=== PATIENT | female | born 1970 | race Hispanic/Latino ===

== ENCOUNTER 2017-12-24 20:55 | Observation (INO) | payer BC ==
--- NOTE | 2017-12-24 21:19 | ED PDOC ---
Arrival/HPI - General Chief Complaint: Chest Pain Time Seen by Provider: 12/24/17 21:04 Historian: Patient - History of Present Illness Narrative History of Present Illness (Text): 12/24/17 21:18 47 year old obese female, with past medical history of hypertension and cardiac stents, presents to the Emergency department complaining of mild distress due to diffused chest discomfort which began 45 minutes prior to arrival. Patient describes the pain as "something grabbing her chest". Patient informs associated nausea and radiation of discomfort to her left arm. Patient tales aspirin 81mg every 3 days, last taken yesterday. Patient denies any fever, chills, vomiting, abdominal pain, diet changes, cough, shortness of breath or any other complaints. Patient admits to smoking 1 pack of cigarettes on a daily basis but drinks alcohol very rarely. Time/Duration: 1 hour Symptom Onset: Gradual Symptom Course: Improving Quality: Aching Activities at Onset: Light Context: Home Past Medical History - Provider Review Nursing Documentation Reviewed: Yes - Cardiac Hx Cardiac Disorders: Yes Hx Hypertension: Yes Other/Comment: stent x1 2013 - Pulmonary Hx Respiratory Disorders: No - Neurological Hx Neurological Disorder: No - HEENT Hx HEENT Disorder: No - Renal Hx Renal Disorder: No - Endocrine/Metabolic Hx Endocrine Disorders: No - Hematological/Oncological Hx Blood Disorders: No - Integumentary Hx Dermatological Disorder: No - Musculoskeletal/Rheumatological Hx Musculoskeletal Disorders: No - Gastrointestinal Hx Gastrointestinal Disorders: Yes Hx Diverticulitis: Yes Hx Irritable Bowel: Yes - Genitourinary/Gynecological Hx Genitourinary Disorders: No - Psychiatric Hx Psychophysiologic Disorder: No Hx Substance Use: No - Surgical History Hx Appendectomy: Yes Hx Cardiac Catheterization: Yes Hx Section: Yes (x2) Hx Tubal Ligation: Yes Other/Comment: left ovary/fallopian tube removal Family/Social History - Physician Review Nursing Documentation Reviewed: Yes Family/Social History: No Known Family HX Smoking Status: Heavy Smoker > 10 Cigarettes Daily Hx Alcohol Use: Yes Frequency of alcohol use: Socially Hx Substance Use: No Allergies/Home Meds Allergies/Adverse Reactions: Allergies Sulfa (Sulfonamide Antibiotics) Adverse Reaction (Verified 04/19/16 17:21) Home Medications: Home Meds Medication Instructions Recorded Confirmed ALPRAZolam [Xanax] 0.25 mg PO DAILY PRN 04/19/16 12/24/17 Losartan [Cozaar] 50 mg PO BID 04/19/16 12/24/17 Metoprolol Succinate [Toprol Xl] 50 mg PO DAILY 04/19/16 12/24/17 Topiramate [Topamax] 25 mg PO BID 04/19/16 12/24/17 Chlorthalidone [Hygroton] 25 mg PO DAILY 12/24/17 12/24/17 NIFEdipine ER [Procardia XL] 30 mg PO DAILY 12/24/17 12/24/17 Review of Systems - Physician Review All systems were reviewed & negative as marked: Yes - Review of Systems Constitutional: Normal. absent: Fevers Eyes: Normal ENT: Normal Respiratory: Normal. absent: SOB, Cough Cardiovascular: Chest Pain Gastrointestinal: Nausea. absent: Abdominal Pain, Diarrhea, Vomiting, Appetite Changes Genitourinary Female: Normal Musculoskeletal: Normal Skin: Normal Neurological: Normal Endocrine: Normal Hemo/Lymphatic: Normal Psychiatric: Normal Physical Exam Vital Signs Reviewed: Yes Vital Signs Temp Pulse Resp BP Pulse Ox 12/25/17 02:30 60 26 H 106/58 L 98 12/25/17 00:14 62 17 117/76 97 12/24/17 22:41 97.3 F L 67 25 H 103/60 100 12/24/17 21:14 76 15 128/77 98 Temperature: Afebrile Blood Pressure: Normal Pulse: Regular Respiratory Rate: Normal Appearance: Positive for: Well-Appearing, Non-Toxic, Comfortable, Other (obese) Pain Distress: Mild Mental Status: Positive for: Alert and Oriented X 3 - Systems Exam Head: Present: Atraumatic, Normocephalic Pupils: Present: PERRL Extroacular Muscles: Present: EOMI Conjunctiva: Present: Normal Mouth: Present: Moist Mucous Membranes Neck: Present: Normal Range of Motion. No: JVD Respiratory/Chest: Present: Clear to Auscultation, Good Air Exchange. No: Respiratory Distress, Accessory Muscle Use Cardiovascular: Present: Regular Rate and Rhythm, Normal S1, S2, Other (no reproducible chest wall tenderness to palpation). No: Murmurs Abdomen: Present: Normal Bowel Sounds. No: Tenderness, Distention, Peritoneal Signs Back: Present: Normal Inspection Upper Extremity: Present: Normal Inspection. No: Cyanosis, Edema Lower Extremity: Present: Normal Inspection. No: Edema Neurological: Present: GCS=15, CN II-XII Intact, Speech Normal Skin: Present: Warm, Dry, Normal Color. No: Rashes Psychiatric: Present: Alert, Oriented x 3, Normal Insight, Normal Concentration Medical Decision Making ED Course and Treatment: 12/24/17 21:27 Impression: 47 year old female presents to the Emergency department for chest discomfort. Plan: -- Labs -- Reassess and disposition Progress Notes: 12/24/17 21:27 EKG: Ordered, reviewed, and independently interpreted the EKG. Rate : 75 BPM Rhythm : NSR Interpretation : No acute changes. - Lab Interpretations Lab Results: 12/24/17 21:20 12/24/17 21:20 Lab Results 12/24/17 21:20: D-Dimer, Quantitative 217 12/24/17 21:20: Sodium 141, Potassium 3.2 L, Chloride 109 H, Carbon Dioxide 23, Anion Gap 12, BUN 11, Creatinine 0.7, Est GFR ( Amer) > 60, Est GFR (Non- Af Amer) > 60, Random Glucose 107, Calcium 9.4, Total Bilirubin 0.4, AST 44 H, ALT 15, Alkaline Phosphatase 94, Troponin I < 0.01, Total Protein 6.8, Albumin 3.8, Globulin 3.1, Albumin/Globulin Ratio 1.2 12/24/17 21:20: WBC 10.4, RBC 4.08, Hgb 13.2, Hct 40.6, MCV 99.5, MCH 32.4, MCHC 32.5, RDW 13.2, Plt Count 291, MPV 10.3, Gran % 47.8 L, Lymph % (Auto) 44.4 H, [place] % (Auto) 4.8, Eos % (Auto) 2.7, Baso % (Auto) 0.3, Gran # 4.98, Lymph # (Auto) 4.6 H, [place] # (Auto) 0.5, Eos # (Auto) 0.3, Baso # (Auto) 0.03 - RAD Interpretation Radiology Orders: 12/24/17 22:23 CHEST PORTABLE [RAD] Stat 12/25/17 00:08 HEAD W/O CONTRAST [CT] Stat - Medication Orders Current Medication Orders: Acetaminophen (Tylenol 325mg Tab) 650 mg PO Q4 PRN PRN Reason: Fever >100.4 F Last Admin: 12/25/17 05:57 Dose: 650 mg Re-Assess: MAR Pain/Vitals Document 12/25/17 06:57 (Rec: 12/25/17 08:19 [id number]) Pain Reassessment Is This A Pain ReAssessment? Yes Presence of Pain Presence of Pain No Alprazolam (Xanax) 0.25 mg PO DAILY PRN; Protocol PRN Reason: Anxiety Stop: 01/01/18 02:48 Last Admin: 12/25/17 09:18 Dose: 0.25 mg Behavioural Document 12/25/17 09:18 (Rec: 12/25/17 09:18 [id number]) Maintenance Maintenance Dose Yes Re-Assess: Reassess Psych Meds Document 12/25/17 10:18 (Rec: 12/25/17 10:56 [id number]) Reassess Psych Med Effective Aspirin (Ecotrin) 81 mg PO DAILY [facility] Last Admin: 12/25/17 09:18 Dose: 81 mg Atorvastatin Calcium (Lipitor) 40 mg PO DIN [facility] Sodium Chloride (Sodium Chloride 0.9%) 1,000 mls @ 100 mls/hr IV .Q10H [facility] Last Admin: 12/25/17 04:00 Dose: 100 mls/hr eMAR Start Stop Document 12/25/17 04:00 TTC (Rec: 12/25/17 05:57 TTC [facility] [id number]) Intravenous Solution Start Date 12/25/17 Start Time 05:57 Metoprolol Succinate (Toprol Xl) 50 mg PO DAILY [facility] Last Admin: 12/25/17 09:17 Dose: Not Given Non-Admin Reason: BP Parameters Not Met [facility] Pulse and Blood Pressure Document 12/25/17 09:17 (Rec: 12/25/17 09:18 [id number]) Pulse Pulse Rate (60-90) 77 Blood Pressure Blood Pressure (100/60-150/90) 102/43 Nicotine (Nicoderm Cq) 1 patch TD DAILY [facility] Last Admin: 12/25/17 09:18 Dose: 1 patch MAR Transdermal Patch Site Document 12/25/17 09:18 (Rec: 12/25/17 09:19 [id number]) Transdermal Patch Site Transdermal Patch Site Left Shoulder Nifedipine (Procardia Xl) 30 mg PO DAILY [facility] Last Admin: 02/11/18 10:55 Dose: Pantoprazole Sodium (Protonix Ec Tab) 40 mg PO 0600 [facility] Last Admin: 12/25/17 05:58 Dose: 40 mg Discontinued Medications Acetaminophen (Tylenol 325mg Tab) 975 mg PO STAT STA Stop: 12/24/17 23:06 Last Admin: 12/24/17 23:19 Dose: 975 mg Acetaminophen/Butalbital/Caffeine (Fioricet) 1 tab PO ONCE ONE Stop: 12/25/17 09:02 Last Admin: 12/25/17 09:16 Dose: 1 tab [facility] Pain Assessment Document 12/25/17 09:16 (Rec: 12/25/17 09:17 [id number]) Pain Reassessment Is this a pain reassessment? No Presence of Pain Presence of Pain Yes Pain Scale Used Pain Scale Used Numeric Location Pain Location Body [employer] Description Intensity of Pain at present 10 Acceptable Level of Pain 8 Re-Assess: [facility] Pain Assessment Document 12/25/17 10:16 DH (Rec: 12/25/17 10:56 [id number]) Pain Reassessment Is this a pain reassessment? Yes Presence of Pain Presence of Pain No Sodium Chloride (Sodium Chloride 0.9%) 500 mls @ 999 mls/hr IV .Q31M STA Stop: 12/24/17 22:47 Last Admin: 12/24/17 22:25 Dose: 999 mls/hr eMAR Start Stop Document 12/24/17 22:25 CNR (Rec: 12/24/17 22:25 CNR [id number]) Intravenous Solution Start Date 12/24/17 Start Time 22:25 Sodium Chloride (Sodium Chloride 0.9%) 500 mls @ 999 mls/hr IV .Q31M STA Stop: 12/24/17 23:08 Last Admin: 12/24/17 23:01 Dose: 999 mls/hr eMAR Start Stop Document 12/24/17 23:01 CNR (Rec: 12/24/17 23:01 CNR [id number]) Intravenous Solution Start Date 12/24/17 Start Time 23:01 Ketorolac Tromethamine (Toradol) 30 mg IVP STAT STA Stop: 12/24/17 22:19 Last Admin: 12/24/17 22:25 Dose: 30 mg MAR Pain Assessment Document 12/24/17 22:25 CNR (Rec: 12/24/17 22:25 CNR [id number]) Pain Reassessment Is this a pain reassessment? Yes IVP Administration Document 12/24/17 22:25 CNR (Rec: 12/24/17 22:25 CNR [id number]) Charges for Administration # of IVP Administrations 1 Ondansetron HCl (Zofran Inj) 4 mg IVP STAT STA Stop: 12/25/17 08:59 Last Admin: 12/25/17 09:16 Dose: 4 mg IVP Administration Document 12/25/17 09:16 DH (Rec: 12/25/17 09:16 [id number]) Charges for Administration # of IVP Administrations 1 Potassium Chloride (K-Dur 20 Meq Er Tab) 20 meq PO STAT STA Stop: 12/24/17 23:08 Last Admin: 12/24/17 23:19 Dose: 20 meq Potassium Chloride (K-Dur 20 Meq Er Tab) 40 meq PO STAT STA Stop: 12/25/17 10:06 - Scribe Statement The provider has reviewed the documentation as recorded by the Scribe Linnette Abdul. All medical record entries made by the Sergioibamanda were at my direction and personally dictated by me. I have reviewed the chart and agree that the record accurately reflects my personal performance of the history, physical exam, medical decision making, and the department course for this patient. I have also personally directed, reviewed, and agree with the discharge instructions and disposition. Disposition/Present on Arrival - Present on Arrival Any Indicators Present on Arrival: No History of DVT/PE: No History of Uncontrolled Diabetes: No Urinary Catheter: No History of Decub. Ulcer: No History Surgical Site Infection Following: None - Disposition Have Diagnosis and Disposition been Completed?: Yes Diagnosis: Chest pain, Numbness Disposition: HOSPITALIZED Disposition Time: 02:30 Patient Plan: Admission Patient Problems: Current Active Problems Problem Status Onset Chest pain Acute Numbness Acute Condition: STABLE
[2017-12-24 22:12] LABS: BASO # 0.03 K/mm3 (0.0-2.0); BASO % 0.3 % (0.0-3.0); EOS # 0.3 (0.0-0.7); EOS % 2.7 % (1.5-5.0); GRAN # 4.98 (1.4-6.5); GRAN % 47.8 % (50.0-68.0); HEMOGLOBIN 13.2 g/dL (12.0-16.0); LYMPH # 4.6 (1.2-3.4); LYMPH % 44.4 % (22.0-35.0); MEAN CELL VOLUME 99.5 fl (80.0-105.0); MEAN CORPUSCULAR HEMOGLOBIN 32.4 pg (25.0-35.0); MEAN CORPUSCULAR HGB CONC 32.5 g/dl (31.0-37.0); MEAN PLATELET VOLUME 10.3 fl (7.0-11.0); MONO # 0.5 (0.1-0.6); MONO % 4.8 % (1.0-6.0); RBC 4.08 10^6/uL (3.5-6.1); RED CELL DISTRIBUTION WIDTH 13.2 % (11.5-14.5); WHITE BLOOD COUNT 10.4 10^3/ul (4.5-11.0)
[2017-12-24] MEDS ORDERED: Sodium Chloride 0.9% 500 ML IV STA ×2 (22:17→22:38)
[2017-12-24 22:45] LABS: ALB/GLOB RATIO 1.2 (1.1-1.8); ALBUMIN 3.8 g/dL (3.0-4.8); ALT/SGPT 15 U/L (7-56); AST/SGOT 44 U/L (14-36); BLOOD UREA NITROGEN 11 mg/dL (7-21); CALCIUM 9.4 mg/dL (8.4-10.5); GFR AFRICAN-AMERICAN > 60; GFR NON-AFRICAN AMERICAN > 60
[2017-12-24 23:02] LABS: TROPONIN I < 0.01 ng/mL
[2017-12-24] MEDS ORDERED: Potassium Chloride 20 mEq ER Tab PO STA (23:07)
--- NOTE | 2017-12-24 23:24 | ED PDOC ---
Physical Exam - Physical Exam Narrative Physical Exam (Text): pt with chest pain, intermittent, improved, numbness/tingling sensation. to fu d -dimer, ct head. 12/25/17 00:42 NIHSS 0 12/25/17 01:43 Vital Signs Reviewed: Yes Vital Signs Temp Pulse Resp BP Pulse Ox 12/25/17 00:14 62 17 117/76 97 12/24/17 22:41 97.3 F L 67 25 H 103/60 100 12/24/17 21:14 76 15 128/77 98 Blood Pressure: Normal Pulse: Regular Respiratory Rate: Normal Appearance: Positive for: Well-Appearing, Non-Toxic, Comfortable Pain Distress: None Mental Status: Positive for: Alert and Oriented X 3 - Systems Exam Head: Present: Atraumatic, Normocephalic Pupils: Present: PERRL Extroacular Muscles: Present: EOMI Conjunctiva: Present: Normal Ears: Present: Normal Mouth: Present: Moist Mucous Membranes Pharnyx: Present: Normal Nose (External): Present: Atraumatic Nose (Internal): Present: Normal Inspection Neck: Present: Normal Range of Motion Respiratory/Chest: Present: Clear to Auscultation, Good Air Exchange Cardiovascular: Present: Regular Rate and Rhythm Abdomen: No: Tenderness, Distention, Normal Bowel Sounds, Peritoneal Signs, Rebound, Guarding, McBurney's Point Tender, Rovsing's Sign Present, Hernias, Feeding Tubes, Ostomy Tubes, Mass/Organomegaly, Scars, Other Back: Present: Normal Inspection Upper Extremity: Present: Normal Inspection Lower Extremity: Present: Normal Inspection Neurological: Present: GCS=15, CN II-XII Intact, Speech Normal, Motor Func Grossly Intact Skin: Present: Warm, Normal Color Psychiatric: Present: Alert, Oriented x 3, Normal Insight, Normal Concentration Medical Decision Making ED Course and Treatment: 12/24/17 23:23pt with chest pain, intermittent, improved, numbness/tingling sensation. to fu d-dimer, ct head. NIHSS 0 Patient signed out to me by Dr. Erickson. Pending D-Dimer. CXR no acute. 12/25/17 00:32 CT Head Without Intravenous Contrast FINDINGS: Brain: Mild atrophy. No intracranial hemorrhage. No mass. Dilated perivascular space vs chronic lacunar infarct about LEFT basal ganglia. No definite edema. Ventricles: No hydrocephalus. Bones/joints: No acute fracture. Soft tissues: Unremarkable. Vasculature: Mild atherosclerotic disease of intracranial arteries. Sinuses: Scattered minimal mucosal thickening. Mastoid air cells: Minimal fluid within RIGHT mastoid. Orbits: Unremarkable as visualized. IMPRESSION: 1. No definite acute intracranial abnormality. Acute infarction may be CT occult within first 24 hours. If a focal deficit persists, consider followup CT or MRI for further evaluation. 2. Incidental/non-acute findings are described above. 12/25/17 01:44 12/25/17 01:46 d/w Dr. Seth medical imaging technologist and stated can admit. Reassessment Condition: Improved - Lab Interpretations Lab Results: 12/24/17 21:20 12/24/17 21:20 Lab Results 12/24/17 21:20: D-Dimer, Quantitative 217 12/24/17 21:20: Sodium 141, Potassium 3.2 L, Chloride 109 H, Carbon Dioxide 23, Anion Gap 12, BUN 11, Creatinine 0.7, Est GFR ( Amer) > 60, Est GFR (Non- Af Amer) > 60, Random Glucose 107, Calcium 9.4, Total Bilirubin 0.4, AST 44 H, ALT 15, Alkaline Phosphatase 94, Troponin I < 0.01, Total Protein 6.8, Albumin 3.8, Globulin 3.1, Albumin/Globulin Ratio 1.2 12/24/17 21:20: WBC 10.4, RBC 4.08, Hgb 13.2, Hct 40.6, MCV 99.5, MCH 32.4, MCHC 32.5, RDW 13.2, Plt Count 291, MPV 10.3, Gran % 47.8 L, Lymph % (Auto) 44.4 H, [place] % (Auto) 4.8, Eos % (Auto) 2.7, Baso % (Auto) 0.3, Gran # 4.98, Lymph # (Auto) 4.6 H, [place] # (Auto) 0.5, Eos # (Auto) 0.3, Baso # (Auto) 0.03 I have reviewed the lab results: Yes - RAD Interpretation Radiology Orders: 12/24/17 22:23 CHEST PORTABLE [RAD] Stat 12/25/17 00:08 HEAD W/O CONTRAST [CT] Stat Registered Dietetic Technician: Radiologist - EKG Interpretation Interpreted by ED Physician: Yes (NSR) Type: 12 lead EKG - Medication Orders Current Medication Orders: Discontinued Medications Acetaminophen (Tylenol 325mg Tab) 975 mg PO STAT STA Stop: 12/24/17 23:06 Last Admin: 12/24/17 23:19 Dose: 975 mg Sodium Chloride (Sodium Chloride 0.9%) 500 mls @ 999 mls/hr IV .Q31M STA Stop: 12/24/17 22:47 Last Admin: 12/24/17 22:25 Dose: 999 mls/hr eMAR Start Stop Document 12/24/17 22:25 CNR (Rec: 12/24/17 22:25 CNR [id number]) Intravenous Solution Start Date 12/24/17 Start Time 22:25 Sodium Chloride (Sodium Chloride 0.9%) 500 mls @ 999 mls/hr IV .Q31M STA Stop: 12/24/17 23:08 Last Admin: 12/24/17 23:01 Dose: 999 mls/hr eMAR Start Stop Document 12/24/17 23:01 CNR (Rec: 12/24/17 23:01 CNR [id number]) Intravenous Solution Start Date 12/24/17 Start Time 23:01 Ketorolac Tromethamine (Toradol) 30 mg IVP STAT STA Stop: 12/24/17 22:19 Last Admin: 12/24/17 22:25 Dose: 30 mg MAR Pain Assessment Document 12/24/17 22:25 CNR (Rec: 12/24/17 22:25 CNR [id number]) Pain Reassessment Is this a pain reassessment? Yes IVP Administration Document 12/24/17 22:25 CNR (Rec: 12/24/17 22:25 CNR [id number]) Charges for Administration # of IVP Administrations 1 Potassium Chloride (K-Dur 20 Meq Er Tab) 20 meq PO STAT STA Stop: 12/24/17 23:08 Last Admin: 12/24/17 23:19 Dose: 20 meq - Scribe Statement The provider has reviewed the documentation as recorded by the Silvestre Espinal Provider Scribe Attestation: All medical record entries made by the Sergioibamanda were at my direction and personally dictated by me. I have reviewed the chart and agree that the record accurately reflects my personal performance of the history, physical exam, medical decision making, and the department course for this patient. I have also personally directed, reviewed, and agree with the discharge instructions and disposition. Disposition/Present on Arrival - Present on Arrival Any Indicators Present on Arrival: Yes History of DVT/PE: No History of Uncontrolled Diabetes: No Urinary Catheter: No History of Decub. Ulcer: No History Surgical Site Infection Following: None - Disposition Have Diagnosis and Disposition been Completed?: Yes Diagnosis: Chest pain, Numbness Disposition: HOSPITALIZED Disposition Time: 01:53 Patient Plan: Admission, Telemetry Condition: STABLE Discharge Instructions (ExitCare): Chest Pain (ED) Referrals: PCP,NO [Primary Care Provider] - Follow up with primary Forms: [employer] ([place]) NIHSS Stroke Scale 3 - Date/Time Evaluation Performed Date Performed: 12/25/17 When Was NIHSS Performed: Baseline - How Severe is the Stroke Level of Consciousness: 0=Alert LOC to Questions: 0=Both comments correct LOC to commands: 0=Obeys both correctly Best Gaze: 0=Normal Visual: 0=No visual loss Facial: 0=Normal Motor Arm - Left: 0=No drift Motor Arm - Right: 0=No drift Motor Leg - Left: 0=No drift Motor Leg - Right: 0=No drift Limb Ataxia: 1=Present Upper or Lower Sensory: 0=Normal Best Language: 0=No aphasia Dysarthia: 0=Normal articulation Extinction & Inattention (Neglect): 0=Normal, no object Score: 1 Severity Of Stroke: 0 = No Stroke
--- NOTE | 2017-12-25 00:49 | CT ---
EXAM: CT Head Without Intravenous Contrast CLINICAL HISTORY: 47 years old, female; Signs and symptoms; Dizziness and numbness / parasthesia; Additional info: 47yof, numbness TECHNIQUE: Axial computed tomography images of the head/brain without intravenous contrast. All CT scans at this facility use one or more dose reduction techniques, viz.: automated exposure control; ma/kV adjustment per patient size (including targeted exams where dose is matched to indication; i.e. head); or iterative reconstruction technique. Coronal and sagittal reformatted images were created and reviewed. COMPARISON: No relevant prior studies available. FINDINGS: Brain: Mild atrophy. No intracranial hemorrhage. No mass. Dilated perivascular space vs chronic lacunar infarct about LEFT basal ganglia. No definite edema. Ventricles: No hydrocephalus. Bones/joints: No acute fracture. Soft tissues: Unremarkable. Vasculature: Mild atherosclerotic disease of intracranial arteries. Sinuses: Scattered minimal mucosal thickening. Mastoid air cells: Minimal fluid within RIGHT mastoid. Orbits: Unremarkable as visualized. IMPRESSION: 1. No definite acute intracranial abnormality. Acute infarction may be CT occult within first 24 hours. If a focal deficit persists, consider followup CT or MRI for further evaluation. 2. Incidental/non-acute findings are described above.
--- NOTE | 2017-12-25 03:04 | CP.PCM.HP ---
<Rolo Landeros - Last Filed: 12/25/17 03:16> History of Present Illness - History of Present Illness History of Present Illness: Rolo Landeros PGY1 IM H&P Note CC: chest pain Ms. 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 The patient denied any change in symptoms with breathing and denied any cough, vomiting or any recent illness or sick contacts. She described the pain as sharp and starting mid-sternal but spreading across. The pain lasted 10mins then resolved but she experienced two similar episodes since then. during one of those episodes, the patient experienced diffuse numbness of face, and fingers /toes, however, the patient did not think much of it due to her history of fibromyalgia. Patient was a patient of Dr. Padilla who recently moved, so as of now she has no PMD. Patient's medications are being managed by Dr. Barrera and she states that she was once requiring 7 medications to control her BP but that she is down to 4 now. She states that Dr. Barrera has recommended another physician in [place] for her to see to control her BP, and that she has an appointment with him on Tuesday. Patient last saw Dr. Jones in 07/2017 and he performed an echo which was negative. Patient denies headaches, changes in vision, slurring of speech, wheezing, cough, rhinorrhea, muscle aches, abdominal pain, weakness. 12-pt ROS was reviewed and is otherwise unremarkable. PMH: as above PSH: multiple L shoulder surgeries, 2 c-sections, tubal ligation, L oophrectomy (Due to mass), D&C Meds: as per MAR Allergies: Sulfa (skin rash) SHx: lives w/ family, 1pk tobacco smoker per day for 35 years, social ETOH, denies illicit substance abuse FHx: mother (+heart dz, +kidney dz) Present on Admission - Present on Admission Any Indicators Present on Admission: No Review of Systems - Review of Systems All systems: reviewed and no additional remarkable complaints except (as per HPI ) Past Patient History - Past Medical History & Family History Past Medical History?: Yes - Past Social History Smoking Status: Heavy Smoker > 10 Cigarettes Daily Alcohol: Social Drugs: Denies Home Situation {Lives}: With Family - CARDIAC Hx Cardiac Disorders: Yes Hx Hypertension: Yes Other/Comment: stent x1 2013 - PULMONARY Hx Respiratory Disorders: No - NEUROLOGICAL Hx Neurological Disorder: No - HEENT Hx HEENT Problems: No - RENAL Hx Chronic Kidney Disease: No - ENDOCRINE/METABOLIC Hx Endocrine Disorders: No - HEMATOLOGICAL/ONCOLOGICAL Hx Blood Disorders: No - INTEGUMENTARY Hx Dermatological Problems: No - MUSCULOSKELETAL/RHEUMATOLOGICAL Hx Musculoskeletal Disorders: No - GASTROINTESTINAL Hx Gastrointestinal Disorders: Yes Hx Diverticulitis: Yes Hx Irritable Bowel: Yes - GENITOURINARY/GYNECOLOGICAL Hx Genitourinary Disorders: No - PSYCHIATRIC Hx Psychophysiologic Disorder: No Hx Substance Use: No - SURGICAL HISTORY Hx Appendectomy: Yes Hx Cardiac Catheterization: Yes Hx Section: Yes (x2) Hx Tubal Ligation: Yes Other/Comment: left ovary/fallopian tube removal Meds Allergies/Adverse Reactions: Allergies Allergy/AdvReac Type Severity Reaction Status Date / Time Sulfa (Sulfonamide AdvReac Verified 04/19/16 17:21 Antibiotics) Physical Exam - Constitutional Appears: Well, Non-toxic, No Acute Distress - Head Exam Head Exam: ATRAUMATIC, NORMAL INSPECTION - Eye Exam Eye Exam: EOMI, Normal appearance, PERRL - ENT Exam ENT Exam: Mucous Membranes Moist, Normal Exam - Neck Exam Neck exam: Positive for: Normal Inspection - Respiratory Exam Respiratory Exam: Clear to Auscultation Bilateral, NORMAL BREATHING PATTERN. absent: Rales, Rhonchi, Wheezes, Respiratory Distress - Cardiovascular Exam Cardiovascular Exam: RRR, +S1, +S2. absent: Gallop, JVD, Rubs, Systolic Murmur - GI/Abdominal Exam GI & Abdominal Exam: Normal Bowel Sounds, Soft. absent: Distended, Tenderness - Extremities Exam Extremities exam: Positive for: normal inspection - Back Exam Back exam: NORMAL INSPECTION - Neurological Exam Neurological exam: Alert, CN II-XII Intact, Oriented x3 - Psychiatric Exam Psychiatric exam: Normal Affect, Normal Mood - Skin Skin Exam: Normal Color, Warm Results - Vital Signs Recent Vital Signs: Last Vital Signs Temp 97.3 F L 12/24/17 22:41 Pulse 60 12/25/17 02:30 Resp 26 H 12/25/17 02:30 BP 106/58 L 12/25/17 02:30 Pulse Ox 98 12/25/17 02:30 - Labs Result Diagrams: 12/24/17 21:20 12/24/17 21:20 Assessment & Plan - Assessment and Plan (Free Text) Assessment: 47yo female with a PMH of HTN, CAD s/p 1 stent, morbid obesity, diverticulitis, tobacco use and fibromyalgia who presents with chest pain and associated shortness of breath and nausea x3 hours. GERA risk index 13 (low risk ), however, given risk factors of hx cardiac disease w/ stent, obesity, htn, tobacco use and family history, the patient will be worked up for the chest pain to rule out ACS. Plan: 1. chest pain r/o ACS - EKG reviewed in ED; shows NSR w/o no wave/interval changes - initial troponin I negative - continue to trend troponin I and EKG's to r/o ACS - cont ASA daily - Cardiology consulted, recs appreciated - Lipid panel, TSH and Hgb A1C ordered - NPO in case any cardiac intervention planned - Last Stress test on chart from 2014: patient developed chest pain w/ exercise and had a hypertensive BP response to exercise - Echo from 2014 showed normal LV function w/ LVH 2. Hx HTN - currently, lower than baseline - cont Metoprolol and Nifedipine - holding Chlorthalidone, Losartan and Topamax to avoid relative hypotension - monitor VS q4 - renal US in 12/2017 was unremarkable - renal artery duplex in 09/2017 was unremarkable - Nephrology consulted, recs appreciated 3. facial and extremity numbness/tingling - likely 2/2 hypokalemia vs unstable BP - replete potassium and trend AM labs and replete as needed - CT head done and showed no acute infarcts/bleeds - neurochecks q4 4. Hx CAD - BB and ASA daily 5. tobacco smoke - nicotine patch - educate patient about risks of continued smoking 6. 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 GI/DVT PPX - SCDs - protonix Patient was seen, examined and discussed with attending, Dr. Bandar Landeros PGY1 <Miguelito Reilly N - Last Filed: 12/26/17 06:13> Results - Vital Signs Recent Vital Signs: Last Vital Signs Temp 98.2 F 12/26/17 00:01 Pulse 61 12/26/17 00:01 Resp 18 12/26/17 00:01 BP 109/55 L 12/26/17 00:01 Pulse Ox 100 12/26/17 00:01 - Labs Result Diagrams: 12/25/17 07:00 12/25/17 07:00 Labs: Laboratory Results - last 24 hr 12/25/17 12/25/17 12/25/17 07:00 07:00 07:00 WBC 7.8 D RBC 3.74 Hgb 11.8 L Hct 37.2 MCV 99.5 MCH 31.6 MCHC 31.7 RDW 13.4 Plt Count 263 MPV 10.3 PT 11.9 INR 1.03 Sodium 142 Potassium 3.4 L Chloride 110 H Carbon Dioxide 23 Anion Gap 12 BUN 11 Creatinine 0.7 Est GFR ( Amer) > 60 Est GFR (Non-Af Amer) > 60 POC Glucose (mg/dL) Random Glucose 84 Calcium 9.0 Phosphorus 3.5 Magnesium 2.3 H Total Bilirubin 0.4 AST 31 ALT 20 Alkaline Phosphatase 77 Lactate Dehydrogenase 330 L Total Creatine Kinase 32 L Troponin I < 0.01 NT-Pro-B Natriuret Pep Total Protein 6.1 Albumin 3.3 Globulin 2.8 Albumin/Globulin Ratio 1.2 Triglycerides Cholesterol LDL Cholesterol Direct HDL Cholesterol TSH 3rd Generation 12/25/17 12/25/17 12/25/17 07:00 07:00 07:38 WBC RBC Hgb Hct MCV MCH MCHC RDW Plt Count MPV PT INR Sodium Potassium Chloride Carbon Dioxide Anion Gap BUN Creatinine Est GFR ( Amer) Est GFR (Non-Af Amer) POC Glucose (mg/dL) 77 Random Glucose Calcium Phosphorus Magnesium Total Bilirubin AST ALT Alkaline Phosphatase Lactate Dehydrogenase Total Creatine Kinase Troponin I NT-Pro-B Natriuret Pep 125 Total Protein Albumin Globulin Albumin/Globulin Ratio Triglycerides 187 H Cholesterol 201 H LDL Cholesterol Direct 155 H HDL Cholesterol 30 TSH 3rd Generation 2.13 12/25/17 12/25/17 12/25/17 08:01 11:00 11:18 WBC RBC Hgb Hct MCV MCH MCHC RDW Plt Count MPV PT INR Sodium Potassium Chloride Carbon Dioxide Anion Gap BUN Creatinine Est GFR ( Amer) Est GFR (Non-Af Amer) POC Glucose (mg/dL) 145 H 77 Random Glucose Calcium Phosphorus Magnesium Total Bilirubin AST ALT Alkaline Phosphatase Lactate Dehydrogenase 282 L Total Creatine Kinase 34 L Troponin I < 0.01 NT-Pro-B Natriuret Pep Total Protein Albumin Globulin Albumin/Globulin Ratio Triglycerides Cholesterol LDL Cholesterol Direct HDL Cholesterol TSH 3rd Generation 12/25/17 12/25/17 12:30 16:31 WBC RBC Hgb Hct MCV MCH MCHC RDW Plt Count MPV PT INR Sodium Potassium Chloride Carbon Dioxide Anion Gap BUN Creatinine Est GFR ( Amer) Est GFR (Non-Af Amer) POC Glucose (mg/dL) 98 Random Glucose Calcium Phosphorus Magnesium Total Bilirubin AST ALT Alkaline Phosphatase Lactate Dehydrogenase 358 Total Creatine Kinase 34 L Troponin I < 0.01 NT-Pro-B Natriuret Pep Total Protein Albumin Globulin Albumin/Globulin Ratio Triglycerides Cholesterol LDL Cholesterol Direct HDL Cholesterol TSH 3rd Generation
[2017-12-25] MEDS: Sodium Chloride 0.9% 1,000 ML IV SCH ×3 (04:00→21:33)
[2017-12-25 05:10] VITALS: BMI 44.1
[2017-12-25] MEDS: Pantoprazole 40 mg EC Tab PO SCH (05:58)
[2017-12-25 07:43] LABS: HEMOGLOBIN 11.8 g/dL (12.0-16.0); MEAN CELL VOLUME 99.5 fl (80.0-105.0); MEAN CORPUSCULAR HEMOGLOBIN 31.6 pg (25.0-35.0); MEAN CORPUSCULAR HGB CONC 31.7 g/dl (31.0-37.0); MEAN PLATELET VOLUME 10.3 fl (7.0-11.0); RBC 3.74 10^6/uL (3.5-6.1); RED CELL DISTRIBUTION WIDTH 13.4 % (11.5-14.5); WHITE BLOOD COUNT 7.8 10^3/ul (4.5-11.0)
[2017-12-25 07:53] LABS: HDL CHOLESTEROL 30 mg/dL (29-60)
[2017-12-25 08:01] LABS: B-TYPE NATRIURETIC PEPTIDE 125 pg/mL (0-450)
[2017-12-25 08:03] LABS: LDL CHOLESTEROL 155 mg/dL (0-129)
[2017-12-25 08:05] LABS: ALB/GLOB RATIO 1.2 (1.1-1.8); ALBUMIN 3.3 g/dL (3.0-4.8); ALT/SGPT 20 U/L (7-56); AST/SGOT 31 U/L (14-36); BLOOD UREA NITROGEN 11 mg/dL (7-21); GFR AFRICAN-AMERICAN > 60; GFR NON-AFRICAN AMERICAN > 60; MAGNESIUM 2.3 mg/dL (1.7-2.2); TROPONIN I < 0.01 ng/mL
[2017-12-25 08:06] LABS: INR 1.03 (0.93-1.08); PROTHROMBIN TIME 11.9 SECONDS (9.4-12.5)
[2017-12-25] MEDS ORDERED: Apap-Butalbital-Caffeine 325-50-40mg Tab PO ONE (09:01)
[2017-12-25] MEDS ORDERED: NIFEdipine 30 mg ER Tab PO SCH (10:00)
[2017-12-25] MEDS ORDERED: Metoprolol Succinate 50 mg XL Tab PO SCH (10:00)
[2017-12-25] MEDS ORDERED: Potassium Chloride 20 mEq ER Tab PO STA (10:05)
--- NOTE | 2017-12-25 10:28 | RAD ---
HISTORY: Chest pain COMPARISON: No prior. FINDINGS: LUNGS: No active pulmonary disease. PLEURA: No significant pleural effusion identified, no pneumothorax apparent. CARDIOVASCULAR: No radiographic findings to suggest acute or significant cardiovascular disease. OSSEOUS STRUCTURES: No significant abnormalities. VISUALIZED UPPER ABDOMEN: Normal. OTHER FINDINGS: None. IMPRESSION: No active disease.
[2017-12-25 11:37] LABS: TROPONIN I < 0.01 ng/mL
--- NOTE | 2017-12-25 12:41 | CP.PCM.CON ---
History of Present Illness - History of Present Illness History of Present Illness: RENAL CONSULT Consult for hypertension 47yo female with a PMH of HTN, CAD s/p 1 stent, obesity, fibromyalgia who presents with chest pain and associated shortness of breath and nausea and hypotension. She states since our last office visit about 2 weeks ago - we d/c'd hctz and started chlorthalidone. Since that time her bp has been running in the low 100's. Yesterdya, however she states she was lightheaded and having cp associated with. She was admitted for further eval. She was seen by cardiology. Her meds have been held. She had previously been on multiple medications and her reigmen was reduced to 4 meds. On eval, at least initially her renin level was quite high (~50) and given hx of mother w/ reninoma and renal failure she was referred to the hypertension center at [facility]. We d/c'd her lasix about 6 weeks or so ago, and on a repeat renin level done about 2 weeks ago, her renin level was down to ~10. She is feeling better today. She denies n/v/cp. ros: a full detailed ros is negative except as in my hpi PMH: htn, cad, fibromylagia Meds: as per MAR Allergies: Sulfa (skin rash) SHx: lives w/ family, 1pk tobacco smoker per day for 35 years, social ETOH, denies illicit substance abuse FHx: mother ? reninoma and esrd vs reviewed gen: nad sclera anicteric op clear neck supple cv +s1+s2 lungs cta abd soft ext no edema neuro : a=Ox3 psych: nml affect skin no rash imp: hypertension/ hypotension /hypokalemia plan: agree w/ holding meds for now replete k can start resuming bp meds once bp comes up, she was tolerating losartan, metop , procardia and diuretic previously. can consider resume arb first. seems unlikely to have reninoma given that renin levels came down dramatically as outpt - was likely related to high dose loop diuretics she was previously placed on. Past Patient History - Past Medical History & Family History Past Medical History?: Yes - Past Social History Smoking Status: Heavy Smoker > 10 Cigarettes Daily - CARDIAC Hx Cardiac Disorders: Yes Hx Hypertension: Yes Other/Comment: stent x1 2012 - PULMONARY Hx Respiratory Disorders: No - NEUROLOGICAL Hx Neurological Disorder: No - HEENT Hx HEENT Problems: No - RENAL Hx Chronic Kidney Disease: No - ENDOCRINE/METABOLIC Hx Endocrine Disorders: No - HEMATOLOGICAL/ONCOLOGICAL Hx Blood Disorders: No - INTEGUMENTARY Hx Dermatological Problems: No - MUSCULOSKELETAL/RHEUMATOLOGICAL Hx Musculoskeletal Disorders: No - GASTROINTESTINAL Hx Gastrointestinal Disorders: Yes Hx Diverticulitis: Yes Hx Irritable Bowel: Yes - GENITOURINARY/GYNECOLOGICAL Hx Genitourinary Disorders: No - PSYCHIATRIC Hx Psychophysiologic Disorder: No Hx Substance Use: No - SURGICAL HISTORY Hx Appendectomy: Yes Hx Cardiac Catheterization: Yes Hx Section: Yes (x2) Hx Tubal Ligation: Yes Other/Comment: left ovary/fallopian tube removal Meds Allergies/Adverse Reactions: Allergies Allergy/AdvReac Type Severity Reaction Status Date / Time Sulfa (Sulfonamide AdvReac Verified 04/19/16 17:21 Antibiotics) - Medications Medications: Current Medications Acetaminophen (Tylenol 325mg Tab) 650 mg PO Q4 PRN PRN Reason: Fever >100.4 F Last Admin: 12/25/17 05:57 Dose: 650 mg Alprazolam (Xanax) 0.25 mg PO DAILY PRN; Protocol PRN Reason: Anxiety Stop: 01/01/18 02:48 Last Admin: 12/25/17 09:18 Dose: 0.25 mg Aspirin (Ecotrin) 81 mg PO DAILY [facility] Last Admin: 12/25/17 09:18 Dose: 81 mg Atorvastatin Calcium (Lipitor) 40 mg PO DIN [facility] Sodium Chloride (Sodium Chloride 0.9%) 1,000 mls @ 100 mls/hr IV .Q10H [facility] Last Admin: 12/25/17 04:00 Dose: 100 mls/hr Metoprolol Succinate (Toprol Xl) 50 mg PO DAILY [facility] Last Admin: 12/25/17 09:17 Dose: Not Given Nicotine (Nicoderm Cq) 1 patch TD DAILY [facility] Last Admin: 12/25/17 09:18 Dose: 1 patch Nifedipine (Procardia Xl) 30 mg PO DAILY [facility] Last Admin: 12/25/17 10:55 Dose: Not Given Pantoprazole Sodium (Protonix Ec Tab) 40 mg PO 0600 [facility] Last Admin: 12/25/17 05:58 Dose: 40 mg Topiramate (Topamax) 100 mg PO BID [facility] PRN Reason: Protocol Results - Vital Signs Recent Vital Signs: Last Vital Signs Temp 97.9 F 12/25/17 12:00 Pulse 92 H 12/25/17 12:00 Resp 19 12/25/17 12:00 BP 111/84 12/25/17 12:00 Pulse Ox 98 12/25/17 06:00 - Labs Result Diagrams: 12/25/17 07:00 12/25/17 07:00 Labs: Laboratory Results - last 24 hr 12/25/17 12/25/17 12/25/17 07:00 07:00 07:00 WBC 7.8 D RBC 3.74 Hgb 11.8 L Hct 37.2 MCV 99.5 MCH 31.6 MCHC 31.7 RDW 13.4 Plt Count 263 MPV 10.3 PT 11.9 INR 1.03 Sodium 142 Potassium 3.4 L Chloride 110 H Carbon Dioxide 23 Anion Gap 12 BUN 11 Creatinine 0.7 Est GFR ( Amer) > 60 Est GFR (Non-Af Amer) > 60 POC Glucose (mg/dL) Random Glucose 84 Calcium 9.0 Phosphorus 3.5 Magnesium 2.3 H Total Bilirubin 0.4 AST 31 ALT 20 Alkaline Phosphatase 77 Lactate Dehydrogenase 330 L Total Creatine Kinase 32 L Troponin I < 0.01 NT-Pro-B Natriuret Pep Total Protein 6.1 Albumin 3.3 Globulin 2.8 Albumin/Globulin Ratio 1.2 Triglycerides Cholesterol LDL Cholesterol Direct HDL Cholesterol TSH 3rd Generation 12/25/17 12/25/17 12/25/17 07:00 07:00 07:38 WBC RBC Hgb Hct MCV MCH MCHC RDW Plt Count MPV PT INR Sodium Potassium Chloride Carbon Dioxide Anion Gap BUN Creatinine Est GFR ( Amer) Est GFR (Non-Af Amer) POC Glucose (mg/dL) 77 Random Glucose Calcium Phosphorus Magnesium Total Bilirubin AST ALT Alkaline Phosphatase Lactate Dehydrogenase Total Creatine Kinase Troponin I NT-Pro-B Natriuret Pep 125 Total Protein Albumin Globulin Albumin/Globulin Ratio Triglycerides 187 H Cholesterol 201 H LDL Cholesterol Direct 155 H HDL Cholesterol 30 TSH 3rd Generation 2.13 12/25/17 12/25/17 12/25/17 08:01 11:00 11:18 WBC RBC Hgb Hct MCV MCH MCHC RDW Plt Count MPV PT INR Sodium Potassium Chloride Carbon Dioxide Anion Gap BUN Creatinine Est GFR ( Amer) Est GFR (Non-Af Amer) POC Glucose (mg/dL) 145 H 77 Random Glucose Calcium Phosphorus Magnesium Total Bilirubin AST ALT Alkaline Phosphatase Lactate Dehydrogenase 282 L Total Creatine Kinase 34 L Troponin I < 0.01 NT-Pro-B Natriuret Pep Total Protein Albumin Globulin Albumin/Globulin Ratio Triglycerides Cholesterol LDL Cholesterol Direct HDL Cholesterol TSH 3rd Generation
[2017-12-25 13:09] LABS: TROPONIN I < 0.01 ng/mL
--- NOTE | 2017-12-25 15:05 | MRI ---
EXAM: MR Head Without Intravenous Contrast CLINICAL HISTORY: 47 years old, female; Signs and symptoms; Syncope and collapse and walking, difficulty and weakness, extremity; Left; Additional info: Left side numbness TECHNIQUE: Magnetic resonance images of the head/brain without intravenous contrast in multiple planes. COMPARISON: CT - HEAD W/O CONTRAST 2017-12-25 00:24 FINDINGS: Brain: Examination reveals few tiny focal areas of increased T2 signal in bilateral frontal and parietal subcortical and deep white matter. These are nonspecific and could be secondary to chronic migraine headache, vasculitis, Lyme disease, demyelination and focal areas of chronic ischemia. Remainder of the brain parenchyma demonstrates normal morphology and signal intensity.No acute infarction, masses, midline shift or acute hemorrhage is seen. No acute intracranial abnormality is identified.There is no abnormal diffusion weighted signal intensity to suggest an acute ischemic event.The cortical wong / white matter interfaces are preserved throughout the brain.Intracranial flow voids are well maintained.Examination of the posterior fossa demonstrates no significant abnormality.On gradient echo imaging, no susceptibility changes are seen to represent parenchymal calcification or degraded blood products. Ventricles: The ventricular system is not dilated and is appropriate for the patient's age. Bones/joints: Unremarkable. Sinuses: Unremarkable as visualized. No acute sinusitis. Mastoid air cells: Unremarkable as visualized. No mastoid effusion. Orbits: Unremarkable as visualized. IMPRESSION: Examination reveals few tiny focal areas of increased T2 signal in bilateral frontal and parietal subcortical and deep white matter. These are nonspecific and could be secondary to chronic migraine headache, vasculitis, Lyme disease, demyelination and focal areas of chronic ischemia. No acute infarction, masses or hemorrhage is seen. No acute intracranial abnormality is identified.
--- NOTE | 2017-12-25 20:37 | CARD ---
APPROVED REPORT EKG Measurement Heart [id number] <Conclusion> Normal sinus rhythm Possible Left atrial enlargement Borderline ECG
--- NOTE | 2017-12-25 21:36 | CARD ---
APPROVED REPORT EKG Measurement Heart [id number] GA [id number] <Conclusion> Normal sinus rhythm Normal ECG
--- NOTE | 2017-12-25 21:37 | CARD ---
APPROVED REPORT EKG Measurement Heart [id number] MA [id number] <Conclusion> Normal sinus rhythm Possible Left atrial enlargement Prolonged QT Abnormal ECG
[2017-12-26 02:44] VITALS: RESP 18
[2017-12-26] MEDS: Pantoprazole 40 mg EC Tab PO SCH (05:33)
[2017-12-26 06:36] VITALS: O2SAT 96
[2017-12-26 07:15] LABS: HEMOGLOBIN 12.1 g/dL (12.0-16.0); MEAN CELL VOLUME 100.3 fl (80.0-105.0); MEAN CORPUSCULAR HEMOGLOBIN 31.8 pg (25.0-35.0); MEAN CORPUSCULAR HGB CONC 31.7 g/dl (31.0-37.0); MEAN PLATELET VOLUME 10.4 fl (7.0-11.0); RBC 3.81 10^6/uL (3.5-6.1); RED CELL DISTRIBUTION WIDTH 13.2 % (11.5-14.5); WHITE BLOOD COUNT 8.4 10^3/ul (4.5-11.0)
[2017-12-26 07:26] LABS: PROTHROMBIN TIME 11.5 SECONDS (9.4-12.5)
[2017-12-26 07:38] LABS: ALB/GLOB RATIO 1.2 (1.1-1.8); ALBUMIN 3.2 g/dL (3.0-4.8); ALT/SGPT 24 U/L (7-56); AST/SGOT 27 U/L (14-36); BLOOD UREA NITROGEN 7 mg/dL (7-21); CALCIUM 9.3 mg/dL (8.4-10.5); GFR AFRICAN-AMERICAN > 60; GFR NON-AFRICAN AMERICAN > 60
--- NOTE | 2017-12-26 08:48 | CON ---
DATE: 12/25/2017 REQUESTING PHYSICIAN: Dr. Kim. CONSULTATION: Chest pain. HISTORY OF PRESENT ILLNESS: This is a 47-year-old woman known to us from previous admissions with a history of coronary disease status post prior PCI of a left circumflex artery several years ago, now admitted with severe retrosternal chest discomfort. She states that she has just risen and developed a intense cramping sensation in the center of her chest associated with dyspnea. The pain did not improve and she became concerned and presented to the emergency room. Initial electrocardiogram and cardiac enzymes have been negative. Several years ago, she underwent a stress test which was normal; however, she had persistent symptoms and ultimately catheterization confirmed evidence of a left circumflex lesion for which she underwent PCI. She has not been compliant with Cardiology followup of late. She states that she has been having issues with blood pressure control and has been seeing Dr. Elise regularly and has been referred to a hypertension specialist in [place] next week. As mentioned, she has a history of hypertension and hyperlipidemia. She continues to smoke less than a pack per day, She is not diabetic. PAST MEDICAL HISTORY: Her past history is notable for the problems mentioned above. She also reported has a history of fibromyalgia and multiple shoulder surgeries in the past, prior D&C, left oophorectomy, tubal ligation and sections. ALLERGIES: She reportedly had a reaction with a skin rash to SULFA. CURRENT MEDICATIONS: Include Ecotrin, Nicoderm patch, nifedipine 30 mg daily, Protonix 40 mg daily, topical 50 mg daily and IV fluids. SOCIAL HISTORY: As mentioned, she smokes less than a pack per day. She drinks occasionally. 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 FAMILY HISTORY: Notable in that her mother had premature heart disease and renal insufficiency. A 10-point review of systems is notable mainly for problems as mentioned above. PHYSICAL EXAMINATION: GENERAL: She is an obese middle-aged woman. VITAL SIGNS: Her blood pressure is 102/40 with a pulse of 76 and sinus, respirations are 14. She is afebrile. HEENT: No JVD noted. NECK: Thick. CHEST: Clear to auscultation and percussion. HEART: PMI in normal position. A systolic murmur is present in the lower left sternal border. ABDOMEN: Soft, obese, nontender with normoactive bowel sounds. EXTREMITIES: No edema. SKIN: Warm and dry. PSYCHIATRIC: Mild anxiety, otherwise normal mood and affect. NEUROLOGICAL: Alert and oriented x3. No gross motor sensory is appreciable. DIAGNOSTIC DATA: Two sets of cardiac enzymes were negative. Potassium is 3.4, BUN and creatinine 11 and 0.7. White count 7.89, hemoglobin and hematocrit 11.8 and 37.2 with a platelet count of 263,000. Cholesterol is 201 with triglycerides of 187, HDL was 30 with an LDL of 155. Electrocardiogram reveals sinus rhythm with nonspecific ST-T wave abnormalities. Chest x-ray reveals a normal cardiac silhouette with increased perihilar markings. IMPRESSION: 1. Chest pain with no clear evidence of acute cardiac injury. However, given her history and risk factors, certainly coronary ischemia may be the underlying cause. 2. Labile hypertension. 3. Persistent tobacco abuse. 4. Obesity. 5. Hyperlipidemia. RECOMMENDATIONS: Followup cardiac enzymes are planned. A repeat electrocardiogram in the morning will be checked. Potassium replacement has been ordered. Smoking abstinence was strongly encouraged. Addition of statin therapy is advised. If all her cardiac enzymes are negative and she has no further pain, discharge home with outpatient stress test can be planned. The need for aggressive risk factor control was emphasized to her. Thank this consultation. I will be happy to follow through with her hospital course. Austen Jones MD
[2017-12-26] MEDS ORDERED: Apap-Butalbital-Caffeine 325-50-40mg Tab PO PRN (08:54)
--- NOTE | 2017-12-26 08:55 | CP.PCM.PN ---
Subjective - Date & Time of Evaluation Date of Evaluation: 12/26/17 Time of Evaluation: 07:00 - Subjective Subjective: Stable on 2R. No CP or SOB. + JAMES, she feels this is due to low BP. V/S noted. RSR. 115/48 PE: Lungs: clear Cor.: S1S2 Abd.: soft Ext.: no edema Neuro.: alert I/O = 2460/1850 ECGs noted. No acute changes Labs noted. K+= 4.3, trops neg. X 5 CT Head, Brain MRI noted. Objective - Vital Signs/Intake and Output Vital Signs (last 24 hours): Temp Pulse Resp BP Pulse Ox 98.3 F 63 18 113/48 L 96 12/26/17 06:00 12/26/17 06:00 12/26/17 06:00 12/26/17 06:00 12/26/17 06:00 Intake and Output: 12/26/17 12/26/17 06:59 18:59 Intake Total 2040 Output Total 1500 Balance 540 - Medications Medications: Current Medications Acetaminophen (Tylenol 325mg Tab) 650 mg PO Q4 PRN PRN Reason: Fever >100.4 F Last Admin: 12/25/17 23:11 Dose: 650 mg Alprazolam (Xanax) 0.25 mg PO DAILY PRN; Protocol PRN Reason: Anxiety Stop: 01/01/18 02:48 Last Admin: 12/25/17 09:18 Dose: 0.25 mg Aspirin (Ecotrin) 81 mg PO DAILY [facility] Last Admin: 12/25/17 09:18 Dose: 81 mg Atorvastatin Calcium (Lipitor) 40 mg PO DIN [facility] Last Admin: 12/25/17 17:52 Dose: 40 mg Sodium Chloride (Sodium Chloride 0.9%) 1,000 mls @ 100 mls/hr IV .Q10H [facility] Last Admin: 12/25/17 21:33 Dose: 100 mls/hr Metoprolol Succinate (Toprol Xl) 50 mg PO DAILY [facility] Last Admin: 12/25/17 09:17 Dose: Not Given Nicotine (Nicoderm Cq) 1 patch TD DAILY [facility] Last Admin: 12/25/17 09:18 Dose: 1 patch Nifedipine (Procardia Xl) 30 mg PO DAILY [facility] Last Admin: 12/25/17 10:55 Dose: Not Given Pantoprazole Sodium (Protonix Ec Tab) 40 mg PO 0600 [facility] Last Admin: 12/26/17 05:33 Dose: 40 mg Topiramate (Topamax) 100 mg PO BID TISHA PRN Reason: Protocol Last Admin: 12/25/17 17:52 Dose: 100 mg - Labs Labs: 12/26/17 06:30 12/26/17 06:30 PT 11.5 SECONDS (9.4-12.5) 12/26/17 06:30 INR 1.00 (0.93-1.08) 12/26/17 06:30 Assessment and Plan - Assessment and Plan (Free Text) Assessment: Chest Pain CAD/Remote PCI HBP/Low BPs now with JAMES Smoker Fibromyalgia Plan: As per Renal/Titrate BP meds As per Neuro. and Medical Team D/C tobacco d/w her Elective nuclear stress testing once BPs are stabilized, probably out-pt. OOB as daina.
[2017-12-26] MEDS ORDERED: Apap-Butalbital-Caffeine 325-50-40mg Tab PO ONE (09:00)
--- NOTE | 2017-12-26 09:50 | CARD ---
APPROVED REPORT EKG Measurement Heart [id number] <Conclusion> Normal sinus rhythm Normal ECG No change
--- NOTE | 2017-12-26 13:36 | CP.PCM.DIS ---
<Eugenio Allen - Last Filed: 12/27/17 04:36> Provider - Provider Date of Admission: 12/25/17 02:23 Attending physician: Ander Reilly MD Primary care physician: NO PRIMARY CARE PROVIDER Consults: Nephrology: Dr. Barrera Neurology: Dr. Iqbal Cardiology: Dr. Jones Time Spent in preparation of Discharge (in minutes): 45 Diagnosis - Discharge Diagnosis (1) Chest pain Status: Acute Priority: High (2) Numbness Status: Acute Priority: High (3) Hypertension Status: Chronic Priority: Medium Hospital Course - Lab Results Lab Results: Most Recent Lab Values WBC 8.4 10^3/ul (4.5-11.0) 12/26/17 06:30 RBC 3.81 10^6/uL (3.5-6.1) 12/26/17 06:30 Hgb 12.1 g/dL (12.0-16.0) 12/26/17 06:30 Hct 38.2 % (36.0-48.0) 12/26/17 06:30 MCV 100.3 fl (80.0-105.0) 12/26/17 06:30 MCH 31.8 pg (25.0-35.0) 12/26/17 06:30 MCHC 31.7 g/dl (31.0-37.0) 12/26/17 06:30 RDW 13.2 % (11.5-14.5) 12/26/17 06:30 Plt Count 269 10^3/uL (120.0-450.0) 12/26/17 06:30 MPV 10.4 fl (7.0-11.0) 12/26/17 06:30 Gran % 47.8 % (50.0-68.0) L 12/24/17 21:20 Lymph % (Auto) 44.4 % (22.0-35.0) H 12/24/17 21:20 Roosevelt % (Auto) 4.8 % (1.0-6.0) 12/24/17 21:20 Eos % (Auto) 2.7 % (1.5-5.0) 12/24/17 21:20 Baso % (Auto) 0.3 % (0.0-3.0) 12/24/17 21:20 Gran # 4.98 (1.4-6.5) 12/24/17 21:20 Lymph # (Auto) 4.6 (1.2-3.4) H 12/24/17 21:20 Roosevelt # (Auto) 0.5 (0.1-0.6) 12/24/17 21:20 Eos # (Auto) 0.3 (0.0-0.7) 12/24/17 21:20 Baso # (Auto) 0.03 K/mm3 (0.0-2.0) 12/24/17 21:20 PT 11.5 SECONDS (9.4-12.5) 12/26/17 06:30 INR 1.00 (0.93-1.08) 12/26/17 06:30 D-Dimer, Quantitative 217 ng/mL (0-243) 12/24/17 21:20 Sodium 144 mmol/L (132-148) 12/26/17 06:30 Potassium 4.3 mmol/L (3.6-5.0) 12/26/17 06:30 Chloride 113 mmol/L (98-107) H 12/26/17 06:30 Carbon Dioxide 22 mmol/L (21-33) 12/26/17 06:30 Anion Gap 13 (10-20) 12/26/17 06:30 BUN 7 mg/dL (7-21) 12/26/17 06:30 Creatinine 0.6 mg/dl (0.7-1.2) L 12/26/17 06:30 Est GFR ( Amer) > 60 12/26/17 06:30 Est GFR (Non-Af Amer) > 60 12/26/17 06:30 POC Glucose (mg/dL) 77 mg/dL (65-110) 12/26/17 11:16 Random Glucose 90 mg/dL (70-110) 12/26/17 06:30 Hemoglobin A1c 5.5 % (4.2-6.5) 12/25/17 02:00 Calcium 9.3 mg/dL (8.4-10.5) 12/26/17 06:30 Phosphorus 3.5 mg/dL (2.5-4.5) 12/25/17 07:00 Magnesium 2.3 mg/dL (1.7-2.2) H 12/25/17 07:00 Total Bilirubin 0.3 mg/dL (0.2-1.3) 12/26/17 06:30 AST 27 U/L (14-36) 12/26/17 06:30 ALT 24 U/L (7-56) 12/26/17 06:30 Alkaline Phosphatase 75 U/L (38-126) 12/26/17 06:30 Lactate Dehydrogenase 358 U/L (333-699) 12/25/17 12:30 Total Creatine Kinase 34 U/L (35-230) L 12/25/17 12:30 Troponin I < 0.01 ng/mL 12/26/17 06:30 NT-Pro-B Natriuret Pep 125 pg/mL (0-450) 12/25/17 07:00 Total Protein 6.0 g/dL (5.8-8.3) 12/26/17 06:30 Albumin 3.2 g/dL (3.0-4.8) 12/26/17 06:30 Globulin 2.7 gm/dL 12/26/17 06:30 Albumin/Globulin Ratio 1.2 (1.1-1.8) 12/26/17 06:30 Triglycerides 187 mg/dL (35-160) H 12/25/17 07:00 Cholesterol 201 mg/dL (130-200) H 12/25/17 07:00 LDL Cholesterol Direct 155 mg/dL (0-129) H 12/25/17 07:00 HDL Cholesterol 30 mg/dL (29-60) 12/25/17 07:00 TSH 3rd Generation 2.13 mIU/mL (0.46-4.68) 12/25/17 07:00 - Hospital Course Hospital Course: Ms. 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 The patient denied any change in symptoms with breathing and denied any cough, vomiting or any recent illness or sick contacts. She described the pain as sharp and starting mid-sternal but spreading across. The pain lasted 10mins then resolved but she experienced two similar episodes since then. during one of those episodes, the patient experienced diffuse numbness of face, and fingers /toes, however, the patient did not think much of it due to her history of fibromyalgia. Patient was a patient of Dr. Padilla who recently moved, so as of now she has no PMD. Patient's medications are being managed by Dr. Barrera and she states that she was once requiring 7 medications to control her BP but that she is down to 4 now. She states that Dr. Barrera has recommended another physician in [place] for her to see to control her BP, and that she has an appointment with him tomorrow. Patient last saw Dr. Jones in 07/2017 and he performed an echo which was negative. Patient also endorsed during hospital visit that she is normally hypertensive however since being switched from HCTZ to clorthalidone she has been hypotensive which triggers her headaches. States she can't have her SBP go above 160 or below 110 or else headaches will ensue. From renal perspective patient was cleared for discharge considering she was no longer hypertensive. Patient was then instructed to follow up with her vaccine specialist within one week for further follow up regarding hospital visit and renal specialist visit tomorrow. Lifestyle modification such as weight loss and exercise was recommended. Patient was also cleared from a cardiology standpoint with recommendations for a nuclear stress test as outpatient. From a neurological standpoint since MRI of brain showed no acute bleeding or mass effect and was cleared from a neurological standpoint. Patient will follow up with her neurologist regarding hospital visit. Patient was in agreement with plan of discharge and then dischargef. Case discussed and reviewed with Dr. Melba Allen PGY1 Discharge Exam - Head Exam Head Exam: ATRAUMATIC, NORMAL INSPECTION, NORMOCEPHALIC - Eye Exam Eye Exam: EOMI, Normal appearance Pupil Exam: NORMAL ACCOMODATION, PERRL - ENT Exam ENT Exam: Mucous Membranes Moist, Normal Exam - Neck Exam Neck exam: Full Rom - Respiratory Exam Respiratory Exam: Clear to PA & Lateral, NORMAL BREATHING PATTERN, UNREMARKABLE - Cardiovascular Exam Cardiovascular Exam: REGULAR RHYTHM, +S1, +S2 - GI/Abdominal Exam GI & Abdominal Exam: Normal Bowel Sounds, Unremarkable - Extremities Exam Extremities exam: normal inspection - Back Exam Back exam: NORMAL INSPECTION - Neurological Exam Neurological exam: Alert, CN II-XII Intact, Oriented x3 - Psychiatric Exam Psychiatric exam: Normal Affect, Normal Mood - Skin Skin Exam: Intact, Normal Color, Warm Discharge Plan - Discharge Medications Prescriptions: Acetaminophen/Butalbital/Caf [Fioricet] 1 tab PO Q6 PRN #40 tab PRN Reason: Migraine Headache Aspirin [Ecotrin] 81 mg PO DAILY #30 tabec Atorvastatin [Lipitor] 40 mg PO DIN #30 tab Topiramate [Topamax] 100 mg PO BID #28 tab - Follow Up Plan Condition: STABLE Disposition: HOME/ ROUTINE Instructions: Migraine Headache (DC), Cigarette Smoking and Your Health (GEN), Hypotension (DC), Dizziness (GEN) Additional Instructions: Discharge instructions 1. Follow up with Dr. Austen Jones, [employer], within 1 week, for outpatient stres test. 2. Follow up with Dr. Espinoza Barrera, Inside Outside Sales Representative, within 1 week, for continual blood pressure control 3. Follow up with outpatient neurologist, Dr. Elizondo, within 1 week for continual headache control 4. Call primary care doctor, Dr. Alvarez, for any changes in conditions 5. Smoking cessation strongly advised Medication changes HOLD Losartan 50mg twice daily HOLD Nifedipine 30mg daily HOLD Hydroton 25 md daily HOLD Losartan 50 mg twice daily New med: - Topamax increased to 100mg twice daily - Aspirin 81 mg daily for stroke prevention - Lipitor 40mg at dinner time for stroke prevention - fioricet prn for migraine Referrals: Favian Elizondo MD [Staff Provider] - Espinoza Barrera MD [Staff Provider] - Austen Jones MD [Staff Provider] - TAMI HAN [Primary Care Provider] - <Ander Reilly - Last Filed: 12/27/17 14:46> Provider - Provider Date of Admission: 12/25/17 02:23 Attending physician: Ander Reilly MD Primary care physician: TAMI PRIMARY CARE PROVIDER Hospital Course - Lab Results Lab Results: Most Recent Lab Values WBC 8.4 10^3/ul (4.5-11.0) 12/26/17 06:30 RBC 3.81 10^6/uL (3.5-6.1) 12/26/17 06:30 Hgb 12.1 g/dL (12.0-16.0) 12/26/17 06:30 Hct 38.2 % (36.0-48.0) 12/26/17 06:30 MCV 100.3 fl (80.0-105.0) 12/26/17 06:30 MCH 31.8 pg (25.0-35.0) 12/26/17 06:30 MCHC 31.7 g/dl (31.0-37.0) 12/26/17 06:30 RDW 13.2 % (11.5-14.5) 12/26/17 06:30 Plt Count 269 10^3/uL (120.0-450.0) 12/26/17 06:30 MPV 10.4 fl (7.0-11.0) 12/26/17 06:30 Gran % 47.8 % (50.0-68.0) L 12/24/17 21:20 Lymph % (Auto) 44.4 % (22.0-35.0) H 12/24/17 21:20 Roosevelt % (Auto) 4.8 % (1.0-6.0) 12/24/17 21:20 Eos % (Auto) 2.7 % (1.5-5.0) 12/24/17 21:20 Baso % (Auto) 0.3 % (0.0-3.0) 12/24/17 21:20 Gran # 4.98 (1.4-6.5) 12/24/17 21:20 Lymph # (Auto) 4.6 (1.2-3.4) H 12/24/17 21:20 Roosevelt # (Auto) 0.5 (0.1-0.6) 12/24/17 21:20 Eos # (Auto) 0.3 (0.0-0.7) 12/24/17 21:20 Baso # (Auto) 0.03 K/mm3 (0.0-2.0) 12/24/17 21:20 PT 11.5 SECONDS (9.4-12.5) 12/26/17 06:30 INR 1.00 (0.93-1.08) 12/26/17 06:30 D-Dimer, Quantitative 217 ng/mL (0-243) 02/10/18 21:20 Sodium 144 mmol/L (132-148) 12/26/17 06:30 Potassium 4.3 mmol/L (3.6-5.0) 12/26/17 06:30 Chloride 113 mmol/L (98-107) H 12/26/17 06:30 Carbon Dioxide 22 mmol/L (21-33) 12/26/17 06:30 Anion Gap 13 (10-20) 12/26/17 06:30 BUN 7 mg/dL (7-21) 12/26/17 06:30 Creatinine 0.6 mg/dl (0.7-1.2) L 12/26/17 06:30 Est GFR ( Amer) > 60 12/26/17 06:30 Est GFR (Non-Af Amer) > 60 12/26/17 06:30 POC Glucose (mg/dL) 78 mg/dL (65-110) 12/26/17 15:57 Random Glucose 90 mg/dL (70-110) 12/26/17 06:30 Hemoglobin A1c 5.5 % (4.2-6.5) 12/25/17 02:00 Calcium 9.3 mg/dL (8.4-10.5) 12/26/17 06:30 Phosphorus 3.5 mg/dL (2.5-4.5) 12/25/17 07:00 Magnesium 2.3 mg/dL (1.7-2.2) H 12/25/17 07:00 Total Bilirubin 0.3 mg/dL (0.2-1.3) 12/26/17 06:30 AST 27 U/L (14-36) 12/26/17 06:30 ALT 24 U/L (7-56) 12/26/17 06:30 Alkaline Phosphatase 75 U/L (38-126) 12/26/17 06:30 Lactate Dehydrogenase 358 U/L (333-699) 12/25/17 12:30 Total Creatine Kinase 34 U/L (35-230) L 12/25/17 12:30 Troponin I < 0.01 ng/mL 12/26/17 06:30 NT-Pro-B Natriuret Pep 125 pg/mL (0-450) 12/25/17 07:00 Total Protein 6.0 g/dL (5.8-8.3) 12/26/17 06:30 Albumin 3.2 g/dL (3.0-4.8) 12/26/17 06:30 Globulin 2.7 gm/dL 12/26/17 06:30 Albumin/Globulin Ratio 1.2 (1.1-1.8) 12/26/17 06:30 Triglycerides 187 mg/dL (35-160) H 12/25/17 07:00 Cholesterol 201 mg/dL (130-200) H 12/25/17 07:00 LDL Cholesterol Direct 155 mg/dL (0-129) H 12/25/17 07:00 HDL Cholesterol 30 mg/dL (29-60) 12/25/17 07:00 TSH 3rd Generation 2.13 mIU/mL (0.46-4.68) 12/25/17 07:00 Attending/Attestation - Attestation I have personally seen and examined this patient.: Yes I have fully participated in the care of the patient.: Yes I have reviewed all pertinent clinical information, including history, physical exam and plan: Yes Notes (Text): I have seen and examined the patient at bedside. Agree with the above note with the following additions/ exceptions: Briefly this is 47 year old female with history of HTN, fibromyalgia, obesity, CAD s/p 1 BUDDY who was admitted for chest pain, hypotension and migraine headache. Neuro and cardio on board. Patient completed plavix 2 years ago and takes aspirin every other day as per spanish language lecturer recommendation. ACS ruled out. Tobacco cessation counselling provided. Outpatient stress test recommended. MRI brain was non specific. Her headache was most likely due to transient brain hypoperfusion due to low BP. Her BP meds were adjusted outpatient however she remains hypo or normotensive. Patient has an appointment tomorrow for further renal work up. As per vaccine specialist, patient had initially elevated renin levels and as patient reported FH of reninoma , patient is being referred to [facility] hypertension clinic. She burnett an appointment tomorrow. Upon discharge patient will follow up with Dr Padilla, Dr Barrera and Dr Cal Iqbal. Dr Ander Reilly
--- NOTE | 2017-12-26 15:24 | CON ---
DATE: 12/26/2017 NEUROLOGY CONSULT CHIEF COMPLAINT: History of headache and generalized numbness. HISTORY OF PRESENT ILLNESS: This is a 47-year-old woman with past medical history of hypertension, coronary artery disease status post one stent, morbid obesity, diverticulosis, smoker, and fibromyalgia, who presented with chest pain intermittently with nausea, and also had numbness of her face, in her finger, and her toes. She has a history of migraines, which she usually has worsening throughout her menstruation cycle. Otherwise, she is on Topamax 100 mg p.o. b.i.d. for her migraines. It was found that she had low systolic and diastolic blood pressures in the hospital prior to her admission and negative troponin; therefore, was nothing like NSTEMI. Currently, no focal weakness of the extremities. edge of the bed. ALLERGIES: SULFA DRUGS. SOCIAL HISTORY: She is a smoker, smokes one pack per day for the past 35 years. Socially EtOH use. No illicit drug use. FAMILY HISTORY: History of heart disease and kidney disease in the family. PAST SURGICAL HISTORY: She has multiple left shoulder surgeries, two , tubal ligation, left oophorectomy due to mass, D and C. PAST MEDICAL HISTORY: History of hypertension CAD status post stent, morbid obesity, fibromyalgia, tobacco use, diverticulitis. MEDICATIONS: Reviewed by nursing reconciliation sheet. REVIEW OF SYSTEMS: A 14-point review of systems is negative except as per the HPI. PHYSICAL EXAMINATION VITAL SIGNS: Temperature 98.2, pulse rate 68, blood pressure 113/48, respiratory rate 18, oxygen saturation 96% by room air. GENERAL: The patient is sitting up in bed, in no acute distress. HEENT: Atraumatic, normocephalic. PERRLA. Extraocular muscles intact. NECK: Supple. No JVD, no adenopathy noted. LUNGS: Clear to auscultation. No adventitious sounds. HEART: S1 and S2. Normal rate and rhythm. No murmurs, rubs, or gallops. ABDOMEN: Soft, nontender, and nondistended. Bowel sounds are present. EXTREMITIES: No clubbing. No cyanosis. Peripheral pulses 2+ felt bilaterally. NEUROLOGIC: The patient is alert and oriented to person, place, month, and year. Speech is fluent without any errors. Cranial nerves II through XII intact. Motor exam: Moves all extremities equally. Toes are downgoing bilaterally. Sensory exam: Light touch, pinprick, proprioception, and vibration intact. DTRs are 2+ throughout and one at the ankles. Coordination: [id number] intact. Gait is deferred for now. LABORATORY DATA: Sodium is 144, potassium 4.3, chloride 113, carbon dioxide 22. BUN of 7, creatinine 0.6. Random glucose 90. ASSESSMENT AND PLAN: This is a 47-year-old woman with morbid obesity, hypertension, coronary artery disease status post one stent, diverticulitis, and migraine headaches, who presented with intermittent chest pain, musculoskeletal type. Troponins were negative. I was consulted and given her facial numbness and toe numbness, which was likely secondary to transient cerebral hypoperfusion given her low systolic and diastolic blood pressures. At this time, her migraines are currently stabilized. Recommend: 1. Continue with aspirin 81 mg p.o. daily for stroke prevention. 2. Lipitor 40 mg p.o. daily for dyslipidemia and stroke prevention. 3. Xanax 0.25 mg p.o. daily for underlying anxiety. 4. Fioricet one tablet q. 6 hours for acute onset headache and continue with Topamax 100 mg p.o. b.i.d. for underlying headache prevention. She can follow up with me as an outpatient. She is currently stable from neuro standpoint for discharge. Cal Iqbal MD
[2017-12-26 15:25] VITALS: BP 127/85; TEMP 98.1
[2017-12-26 16:31] VITALS: PULSE 61
--- NOTE | 2017-12-26 19:20 | CP.PCM.PN ---
Subjective - Date & Time of Evaluation Date of Evaluation: 12/26/17 Time of Evaluation: 11:00 - Subjective Subjective: Follow up Nephrology Consultation Note Assessment: Stable HTN tightly controlled chest pain hypokalemia morbid obesity Plan HTN stable off BP meds she has appt with see HTN specialist at [facility] stable for d/c from renal perspective but to f/up with renal office within 1 week need weight loss, lifestyle modifications Further work up for as per primary team Thanks for allowing me to participate in care of your patient. Please call if any Qs Dr Jorge Cruz Office: [phone] Subjective: Noted events overnight. Patients feels okay. chest pain better. has frontal headache with dizzines/vertigo Physical Examination: General Appearance: Comfortable, in no acute respiratory distress, co-operative . obese Vitals reviewed and noted as below Head; Atraumatic, normocephalic ENT: no ulcers no thrush. Tongue is midline. Oropharynx: no rash or ulcers. EYES: Pupils are equal, round and reactive to light accommodation. Eye muscles and extraocular movement intact. Sclera is anicteric. Neck; supple no lymphadenopathy, no thyromegaly or bruit Lungs: Normal respiratory rate/effort. Breath sounds bilateral equal and clear Heart: Normal rate. s1s2 normal. No rub or gallop. Extremities: no edema. No varicose veins Neurological: Patient is alert, awake and oriented to person, place and time. No focal deficit. Strength bilateral appropriate and equal Skin: Warm and dry. Normal turgor. No rash. Palpitation: Normal elasticity for age Abdomen: Abdomen is soft. Bowel sounds +. There is no abdominal tenderness, no guarding/rigidity no organomegaly Psych: normal insight and normal affect/mood MSK: no joint tenderness or swelling. Digits and nails normal, no deformity : kidney or bladder not palpable Labs/imaging reviewed. Past medical history, past surgical history, family history, social history, allergy reviewed and noted as below Family hx: no hx of CKD. Rest non-contributory Objective - Vital Signs/Intake and Output Vital Signs (last 24 hours): Temp Pulse Resp BP Pulse Ox 98.1 F 61 18 127/85 96 12/26/17 12:00 12/26/17 14:00 12/26/17 12:00 12/26/17 12:00 12/26/17 06:00 Intake and Output: 12/26/17 12/27/17 18:59 06:59 Intake Total 900 Output Total 5 Balance 895 - Labs Labs: 12/26/17 06:30 12/26/17 06:30 PT 11.5 SECONDS (9.4-12.5) 12/26/17 06:30 INR 1.00 (0.93-1.08) 12/26/17 06:30
== END 2017-12-26 18:47 | disposition home or self-care (01) ==
LOC: ED 20:55 → ERH 12-25 02:23 → 2RSO 12-25 03:48
PROVIDERS: ADMIT Internal Medicine; ATTEND Hospitalist
DX: R07.89 Other chest pain (principal); I25.10 Atherosclerotic heart disease of native coronary artery without angina pectoris; E66.01 Morbid (severe) obesity due to excess calories; E78.5 Hyperlipidemia, unspecified; E87.6 Hypokalemia; F17.210 Nicotine dependence, cigarettes, uncomplicated; F41.9 Anxiety disorder, unspecified; G43.909 Migraine, unspecified, not intractable, without status migrainosus; K57.92 Diverticulitis of intestine, part unspecified, without perforation or abscess without bleeding; K58.9 Irritable bowel syndrome, unspecified; M79.7 Fibromyalgia; Z79.82 Long term (current) use of aspirin; Z90.49 Acquired absence of other specified parts of digestive tract; Z90.721 Acquired absence of ovaries, unilateral; Z91.19 Patient's noncompliance with other medical treatment and regimen; Z95.5 Presence of coronary angioplasty implant and graft; Z98.51 Tubal ligation status; R20.0 Anesthesia of skin; Z68.41 Body mass index [BMI] 40.0-44.9, adult
CPT/HCPCS: 36415; 70450; 70551; 71045; 80053; 80061; 82550; 82948; 83036; 83615; 83735; 83880; 84100; 84443; 84484; 85025; 85027; 85378; 85610; 93005; 96374; 99285; G0378; J1885; J2405; J7040

== ENCOUNTER 2018-04-26 13:13 | Emergency (ER) | payer BC ==
[2018-04-26 13:13] VITALS: BMI 44.1
[2018-04-26 13:37] VITALS: O2SAT 99
--- NOTE | 2018-04-26 13:51 | ED PDOC ---
Arrival/HPI - General Chief Complaint: Dizziness/Lightheaded Time Seen by Provider: 04/26/18 13:29 Historian: Patient - History of Present Illness Narrative History of Present Illness (Text): 04/26/18 13:47 Patient reports headache and parasthesias to the face (around nose and mouth), bilateral hands, and bilateral feet for the past 3 days. States that she has a history of migraines and takes Topamax, but she has not had a migraine in a year and a half. States that her headaches were frequently associated with blood pressure, however she lost a significant amount of weight recently and has had improved BP as a result, went from taking 4 antihypertensives to now only taking Losartan PRN. Denies weakness or complete numbness to her face and extremities. She was admitted 4 months ago for similar symptoms plus chest pain , had negative MRI brain at the time, and was instructed to follow up with multiple specialists, however she did not follow up with anyone. Time/Duration: Other (3 days) Symptom Onset: Gradual Symptom Course: Worsening Quality: Other (Parasthesias to extremities/face) Past Medical History - Provider Review Nursing Documentation Reviewed: Yes - Travel History Have you recently traveled outside [place] w/in the past 3 mons?: No - Infectious Disease Hx of Infectious Diseases: None - Reproductive Menopause: No - Cardiac Hx Cardiac Disorders: Yes Hx Hypertension: Yes Other/Comment: stent x1 2013 - Pulmonary Hx Respiratory Disorders: No - Neurological Hx Neurological Disorder: No - HEENT Hx HEENT Disorder: No - Renal Hx Renal Disorder: No - Endocrine/Metabolic Hx Endocrine Disorders: No - Hematological/Oncological Hx Blood Disorders: No - Integumentary Hx Dermatological Disorder: No - Musculoskeletal/Rheumatological Hx Musculoskeletal Disorders: No - Gastrointestinal Hx Gastrointestinal Disorders: Yes Hx Diverticulitis: Yes Hx Irritable Bowel: Yes - Genitourinary/Gynecological Hx Genitourinary Disorders: No - Psychiatric Hx Psychophysiologic Disorder: No Hx Substance Use: No - Surgical History Hx Appendectomy: Yes Hx Cardiac Catheterization: Yes Hx Section: Yes (x2) Hx Tubal Ligation: Yes Other/Comment: left ovary/fallopian tube removal - Anesthesia Hx Anesthesia Reactions: No Family/Social History - Physician Review Nursing Documentation Reviewed: Yes Family/Social History: Other (Renal disease (mother)) Smoking Status: Heavy Smoker > 10 Cigarettes Daily Hx Alcohol Use: Yes Hx Substance Use: No Allergies/Home Meds Allergies/Adverse Reactions: Allergies Sulfa (Sulfonamide Antibiotics) Adverse Reaction (Verified 04/26/18 13:36) RASH Home Medications: Home Meds Medication Instructions Recorded Confirmed ALPRAZolam [Xanax] 0.25 mg PO DAILY PRN 04/19/16 12/24/17 Review of Systems - Review of Systems Constitutional: Normal Respiratory: Normal Cardiovascular: Other (Patient reports a "twinge" of chest pain sometimes, currently denies) Gastrointestinal: Normal Musculoskeletal: Other (Joint pain- constant from fibromyalgia per patient) Skin: Normal Neurological: Headache, Other (Parasthesias) Physical Exam Vital Signs Reviewed: Yes Vital Signs Temp Pulse Resp BP Pulse Ox 04/26/18 15:23 62 18 164/89 H 99 04/26/18 13:36 98.2 F 64 20 191/81 H 99 Temperature: Afebrile Blood Pressure: Hypertensive Pulse: Regular Respiratory Rate: Normal Appearance: Positive for: Well-Appearing, Non-Toxic, Comfortable Pain Distress: Mild Mental Status: Positive for: Alert and Oriented X 3 Finger Stick Blood Glucose: 79 - Systems Exam Head: Present: Atraumatic, Normocephalic Pupils: Present: PERRL Extroacular Muscles: Present: EOMI Conjunctiva: Present: Normal Mouth: Present: Moist Mucous Membranes Neck: Present: Normal Range of Motion. No: Meningeal Signs Respiratory/Chest: Present: Clear to Auscultation Cardiovascular: Present: Regular Rate and Rhythm Abdomen: No: Tenderness, Distention, Rebound, Guarding Upper Extremity: Present: Normal Inspection, Neurovascularly Intact. No: Tenderness, Swelling Lower Extremity: Present: Normal Inspection, Neurovascularly Intact. No: Tenderness, Swelling Neurological: Present: GCS=15, Speech Normal, Normal Sensory Function, Normal Cerebellar Funct Skin: Present: Warm, Dry Psychiatric: Present: Alert, Oriented x 3 Medical Decision Making ED Course and Treatment: Patient given 1L NS bolus, reglan plus benadryl, and toradol IV for headache. On re-eval patient states that she still has headache and numbness. Tylenol PO ordered for further pain control. Discussed that patient needs to follow up with neurology and cardiology as recommended when she was discharged from her prior admission in December. 04/26/18 15:44 BP 164/89 without any intervention. 04/26/18 16:03 Patient complains of continued headache- mag sulfate ivpb, depakote ivpb, and decadron ivp ordered. 04/26/18 16:29 Patient states that she would rather go home than try any additional medication. Requests refill of Fioricet because she only has one tab left- this was written. Advised patient to follow up with neurology and return to the Emergency department for any new or worsening symptoms. - Lab Interpretations Lab Results: 04/26/18 14:20 04/26/18 14:20 Lab Results 04/26/18 14:20: Sodium 144, Potassium 4.0, Chloride 109 H, Carbon Dioxide 23, Anion Gap 16, BUN 7, Creatinine 0.6 L, Est GFR ( Amer) > 60, Est GFR (Non -Af Amer) > 60, Random Glucose 99, Calcium 8.7, Total Bilirubin 0.2, AST 27, ALT 17, Alkaline Phosphatase 89, Troponin I < 0.01, Total Protein 7.1, Albumin 4.1, Globulin 3.1, Albumin/Globulin Ratio 1.3 04/26/18 14:20: WBC 10.5 D, RBC 4.35, Hgb 14.2 D, Hct 42.6, MCV 97.9, MCH 32.6 , MCHC 33.3, RDW 13.7, Plt Count 298, MPV 10.0, Gran % 55.7, Lymph % (Auto) 39.3 H, [place] % (Auto) 2.6, Eos % (Auto) 2.0, Baso % (Auto) 0.4, Gran # 5.83, Lymph # (Auto) 4.1 H, [place] # (Auto) 0.3, Eos # (Auto) 0.2, Baso # (Auto) 0.04 - EKG Interpretation EKG Interpretation (Text): NSR at 67 bpm, normal axis, normal CO, normal QRS, normal QTc, no ST/T changes Interpreted by ED Physician: Yes Type: 12 lead EKG - Medication Orders Current Medication Orders: Magnesium Sulfate/Dextrose (Magnesium Sulfate 1 Gm/100 Ml D5w) 1 gm in 100 mls @ 100 mls/hr IVPB ONCE STA Stop: 04/26/18 16:54 Discontinued Medications Acetaminophen (Tylenol 325mg Tab) 975 mg PO STAT STA Stop: 04/26/18 15:16 Last Admin: 04/26/18 15:42 Dose: 975 mg MAR Pain/Vitals Document 04/26/18 15:42 EQ (Rec: 04/26/18 15:42 EQ [id number]) Pain Reassessment Is This A Pain ReAssessment? No Sleep Is patient sleeping during reassessment? No Presence of Pain Presence of Pain No Dexamethasone (Decadron Inj) 8 mg IVP STAT STA Stop: 04/26/18 15:56 Diphenhydramine HCl (Benadryl) 25 mg IVP STAT STA Stop: 04/26/18 13:46 Last Admin: 04/26/18 14:07 Dose: 25 mg IVP Administration Document 04/26/18 14:07 EQ (Rec: 04/26/18 14:07 EQ [id number]) Charges for Administration # of IVP Administrations 1 Sodium Chloride (Sodium Chloride 0.9%) 1,000 mls @ 999 mls/hr IV .Q1H1M STA Stop: 04/26/18 14:46 Last Admin: 04/26/18 14:13 Dose: 999 mls/hr eMAR Start Stop Document 04/26/18 14:13 EQ (Rec: 04/26/18 14:13 EQ [id number]) Intravenous Solution Start Date 04/26/18 Start Time 14:13 Valproate Sodium 500 mg/ (Sodium Chloride) 55 mls @ 150 mls/hr IVPB STAT STA Stop: 04/26/18 16:16 Ketorolac Tromethamine (Toradol) 30 mg IVP STAT STA Stop: 04/26/18 13:46 Last Admin: 04/26/18 14:08 Dose: 30 mg MAR Pain Assessment Document 04/26/18 14:08 EQ (Rec: 04/26/18 14:08 EQ [id number]) Pain Reassessment Is this a pain reassessment? No Sleep Is patient sleeping during reassessment? No Presence of Pain Presence of Pain Yes Pain Scale Used Pain Scale Used Numeric IVP Administration Document 04/26/18 14:08 EQ (Rec: 04/26/18 14:08 EQ [id number]) Charges for Administration # of IVP Administrations 1 Metoclopramide HCl (Reglan) 10 mg IVP STAT STA Stop: 04/26/18 13:50 Last Admin: 04/26/18 14:12 Dose: 10 mg IVP Administration Document 04/26/18 14:12 EQ (Rec: 04/26/18 14:12 EQ [id number]) Charges for Administration # of IVP Administrations 1 Disposition/Present on Arrival - Present on Arrival Any Indicators Present on Arrival: No History of DVT/PE: No History of Uncontrolled Diabetes: No Urinary Catheter: No History of Decub. Ulcer: No History Surgical Site Infection Following: None - Disposition Have Diagnosis and Disposition been Completed?: Yes Diagnosis: Migraine, Paresthesia Disposition: HOME/ ROUTINE Disposition Time: 16:30 Patient Plan: Discharge Patient Problems: Current Active Problems Problem Status Onset Migraine Acute Paresthesia Acute Condition: FAIR Discharge Instructions (ExitCare): Migraine Headache (DC) Additional Instructions: DAYO CORONEL, thank you for letting us take care of you today. Your provider was Sherrie Ponce MD and you were treated for migraine. The emergency medical care you received today was directed at your acute symptoms. If you were prescribed any medication, please fill it and take as directed. It may take several days for your symptoms to resolve. Return to the Emergency Department if your symptoms worsen, do not improve, or if you have any other problems. Please contact your doctor or call one of the physicians/clinics you have been referred to that are listed on the Patient Visit Information form that is included in your discharge packet. Bring any paperwork you were given at discharge with you along with any medications you are taking to your follow up visit. Our treatment cannot replace ongoing medical care by a primary care provider outside of the emergency department. Thank you for allowing the [facility] team to be part of your care today. If you had an X-Ray or CT scan: A Radiologist will review the ED reading if any change in treatment is needed we will contact you. If you had a blood, urine, or wound culture: It will take several days for the results, if any change in treatment is needed we will contact you. If you had an STI test: It will take 48 hours for the results. Please call after 1 week if you have not heard back. Prescriptions: Acetaminophen/Butalbital/Caf [Fioricet] 1 tab PO Q6H PRN #10 tab PRN Reason: Migraine Headache Forms: [employer] (Arabic), WORK NOTE
[2018-04-26] MEDS: DiphenhydrAMINE 50 mg/ml Inj IVP STA (14:07)
[2018-04-26] MEDS: Sodium Chloride 0.9% 1,000 ML IV STA (14:13)
[2018-04-26 14:39] LABS: BASO # 0.04 K/mm3 (0.0-2.0); BASO % 0.4 % (0.0-3.0); EOS # 0.2 (0.0-0.7); GRAN # 5.83 (1.4-6.5); GRAN % 55.7 % (50.0-68.0); HEMOGLOBIN 14.2 g/dL (12.0-16.0); LYMPH # 4.1 (1.2-3.4); LYMPH % 39.3 % (22.0-35.0); MEAN CELL VOLUME 97.9 fl (80.0-105.0); MEAN CORPUSCULAR HEMOGLOBIN 32.6 pg (25.0-35.0); MEAN CORPUSCULAR HGB CONC 33.3 g/dl (31.0-37.0); MONO # 0.3 (0.1-0.6); MONO % 2.6 % (1.0-6.0); RBC 4.35 10^6/uL (3.5-6.1); RED CELL DISTRIBUTION WIDTH 13.7 % (11.5-14.5); WHITE BLOOD COUNT 10.5 10^3/ul (4.5-11.0)
[2018-04-26 14:48] LABS: ALB/GLOB RATIO 1.3 (1.1-1.8); ALBUMIN 4.1 g/dL (3.0-4.8); CALCIUM 8.7 mg/dL (8.4-10.5); GFR AFRICAN-AMERICAN > 60; GFR NON-AFRICAN AMERICAN > 60
[2018-04-26 15:08] LABS: ALT/SGPT 17 U/L (7-56); AST/SGOT 27 U/L (14-36); BLOOD UREA NITROGEN 7 mg/dL (7-21); TROPONIN I < 0.01 ng/mL
[2018-04-26 15:24] VITALS: RESP 18
--- NOTE | 2018-04-26 16:36 | CARD ---
APPROVED REPORT EKG Measurement Heart [id number] <Conclusion> Normal sinus rhythm Normal ECG
[2018-04-26 16:37] VITALS: BP 162/79; PULSE 64; TEMP 98
[2018-04-26] MEDS: Dexamethasone 4 mg/1 ml IVP STA (17:09)
[2018-04-26] MEDS: Magnesium Sulfate 1 gm in D5W 1 GM/100 ML BAG IVPB STA (17:09)
== END 2018-04-26 17:13 | disposition home or self-care (01) ==
LOC: ED 13:13
DX: G43.909 Migraine, unspecified, not intractable, without status migrainosus (principal); R20.2 Paresthesia of skin; I10 Essential (primary) hypertension; Z95.5 Presence of coronary angioplasty implant and graft; F17.210 Nicotine dependence, cigarettes, uncomplicated
CPT/HCPCS: 80053; 82948; 84484; 85025; 93005; 96374; 96375; 99285; J1200; J1885; J2765; J7030

== ENCOUNTER 2019-02-27 14:04 | Inpatient (IN) | payer BC ==
[2019-02-27 14:10] VITALS: BMI 39.8
--- NOTE | 2019-02-27 14:36 | ED PDOC ---
Arrival/HPI - General Chief Complaint: Chest Pain Time Seen by Provider: 02/27/19 14:12 Historian: Patient - History of Present Illness Time/Duration: < week Symptom Onset: Sudden Symptom Course: Unchanged Quality: Pressure Past Medical History - Infectious Disease Hx of Infectious Diseases: None - Cardiac Hx Cardiac Disorders: Yes Hx Hypertension: Yes Other/Comment: stent x1 2013 - Pulmonary Hx Respiratory Disorders: No - Neurological Hx Neurological Disorder: No - HEENT Hx HEENT Disorder: No - Renal Hx Renal Disorder: No - Endocrine/Metabolic Hx Endocrine Disorders: No - Hematological/Oncological Hx Blood Disorders: No - Integumentary Hx Dermatological Disorder: No - Musculoskeletal/Rheumatological Hx Musculoskeletal Disorders: No - Gastrointestinal Hx Gastrointestinal Disorders: Yes Hx Diverticulitis: Yes Hx Irritable Bowel: Yes - Genitourinary/Gynecological Hx Genitourinary Disorders: No - Psychiatric Hx Psychophysiologic Disorder: No Hx Substance Use: No - Surgical History Hx Appendectomy: Yes Hx Cardiac Catheterization: Yes Hx Section: Yes (x2) Hx Tubal Ligation: Yes Other/Comment: left ovary/fallopian tube removal - Anesthesia Hx Anesthesia Reactions: No Family/Social History Smoking Status: Heavy Smoker > 10 Cigarettes Daily Hx Alcohol Use: Yes Hx Substance Use: No Allergies/Home Meds Allergies/Adverse Reactions: Allergies Sulfa (Sulfonamide Antibiotics) Adverse Reaction (Verified 04/26/18 13:36) RASH Home Medications: Home Meds Medication Instructions Recorded Confirmed ALPRAZolam [Xanax] 0.25 mg PO DAILY PRN 04/19/16 12/24/17 Medical Decision Making - RAD Interpretation Radiology Orders: 02/27/19 14:33 CHEST PORTABLE [RAD] Stat - Medication Orders Current Medication Orders: Discontinued Medications Nitroglycerin (Nitrostat Sl Tab) 0.3 mg SL STAT STA Stop: 02/27/19 14:32 Disposition/Present on Arrival - Present on Arrival History of DVT/PE: No History of Uncontrolled Diabetes: No Urinary Catheter: No History Surgical Site Infection Following: None - Disposition Forms: [employer] (Yemeni)
--- NOTE | 2019-02-27 14:42 | ED PDOC ---
Arrival/HPI - General Historian: Patient - History of Present Illness Narrative History of Present Illness (Text): Patient is a 47 year old female with a past medical history of HTN, CAD s/p 1 stent, obesity, tobacco use, diverticulitis and fibromyalgia presenting with chest pain and associated shortness of breath which first began . Pain is substernal, described as a crushing sensation, with radiation down both arms. Admits to shortness of breath. 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 Patient had stress test six months prior which was unremarkable. Denies fevers, chills, nausea, vomiting, abdominal pain, diarrhea, dysuria. Time/Duration: < week Symptom Onset: Sudden Symptom Course: Unchanged Quality: Pressure <Yu Chery - Last Filed: 02/27/19 19:24> <Moises Max - Last Filed: 02/28/19 13:17> - General Chief Complaint: Chest Pain Time Seen by Provider: 02/27/19 14:12 Past Medical History - Provider Review Nursing Documentation Reviewed: Yes - Infectious Disease Hx of Infectious Diseases: None - Cardiac Hx Cardiac Disorders: Yes Hx Hypertension: Yes Other/Comment: stent x1 2013 - Pulmonary Hx Respiratory Disorders: No - Neurological Hx Neurological Disorder: No - HEENT Hx HEENT Disorder: No - Renal Hx Renal Disorder: No - Endocrine/Metabolic Hx Endocrine Disorders: No - Hematological/Oncological Hx Blood Disorders: No - Integumentary Hx Dermatological Disorder: No - Musculoskeletal/Rheumatological Hx Musculoskeletal Disorders: No - Gastrointestinal Hx Gastrointestinal Disorders: Yes Hx Diverticulitis: Yes Hx Irritable Bowel: Yes - Genitourinary/Gynecological Hx Genitourinary Disorders: No - Psychiatric Hx Psychophysiologic Disorder: No Hx Substance Use: No - Surgical History Hx Appendectomy: Yes Hx Cardiac Catheterization: Yes Hx Section: Yes (x2) Hx Tubal Ligation: Yes Other/Comment: left ovary/fallopian tube removal - Anesthesia Hx Anesthesia Reactions: No <Yu Chery - Last Filed: 02/27/19 19:24> Family/Social History - Physician Review Nursing Documentation Reviewed: Yes Family/Social History: No Known Family HX Smoking Status: Heavy Smoker > 10 Cigarettes Daily Hx Alcohol Use: Yes Hx Substance Use: No <Yu Chery - Last Filed: 02/27/19 19:24> Allergies/Home Meds <Yu Chery - Last Filed: 02/27/19 19:24> <Moises Max - Last Filed: 02/28/19 13:17> Allergies/Adverse Reactions: Allergies Sulfa (Sulfonamide Antibiotics) Adverse Reaction (Verified 04/26/18 13:36) RASH Home Medications: Home Meds Medication Instructions Recorded Confirmed ALPRAZolam [Xanax] 0.25 mg PO DAILY PRN 04/19/16 12/24/17 Review of Systems - Physician Review All systems were reviewed & negative as marked: Yes - Review of Systems Respiratory: SOB Cardiovascular: Chest Pain Gastrointestinal: Normal Neurological: Normal <Yu Chery - Last Filed: 02/27/19 19:24> Physical Exam Vital Signs Reviewed: Yes Temperature: Afebrile Blood Pressure: Normal Pulse: Regular Respiratory Rate: Normal Appearance: Positive for: Well-Appearing Pain Distress: None Mental Status: Positive for: Alert and Oriented X 3 - Systems Exam Head: Present: Atraumatic, Normocephalic Pupils: Present: PERRL Extroacular Muscles: Present: EOMI Conjunctiva: Present: Normal Mouth: Present: Moist Mucous Membranes Respiratory/Chest: Present: Clear to Auscultation, Good Air Exchange, Tender to Palpation. No: Respiratory Distress, Accessory Muscle Use Cardiovascular: Present: Regular Rate and Rhythm, Normal S1, S2. No: Murmurs, Tachycardic Abdomen: Present: Normal Bowel Sounds. No: Tenderness, Distention, Rebound, Guarding Lower Extremity: Present: Normal Inspection. No: Edema Neurological: Present: GCS=15, CN II-XII Intact, Speech Normal Skin: Present: Warm, Dry, Normal Color Psychiatric: Present: Alert, Oriented x 3 <Yu Chery - Last Filed: 02/27/19 19:24> Medical Decision Making ED Course and Treatment: Impression: 48 year old female with chest pain Plan: - CBC, CMP - EKG - CXR - UA - Nitroglycerin - Reassess and disposition Prior Visits: Notes and results from previous visits were reviewed. Progress Notes: Labs and imaging reviewed. Elevated troponin noted. Spoke with Dr. Jones regarding patient status and current menstruation. Aspirin, plavix, heparin bolus then drip to be administered as per Dr. Jones's recommendations. Patient to be admitted to hospitalist service. Spoke with Dr. iKm who accepts patient. Patient is in agreement with plan of management. - Lab Interpretations I have reviewed the lab results: Yes - RAD Interpretation Radiology Orders: 02/27/19 14:33 CHEST PORTABLE [RAD] Stat - EKG Interpretation Interpreted by ED Physician: Yes Type: 12 lead EKG - Medication Orders Current Medication Orders: Discontinued Medications Nitroglycerin (Nitrostat Sl Tab) 0.3 mg SL STAT STA Stop: 02/27/19 14:32 <Yu Chery - Last Filed: 02/27/19 19:24> ED Course and Treatment: 02/27/19 15:02 A 48 year old female presents to the ED with a complaint of chest pain and shortness of breath. In agreement with resident note, which includes further HPI details. Patient was seen and evaluated with resident, came up with plan and treatment together. - RAD Interpretation Radiology Orders: 02/27/19 14:33 CHEST PORTABLE [RAD] Stat - Medication Orders Current Medication Orders: Discontinued Medications Aspirin (Aspirin Chewable) 324 mg PO STAT STA Stop: 02/27/19 15:00 Nitroglycerin (Nitrostat Sl Tab) 0.3 mg SL STAT STA Stop: 02/27/19 14:32 Last Admin: 02/27/19 14:51 Dose: 0.3 mg <Moises Max - Last Filed: 02/28/19 13:17> - PA / HOUSE REPAIRER / Resident Statement MD/ has reviewed & agrees with the documentation as recorded. MD/DO has examined the patient and agrees with the treatment plan. (48 yr old female w/ hx of CAD w/ stent p/w chest pain. EKG w/ out stemi. Pt in NAD, given ASA after pt was noted not have a widened mediastinium on XR. No tearing back pain noted per pt. Troponin elevated, endorsed to Dr. Allen who reccomended plavix, asa and heparin. Endorsed to Dr. Rolon pts current period and c urrent H&H and he reccomended heparin. Pt otherwise denies any trauma / fall or dark or bloody stool. Abd non-ttp on my exam and no signs of trauma on exam. Pt was then admitted to Dr. June service in [facility] for NSTEMI.) - Scribe Statement The provider has reviewed the documentation as recorded by the Scribe Gayle Chaney Provider Silvestre Attestation: All medical record entries made by the Sergioibamanda were at my direction and personally dictated by me. I have reviewed the chart and agree that the record accurately reflects my personal performance of the history, physical exam, medical decision making, and the department course for this patient. I have also personally directed, reviewed, and agree with the discharge instructions and disposition. <Moises Max - Last Filed: 02/28/19 13:17> Disposition/Present on Arrival - Present on Arrival Any Indicators Present on Arrival: No History of DVT/PE: No History of Uncontrolled Diabetes: No Urinary Catheter: No History of Decub. Ulcer: No History Surgical Site Infection Following: None - Disposition Have Diagnosis and Disposition been Completed?: Yes Disposition Time: 16:31 <Yu Chery - Last Filed: 02/27/19 19:24> <Moises Max - Last Filed: 02/28/19 13:17> - Disposition Diagnosis: Chest pain Disposition: HOSPITALIZED Patient Problems: Current Active Problems Problem Status Onset Chest pain Acute Condition: STABLE
[2019-02-27 14:56] LABS: BASO # 0.04 K/mm3 (0.0-2.0); BASO % 0.4 % (0.0-3.0); EOS # 0.3 (0.0-0.7); HEMOGLOBIN 14.6 g/dL (12.0-16.0); LYMPH # 4.2 (1.2-3.4); MEAN CELL VOLUME 101.2 fl (80.0-105.0); MEAN CORPUSCULAR HEMOGLOBIN 33.8 pg (25.0-35.0); MEAN CORPUSCULAR HGB CONC 33.4 g/dl (31.0-37.0); MEAN PLATELET VOLUME 10.5 fl (7.0-11.0); MONO # 0.4 (0.1-0.6); MONO % 4.1 % (1.0-6.0); RBC 4.32 10^6/uL (3.5-6.1); RED CELL DISTRIBUTION WIDTH 12.8 % (11.5-14.5); WHITE BLOOD COUNT 9.5 10^3/uL (4.5-11.0)
--- NOTE | 2019-02-27 15:03 | RAD ---
Date of service: 02/27/2019 HISTORY: chest pain COMPARISON: 12/24/2017. FINDINGS: LUNGS: The lungs are well inflated and clear. PLEURA: No pleural effusions or pneumothorax. CARDIOVASCULAR: The heart is normal in size. No aortic atherosclerotic calcifications present. OSSEOUS STRUCTURES: Within normal limits for the patient's age. VISUALIZED UPPER ABDOMEN: Normal. OTHER FINDINGS: None. IMPRESSION: No active pulmonary disease.
[2019-02-27 15:13] LABS: ALB/GLOB RATIO 1.3 (1.1-1.8); BLOOD UREA NITROGEN 8 mg/dL (7-21); GFR NON-AFRICAN AMERICAN > 60
[2019-02-27 15:14] LABS: ALT/SGPT 9 U/L (7-56); AST/SGOT 39 U/L (14-36)
[2019-02-27 15:49] LABS: TROPONIN I 0.51 ng/mL
[2019-02-27 16:23] LABS: URINE APPEARANCE CLEAR (CLEAR); URINE BILIRUBIN NEGATIVE (NEGATIVE); URINE BLOOD LARGE (NEGATIVE); URINE COLOR YELLOW (YELLOW); URINE GLUCOSE (UA) NEGATIVE (NEGATIVE); URINE LEUKOCYTE ESTERASE NEGATIVE Leu/uL (NEGATIVE); URINE PROTEIN TRACE mg/dL (<30 mg/dL); URINE UROBILINOGEN 0.2 E.U./dL (<1 E.U./dL)
[2019-02-27 16:26] LABS: URINE BACTERIA FEW /hpf
--- NOTE | 2019-02-27 17:33 | CP.PCM.HP ---
<Jonathan Wilhelm - Last Filed: 02/27/19 17:49> History of Present Illness - History of Present Illness History of Present Illness: CC: Chest pain 48-year-old female with past medical history of CAD with 1 stent placement 7 years ago, hypertension, migraine, obesity, fibromyalgia, and active smoker presents with chest pain and shortness of breath. Patient states that her chest pain started 5 days ago and has gotten progressively worse. She locates the pain to be in the midsternal radiating to her hands bilaterally. 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 However today chest pain has gotten progressively worse accompanied with shortness of breath that is worse with exertion. Patient denies any headache, dizziness, fever, chills, palpitations, abdominal pain, nausea, vomiting, diarrhea, urinary changes. Of note: Patient has been noncompliant with her aspirin, as she states it makes her ears ring. She does admit to being on aspirin and Plavix for 2-1/2 years following her stent placement. Also patient had a stress test done in August 2018 which was reportedly normal. PMH: As above PSH: x2, shoulder surgery x8, left oophorectomy, D&C Allergies: Sulfa Medications: Topamax 75 mg twice daily, losartan 25 mg twice daily, Lipitor 10 mg daily, Fioricet as needed, Xanax 0.25 as needed. Patient also takes Aimovig monthly for headaches FH: Mother with kidney disease, heart disease, and hypertension, she passed at 53. Patient's father passed from lung cancer at 59. Patient does have a grandfather the past in his 50s, and uncles the past 1 at age 32 and the other at 48 SH: Patient is currently an active smoker of 1 pack/day x20 plus years. She denies any drinking or drugs. 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 Pharmacy: [facility] in [place] Present on Admission - Present on Admission Any Indicators Present on Admission: No Review of Systems - Review of Systems All systems: reviewed and no additional remarkable complaints except Past Patient History - Infectious Disease Hx of Infectious Diseases: None - Past Medical History & Family History Past Medical History?: Yes - Past Social History Smoking Status: Heavy Smoker > 10 Cigarettes Daily - CARDIAC Hx Cardiac Disorders: Yes Hx Hypertension: Yes Other/Comment: stent x1 2013 - PULMONARY Hx Respiratory Disorders: No - NEUROLOGICAL Hx Neurological Disorder: No - HEENT Hx HEENT Problems: No - RENAL Hx Chronic Kidney Disease: No - ENDOCRINE/METABOLIC Hx Endocrine Disorders: No - HEMATOLOGICAL/ONCOLOGICAL Hx Blood Disorders: No - INTEGUMENTARY Hx Dermatological Problems: No - MUSCULOSKELETAL/RHEUMATOLOGICAL Hx Musculoskeletal Disorders: No - GASTROINTESTINAL Hx Gastrointestinal Disorders: Yes Hx Diverticulitis: Yes Hx Irritable Bowel: Yes - GENITOURINARY/GYNECOLOGICAL Hx Genitourinary Disorders: No - PSYCHIATRIC Hx Psychophysiologic Disorder: No Hx Substance Use: No - SURGICAL HISTORY Hx Appendectomy: Yes Hx Cardiac Catheterization: Yes Hx Section: Yes (x2) Hx Tubal Ligation: Yes Other/Comment: left ovary/fallopian tube removal - ANESTHESIA Hx Anesthesia Reactions: No Meds Allergies/Adverse Reactions: Allergies Allergy/AdvReac Type Severity Reaction Status Date / Time Sulfa (Sulfonamide AdvReac RASH Verified 04/26/18 13:36 Antibiotics) Physical Exam - Constitutional Appears: No Acute Distress - Head Exam Head Exam: ATRAUMATIC, NORMOCEPHALIC - Eye Exam Eye Exam: EOMI, PERRL Pupil Exam: NORMAL ACCOMODATION - ENT Exam ENT Exam: Mucous Membranes Moist - Respiratory Exam Respiratory Exam: Clear to Auscultation Bilateral. absent: Wheezes - Cardiovascular Exam Cardiovascular Exam: REGULAR RHYTHM, RRR, +S1, +S2 - GI/Abdominal Exam GI & Abdominal Exam: Normal Bowel Sounds, Soft. absent: Tenderness - Extremities Exam Extremities exam: Negative for: calf tenderness, pedal edema - Neurological Exam Neurological exam: Alert, CN II-XII Intact, Oriented x3 - Psychiatric Exam Psychiatric exam: Normal Mood - Skin Skin Exam: Dry, Warm Results - Vital Signs Recent Vital Signs: Last Vital Signs Temp 98.2 F 02/27/19 14:25 Pulse 61 02/27/19 16:05 Resp 18 02/27/19 16:05 BP 119/74 02/27/19 16:05 Pulse Ox 96 02/27/19 16:05 - Labs Result Diagrams: 02/27/19 14:50 02/27/19 14:50 Labs: Laboratory Results - last 24 hr 02/27/19 02/27/19 02/27/19 14:50 14:50 16:00 WBC 9.5 RBC 4.32 Hgb 14.6 Hct 43.7 MCV 101.2 D MCH 33.8 MCHC 33.4 RDW 12.8 Plt Count 307 MPV 10.5 Neut % (Auto) 48.5 L Lymph % (Auto) 44.0 H Phelps % (Auto) 4.1 Eos % (Auto) 3.0 Baso % (Auto) 0.4 Lymph # (Auto) 4.2 H Phelps # (Auto) 0.4 Eos # (Auto) 0.3 Baso # (Auto) 0.04 Absolute Neuts (auto) 4.62 APTT 36.7 Sodium 140 Potassium 4.1 Chloride 110 H Carbon Dioxide 24 Anion Gap 10 BUN 8 Creatinine 0.6 L Est GFR ( Amer) > 60 Est GFR (Non-Af Amer) > 60 Random Glucose 93 Calcium 9.0 Phosphorus 3.9 Magnesium 2.0 Total Bilirubin 0.4 AST 39 H D ALT 9 Alkaline Phosphatase 80 Lactate Dehydrogenase 548 Total Creatine Kinase 52 Troponin I 0.51 H* D Total Protein 7.3 Albumin 4.0 Globulin 3.2 Albumin/Globulin Ratio 1.3 Urine Color Urine Appearance Urine pH Ur Specific [place] Urine Protein Urine Glucose (UA) Urine Ketones Urine Blood Urine Nitrate Urine Bilirubin Urine Urobilinogen Ur Leukocyte Esterase Urine RBC Urine WBC Ur Epithelial Cells Urine Bacteria 02/27/19 16:20 WBC RBC Hgb Hct MCV MCH MCHC RDW Plt Count MPV Neut % (Auto) Lymph % (Auto) Phelps % (Auto) Eos % (Auto) Baso % (Auto) Lymph # (Auto) Phelps # (Auto) Eos # (Auto) Baso # (Auto) Absolute Neuts (auto) APTT Sodium Potassium Chloride Carbon Dioxide Anion Gap BUN Creatinine Est GFR ( Amer) Est GFR (Non-Af Amer) Random Glucose Calcium Phosphorus Magnesium Total Bilirubin AST ALT Alkaline Phosphatase Lactate Dehydrogenase Total Creatine Kinase Troponin I Total Protein Albumin Globulin Albumin/Globulin Ratio Urine Color Yellow Urine Appearance Clear Urine pH 6.0 Ur Specific [place] 1.025 Urine Protein Trace H Urine Glucose (UA) Negative Urine Ketones Negative Urine Blood Large H Urine Nitrate Negative Urine Bilirubin Negative Urine Urobilinogen 0.2 Ur Leukocyte Esterase Negative Urine RBC 5 - 10 H Urine WBC None Ur Epithelial Cells 10 - 12 H Urine Bacteria Few Assessment & Plan - Assessment and Plan (Free Text) Assessment: 1. NSTEMI 2. Coronary artery disease with 1 stent placement, 7 years ago 3. Migraines 4. Hypertension 5. Hyperlipidemia 6. Active smoker 7. Hematuria Patient was found to have an elevated troponin of 0.51. EKG showed heart rate 69, NSR, LVH, inferior and anterior infarct age indeterminate. Cardiology has been consulted and patient was given aspirin, loading dose of Plavix, and was started on heparin drip. Cardiology was consulted and will appreciate recommendations. Echo has been ordered as well. We will follow-up serial troponins. CXR was neg. For her history of coronary artery disease cont aspirin and plavix. Patient may benefit from a beta-tamara, will follow-up cardiology recommendations. For her migraines will continue with Fioricet as needed and Topamax. For her hypertension continue with losartan 50 mg daily. For her hyperlipidemia we will resume Lipitor 10 mg daily. Patient was counseled on cessation of smoking. For her hematuria, patient is currently on her period. We will follow-up with daily labs. Continue with Pepcid for GI prophylaxis, patient is on heparin drip for DVT prophylaxis. Case and plan was seen, reviewed, and discussed with Dr. Kim <Brandi Kim - Last Filed: 02/28/19 13:49> Results - Vital Signs Recent Vital Signs: Last Vital Signs Temp 98 F 02/28/19 12:00 Pulse 56 L 02/28/19 12:00 Resp 20 02/28/19 12:00 BP 157/82 H 02/28/19 12:00 Pulse Ox 97 02/28/19 00:01 - Labs Result Diagrams: 02/28/19 06:10 02/28/19 06:15 Labs: Laboratory Results - last 24 hr 02/27/19 02/27/19 02/27/19 14:45 14:45 14:50 WBC 9.5 RBC 4.32 Hgb 14.6 Hct 43.7 MCV 101.2 D MCH 33.8 MCHC 33.4 RDW 12.8 Plt Count 307 MPV 10.5 Neut % (Auto) 48.5 L Lymph % (Auto) 44.0 H Phelps % (Auto) 4.1 Eos % (Auto) 3.0 Baso % (Auto) 0.4 Lymph # (Auto) 4.2 H Phelps # (Auto) 0.4 Eos # (Auto) 0.3 Baso # (Auto) 0.04 Absolute Neuts (auto) 4.62 PT INR APTT Sodium Potassium Chloride Carbon Dioxide Anion Gap BUN Creatinine Est GFR ( Amer) Est GFR (Non-Af Amer) Random Glucose Hemoglobin A1c 5.4 Calcium Phosphorus Magnesium Total Bilirubin AST ALT Alkaline Phosphatase Lactate Dehydrogenase Total Creatine Kinase Troponin I Total Protein Albumin Globulin Albumin/Globulin Ratio Triglycerides 224 H Cholesterol 230 H LDL Cholesterol Direct 169 H HDL Cholesterol 37 Urine Color Urine Appearance Urine pH Ur Specific [place] Urine Protein Urine Glucose (UA) Urine Ketones Urine Blood Urine Nitrate Urine Bilirubin Urine Urobilinogen Ur Leukocyte Esterase Urine RBC Urine WBC Ur Epithelial Cells Urine Bacteria Urine HCG, Qual 02/27/19 02/27/19 02/27/19 14:50 16:00 16:00 WBC RBC Hgb Hct MCV MCH MCHC RDW Plt Count MPV Neut % (Auto) Lymph % (Auto) Phelps % (Auto) Eos % (Auto) Baso % (Auto) Lymph # (Auto) Phelps # (Auto) Eos # (Auto) Baso # (Auto) Absolute Neuts (auto) PT 11.2 INR 1.01 APTT 36.7 Sodium 140 Potassium 4.1 Chloride 110 H Carbon Dioxide 24 Anion Gap 10 BUN 8 Creatinine 0.6 L Est GFR ( Amer) > 60 Est GFR (Non-Af Amer) > 60 Random Glucose 93 Hemoglobin A1c Calcium 9.0 Phosphorus 3.9 Magnesium 2.0 Total Bilirubin 0.4 AST 39 H D ALT 9 Alkaline Phosphatase 80 Lactate Dehydrogenase 548 Total Creatine Kinase 52 Troponin I 0.51 H* D Total Protein 7.3 Albumin 4.0 Globulin 3.2 Albumin/Globulin Ratio 1.3 Triglycerides Cholesterol LDL Cholesterol Direct HDL Cholesterol Urine Color Urine Appearance Urine pH Ur Specific [place] Urine Protein Urine Glucose (UA) Urine Ketones Urine Blood Urine Nitrate Urine Bilirubin Urine Urobilinogen Ur Leukocyte Esterase Urine RBC Urine WBC Ur Epithelial Cells Urine Bacteria Urine HCG, Qual 02/27/19 02/27/19 02/27/19 16:20 20:55 21:11 WBC RBC Hgb Hct MCV MCH MCHC RDW Plt Count MPV Neut % (Auto) Lymph % (Auto) Phelps % (Auto) Eos % (Auto) Baso % (Auto) Lymph # (Auto) Phelps # (Auto) Eos # (Auto) Baso # (Auto) Absolute Neuts (auto) PT INR APTT Sodium Potassium Chloride Carbon Dioxide Anion Gap BUN Creatinine Est GFR ( Amer) Est GFR (Non-Af Amer) Random Glucose Hemoglobin A1c Calcium Phosphorus Magnesium Total Bilirubin AST ALT Alkaline Phosphatase Lactate Dehydrogenase Total Creatine Kinase Troponin I 0.88 H* D Total Protein Albumin Globulin Albumin/Globulin Ratio Triglycerides Cholesterol LDL Cholesterol Direct HDL Cholesterol Urine Color Yellow Urine Appearance Clear Urine pH 6.0 Ur Specific [place] 1.025 Urine Protein Trace H Urine Glucose (UA) Negative Urine Ketones Negative Urine Blood Large H Urine Nitrate Negative Urine Bilirubin Negative Urine Urobilinogen 0.2 Ur Leukocyte Esterase Negative Urine RBC 5 - 10 H Urine WBC None Ur Epithelial Cells 10 - 12 H Urine Bacteria Few Urine HCG, Qual Negative 02/28/19 02/28/19 02/28/19 00:30 06:10 06:15 WBC 7.6 RBC 4.01 Hgb 13.2 Hct 40.7 MCV 101.5 MCH 32.9 MCHC 32.4 RDW 12.8 Plt Count 256 MPV 10.4 Neut % (Auto) 39.3 L Lymph % (Auto) 51.8 H Phelps % (Auto) 4.7 Eos % (Auto) 3.7 Baso % (Auto) 0.5 Lymph # (Auto) 3.9 H Phelps # (Auto) 0.4 Eos # (Auto) 0.3 Baso # (Auto) 0.04 Absolute Neuts (auto) 2.99 PT INR APTT 70.4 H Sodium 141 Potassium 4.1 Chloride 111 H Carbon Dioxide 25 Anion Gap 9 L BUN 11 Creatinine 0.6 L Est GFR ( Amer) > 60 Est GFR (Non-Af Amer) > 60 Random Glucose 91 Hemoglobin A1c Calcium 8.6 Phosphorus Magnesium Total Bilirubin 0.3 AST 36 ALT 18 Alkaline Phosphatase 74 Lactate Dehydrogenase Total Creatine Kinase Troponin I 0.95 H* Total Protein 6.3 Albumin 3.5 Globulin 2.8 Albumin/Globulin Ratio 1.3 Triglycerides Cholesterol LDL Cholesterol Direct HDL Cholesterol Urine Color Urine Appearance Urine pH Ur Specific [place] Urine Protein Urine Glucose (UA) Urine Ketones Urine Blood Urine Nitrate Urine Bilirubin Urine Urobilinogen Ur Leukocyte Esterase Urine RBC Urine WBC Ur Epithelial Cells Urine Bacteria Urine HCG, Qual 02/28/19 06:15 WBC RBC Hgb Hct MCV MCH MCHC RDW Plt Count MPV Neut % (Auto) Lymph % (Auto) Phelps % (Auto) Eos % (Auto) Baso % (Auto) Lymph # (Auto) Phelps # (Auto) Eos # (Auto) Baso # (Auto) Absolute Neuts (auto) PT INR APTT 52.1 H Sodium Potassium Chloride Carbon Dioxide Anion Gap BUN Creatinine Est GFR ( Amer) Est GFR (Non-Af Amer) Random Glucose Hemoglobin A1c Calcium Phosphorus Magnesium Total Bilirubin AST ALT Alkaline Phosphatase Lactate Dehydrogenase Total Creatine Kinase Troponin I Total Protein Albumin Globulin Albumin/Globulin Ratio Triglycerides Cholesterol LDL Cholesterol Direct HDL Cholesterol Urine Color Urine Appearance Urine pH Ur Specific [place] Urine Protein Urine Glucose (UA) Urine Ketones Urine Blood Urine Nitrate Urine Bilirubin Urine Urobilinogen Ur Leukocyte Esterase Urine RBC Urine WBC Ur Epithelial Cells Urine Bacteria Urine HCG, Qual Attending/Attestation - Attestation I have personally seen and examined this patient.: Yes I have fully participated in the care of the patient.: Yes I have reviewed all pertinent clinical information: Yes Notes (Text): 02/28/19 13:45 Attending note; Patient seen and examined with resident and ER. Patient is alert and awake. Complaining of chest pain on and off. Denies any fevers, chills. Denies any cough or sputum production Denies any abdominal pain, nausea, vomiting. Patient is a 48-year-old female with past medical history of CAD with 1 stent placement 7 years ago, hypertension, migraine, obesity, fibromyalgia, and active smoker presents with chest pain and shortness of breath. 1. Chest pain/non-ST elevation [place]; EKG shows nonspecific ST-T changes. Started on aspirin, Plavix and heparin drip. Patient with a previous history of coronary stent in the past. Trend troponin. case discussed with highway technician detail. 2. Hypertension; continue Cozaar . We will add beta-tamara. 3. Migraine; Continue Topamax. Fioricet as needed ordered. 4. hypercholesterolemia continue Lipitor. Admit patient to telemetry and monitor closely. Will follow up with cardiology for further plan.
[2019-02-27 17:44] LABS: INR 1.01; PROTHROMBIN TIME 11.2 SECONDS (9.4-12.5)
[2019-02-27 17:52] LABS: HDL CHOLESTEROL 37 mg/dL (29-60)
[2019-02-27 18:02] LABS: LDL CHOLESTEROL 169 mg/dL (0-129)
[2019-02-27] MEDS: Heparin25000 units/250ml 1/2NS 25,000 UNITS/250 ML BAG IV SCH (18:06)
--- NOTE | 2019-02-27 20:15 | CARD ---
APPROVED REPORT Date of service: 02/27/2019 EKG Measurement Heart [id number] <Conclusion> Normal sinus rhythm Possible Anteroseptal infarct, age undetermined Abnormal ECG
--- NOTE | 2019-02-27 20:28 | CARD ---
APPROVED REPORT Date of service: 02/27/2019 EKG Measurement Heart [id number] [id number] <Conclusion> Normal sinus rhythm Minimal voltage criteria for LVH, may be normal variant Cannot exclude Inferior infarct, age undetermined Anterior infarct, age undetermined Abnormal ECG
[2019-02-27] MEDS ORDERED: Morphine 2 mg/ml ISec IVP STA (21:05)
[2019-02-28] MEDS: Apap-Butalbital-Caffeine 325-50-40mg Tab PO PRN ×3 (05:35→17:24)
[2019-02-28 06:43] LABS: BASO # 0.04 K/mm3 (0.0-2.0); BASO % 0.5 % (0.0-3.0); EOS # 0.3 (0.0-0.7); EOS % 3.7 % (1.5-5.0); HEMOGLOBIN 13.2 g/dL (12.0-16.0); LYMPH # 3.9 (1.2-3.4); LYMPH % 51.8 % (22.0-35.0); MEAN CELL VOLUME 101.5 fl (80.0-105.0); MEAN CORPUSCULAR HEMOGLOBIN 32.9 pg (25.0-35.0); MEAN CORPUSCULAR HGB CONC 32.4 g/dl (31.0-37.0); MEAN PLATELET VOLUME 10.4 fl (7.0-11.0); MONO # 0.4 (0.1-0.6); MONO % 4.7 % (1.0-6.0); RBC 4.01 10^6/uL (3.5-6.1); RED CELL DISTRIBUTION WIDTH 12.8 % (11.5-14.5); WHITE BLOOD COUNT 7.6 10^3/uL (4.5-11.0)
[2019-02-28 07:35] LABS: ALB/GLOB RATIO 1.3 (1.1-1.8); ALBUMIN 3.5 g/dL (3.0-4.8); ALT/SGPT 18 U/L (7-56); AST/SGOT 36 U/L (14-36); BLOOD UREA NITROGEN 11 mg/dL (7-21); CALCIUM 8.6 mg/dL (8.4-10.5); GFR NON-AFRICAN AMERICAN > 60; TROPONIN I 0.95 ng/mL
--- NOTE | 2019-02-28 11:38 | CP.PCM.PN ---
<Val Purcell - Last Filed: 02/28/19 11:35> Subjective - Date & Time of Evaluation Date of Evaluation: 02/28/19 Time of Evaluation: 11:00 - Subjective Subjective: INTERNAL MEDICINE PROGRESS NOTE FOR DR. KATHERIN Purcell PGY1 Pt seen and examined at bedside this am. She reports continued chest tightness and headache. She is tolerating diet. She denies other complaints Objective - Vital Signs/Intake and Output Vital Signs (last 24 hours): Temp Pulse Resp BP Pulse Ox 97.6 F 74 18 166/91 H 97 02/28/19 06:00 02/28/19 06:00 02/28/19 00:01 02/28/19 08:25 02/28/19 00:01 Intake and Output: 02/28/19 02/28/19 06:59 18:59 Intake Total 176 Balance 176 - Medications Medications: Current Medications Acetaminophen/Butalbital/Caffeine (Fioricet) 1 tab PO Q6 PRN PRN Reason: Migraine headache Last Admin: 02/28/19 10:25 Dose: 1 tab Aspirin (Ecotrin) 81 mg PO DAILY [facility] Last Admin: 02/28/19 09:59 Dose: Not Given Atorvastatin Calcium (Lipitor) 40 mg PO DIN [facility] Clopidogrel Bisulfate (Plavix) 75 mg PO DAILY [facility] Last Admin: 02/28/19 10:00 Dose: Not Given Famotidine (Pepcid) 40 mg PO HS [facility] Last Admin: 02/27/19 21:39 Dose: 40 mg Heparin Sodium/Sodium Chloride (Heparin 01591 Units/250ml 1/2 Normal Saline) 25,000 units in 250 mls @ 10 mls/hr IV .Q24H [facility]; Protocol Last Titration: 02/28/19 01:30 Dose: 10 mls/hr Losartan Potassium (Cozaar) 50 mg PO DAILY [facility] Last Admin: 02/28/19 09:59 Dose: Not Given Topiramate (Topamax) 75 mg PO BID [facility]; Protocol Last Admin: 02/28/19 10:00 Dose: 75 mg - Labs Labs: 02/28/19 06:10 02/28/19 06:15 PT 11.2 SECONDS (9.4-12.5) 02/27/19 16:00 INR 1.01 02/27/19 16:00 APTT 52.1 Seconds (26.9-38.3) H 02/28/19 06:15 - Constitutional Appears: No Acute Distress - Head Exam Head Exam: ATRAUMATIC, NORMOCEPHALIC - Eye Exam Eye Exam: EOMI, PERRL Pupil Exam: NORMAL ACCOMODATION - ENT Exam ENT Exam: Mucous Membranes Moist - Respiratory Exam Respiratory Exam: Clear to Auscultation Bilateral. absent: Wheezes - Cardiovascular Exam Cardiovascular Exam: REGULAR RHYTHM, RRR, +S1, +S2 - GI/Abdominal Exam GI & Abdominal Exam: Normal Bowel Sounds, Soft. absent: Tenderness - Extremities Exam Extremities exam: Negative for: calf tenderness, pedal edema - Neurological Exam Neurological exam: Alert, CN II-XII Intact, Oriented x3 - Psychiatric Exam Psychiatric exam: Normal Mood - Skin Skin Exam: Dry, Warm Assessment and Plan - Assessment and Plan (Free Text) Assessment: 48 y/o F with PMH of CAD s/p stent 7 years ago, HTN migraine, obesity, fibromyalgia, and active smoker admitted for acute coronary syndrome, found to have chest pain, ischemic changes on EKG and elevated troponin markers Plan: NSTEMI troponins uptrending Pt currently on heparin drip Pt scheduled for cardiac cath tomorrow am continue ASA will resume diet today. NPO after midnight CAD s/p stent continue ASA, plavix, statin start b-tamara, coreg HTN continue losartan HLD continue atorvastatin Tobacco Use disorder counselled on cessation pt doesnt not request nicotine patch Hematuria pt currently on menstrual period DVT/GI: Hep/pepcid Case reviewed with attending physician, Dr. Katherin Purcell PGY1 <Brandi Kim - Last Filed: 02/28/19 13:50> Objective - Vital Signs/Intake and Output Vital Signs (last 24 hours): Temp Pulse Resp BP Pulse Ox 98 F 56 L 20 157/82 H 97 02/28/19 12:00 02/28/19 12:00 02/28/19 12:00 02/28/19 12:00 02/28/19 00:01 Intake and Output: 02/28/19 02/28/19 06:59 18:59 Intake Total 176 Balance 176 - Medications Medications: Current Medications Acetaminophen/Butalbital/Caffeine (Fioricet) 1 tab PO Q6 PRN PRN Reason: Migraine headache Last Admin: 02/28/19 10:25 Dose: 1 tab Aspirin (Ecotrin) 81 mg PO DAILY [facility] Last Admin: 02/28/19 09:59 Dose: Not Given Atorvastatin Calcium (Lipitor) 40 mg PO DIN [facility] Carvedilol (Coreg) 3.125 mg PO 0800,1800 [facility] Clopidogrel Bisulfate (Plavix) 75 mg PO DAILY [facility] Last Admin: 02/28/19 10:00 Dose: Not Given Famotidine (Pepcid) 40 mg PO HS [facility] Last Admin: 02/27/19 21:39 Dose: 40 mg Heparin Sodium/Sodium Chloride (Heparin 90148 Units/250ml 1/2 Normal Saline) 25,000 units in 250 mls @ 10 mls/hr IV .Q24H [facility]; Protocol Last Titration: 02/28/19 01:30 Dose: 10 mls/hr Losartan Potassium (Cozaar) 50 mg PO DAILY [facility] Last Admin: 02/28/19 09:59 Dose: Not Given Topiramate (Topamax) 75 mg PO BID [facility]; Protocol Last Admin: 02/28/19 10:00 Dose: 75 mg - Labs Labs: 02/28/19 06:10 02/28/19 06:15 PT 11.2 SECONDS (9.4-12.5) 02/27/19 16:00 INR 1.01 02/27/19 16:00 APTT 52.1 Seconds (26.9-38.3) H 02/28/19 06:15 Attending/Attestation - Attestation I have personally seen and examined this patient.: Yes I have fully participated in the care of the patient.: Yes I have reviewed all pertinent clinical information, including history, physical exam and plan: Yes Notes (Text): 02/28/19 13:49 Attending note; Patient seen and examined with resident. Patient is alert and awake. Complaining of chest pain on and off. Complaining of mild headache. Denies any fevers, chills. Denies any cough or sputum production Denies any abdominal pain, nausea, vomiting. Patient is a 48-year-old female with past medical history of CAD with 1 stent placement 7 years ago, hypertension, migraine, obesity, fibromyalgia, and active smoker presents with chest pain and shortness of breath. 1. Chest pain/non-ST elevation [place]; EKG shows nonspecific ST-T changes. Started on aspirin, Plavix and heparin drip. Patient with a previous history of coronary stent in the past. Trend troponin. case discussed with assistant professor of life sciences detail. Plan for cardiac cath tomorrow. 2. Hypertension; continue Cozaar . We will add beta-tamara. 3. Migraine; Continue Topamax. Fioricet as needed ordered. 4. hypercholesterolemia continue Lipitor. Upon discharge the patient will follow up with PMD Dr. Alvarez. 02/28/19 13:50
[2019-02-28] MEDS: Heparin25000 units/250ml 1/2NS 25,000 UNITS/250 ML BAG IV SCH (17:29)
[2019-02-28] MEDS ORDERED: Morphine 2 mg/ml ISec IVP STA ×2 (18:41)
--- NOTE | 2019-02-28 20:14 | CARD ---
APPROVED REPORT Date of service: 02/27/2019 EKG Measurement Heart [id number] <Conclusion> Normal sinus rhythm Possible Anterior infarct, age undetermined Abnormal ECG
--- NOTE | 2019-02-28 21:02 | CARD ---
APPROVED REPORT Date of service: 02/28/2019 EXAM: Two-dimensional and M-mode echocardiogram with Doppler and color Doppler. INDICATION Chest Pain 2D DIMENSIONS Left Atrium (2D)3.6 (1.6-4.0cm)IVSd1.2 (0.7-1.1cm) LVDd4.5 (3.9-5.9cm)PWd1.3 (0.7-1.1cm) LVDs3.0 (2.5-4.0cm)FS (%) 32.6 % LVEF (%)61.1 (>50%) M-Mode DIMENSIONS Aortic Root2.80 (2.2-3.7cm)Aortic Cusp Exc.1.90 (1.5-2.0cm) Aortic Valve AoV Peak Rltrpmsv749.0cm/Jessie Peak GR.9mmHg Mitral Valve MV E Teatdcmd75.3cm/sMV A Cmphzlkh13.2cm/sE/A ratio1.2 TDI E/Lateral E'0.0E/Medial E'0.0 Tricuspid Valve TR Peak Agdmainc185nm/sRAP [id number] Peak Gr.11mmHg [id number] LEFT VENTRICLE The left ventricle is normal size. There is normal left ventricular wall thickness. The left ventricular ejection fraction is within the normal range. Mild Septal hypokinesis Transmitral Doppler flow pattern is abnormal. RIGHT VENTRICLE The right ventricle is normal size. There is normal right ventricular wall thickness. The right ventricular systolic function is normal. ATRIA The left atrium size is normal. The right atrium size is normal. AORTIC VALVE The aortic valve is not well visualized. No aortic regurgitation is present. There is no aortic valvular stenosis. MITRAL VALVE The mitral valve is normal in structure. There is no mitral valve regurgitation noted. There is no mitral valve stenosis. TRICUSPID VALVE The tricuspid valve is normal in structure. PULMONIC VALVE There is trace pulmonic valvular regurgitation. GREAT VESSELS The aortic root is normal in size. The IVC is normal in size and collapses >50% with inspiration. PERICARDIAL EFFUSION There is no pericardial effusion. <Conclusion> The left ventricle is normal size. There is normal left ventricular wall thickness. The left ventricular ejection fraction is within the normal range. Mild Septal hypokinesis Transmitral Doppler flow pattern is abnormal.
[2019-03-01 06:45] VITALS: PULSE 62; O2SAT 98
[2019-03-01 07:16] LABS: BASO # 0.04 K/mm3 (0.0-2.0); BASO % 0.6 % (0.0-3.0); EOS # 0.2 (0.0-0.7); EOS % 3.8 % (1.5-5.0); HEMOGLOBIN 13.3 g/dL (12.0-16.0); LYMPH # 3.2 (1.2-3.4); LYMPH % 49.9 % (22.0-35.0); MEAN CELL VOLUME 101.7 fl (80.0-105.0); MEAN CORPUSCULAR HEMOGLOBIN 32.5 pg (25.0-35.0); MEAN PLATELET VOLUME 10.2 fl (7.0-11.0); MONO # 0.3 (0.1-0.6); MONO % 5.1 % (1.0-6.0); RBC 4.09 10^6/uL (3.5-6.1); RED CELL DISTRIBUTION WIDTH 12.7 % (11.5-14.5); WHITE BLOOD COUNT 6.3 10^3/uL (4.5-11.0)
[2019-03-01 07:42] LABS: ALB/GLOB RATIO 1.3 (1.1-1.8); ALBUMIN 3.6 g/dL (3.0-4.8); ALT/SGPT 13 U/L (7-56); AST/SGOT 36 U/L (14-36); BLOOD UREA NITROGEN 8 mg/dL (7-21); CALCIUM 8.8 mg/dL (8.4-10.5); GFR NON-AFRICAN AMERICAN > 60
[2019-03-01] MEDS ORDERED: Phenylephrine 10 mg/ml Inj ONE (09:16)
[2019-03-01] MEDS ORDERED: Iohexol 350mgl/ml 50 ML ONE (09:17)
[2019-03-01] MEDS ORDERED: Iodixanol 320 MG/ML 200 ML BOTTLE IV ONE (09:17)
[2019-03-01] MEDS ORDERED: Iodixanol 320 MG/ML 100 ML BOTTLE IV ONE (09:17)
[2019-03-01] MEDS ORDERED: Nitroglycerin 50mg in D5W 0 MG/0 ML BOTTLE IV ONE (09:17)
--- NOTE | 2019-03-01 09:24 | CARD ---
APPROVED REPORT Date of service: 03/01/2019 EKG Measurement Heart [id number] <Conclusion> Sinus bradycardia Otherwise normal ECG
[2019-03-01] MEDS ORDERED: Midazolam 2 MG/2 ML VIAL ONE ×2 (09:38→09:49)
[2019-03-01] MEDS ORDERED: Lidocaine PF 2% (5 ml) Inj (For Cardiac Arrhy) ONE (09:38)
[2019-03-01] MEDS ORDERED: Sodium Chloride 0.9% 1,000 ML IV SCH (10:45)
--- NOTE | 2019-03-01 12:23 | CP.PCM.DIS ---
<Val Purcell - Last Filed: 03/01/19 16:03> Provider - Provider Date of Admission: 02/27/19 16:25 Attending physician: Brandi Kim MD Primary care physician: Brandi Kim MD Consults: 02/27/19 16:29 Cardiology Consult Routine Comment: Consulting Provider: Austen Jones Consulting Physician: Austen Jones Reason for Consult: NSTEMI Time Spent in preparation of Discharge (in minutes): 45 Diagnosis - Discharge Diagnosis (1) Acute coronary syndrome Status: Resolved (2) Coronary artery disease Status: Chronic (3) Hyperlipidemia Status: Chronic (4) Migraine Status: Chronic (5) S/P cardiac catheterization Status: Resolved (6) S/P drug eluting coronary stent placement Status: Resolved (7) Tobacco use disorder Status: Chronic (8) Hypertension Status: Chronic Priority: Medium Hospital Course - Lab Results Lab Results: Most Recent Lab Values WBC 6.3 10^3/uL (4.5-11.0) 03/01/19 07:00 RBC 4.09 10^6/uL (3.5-6.1) 03/01/19 07:00 Hgb 13.3 g/dL (12.0-16.0) 03/01/19 07:00 Hct 41.6 % (36.0-48.0) 03/01/19 07:00 MCV 101.7 fl (80.0-105.0) 03/01/19 07:00 MCH 32.5 pg (25.0-35.0) 03/01/19 07:00 MCHC 32.0 g/dl (31.0-37.0) 03/01/19 07:00 RDW 12.7 % (11.5-14.5) 03/01/19 07:00 Plt Count 254 10^3/uL (120.0-450.0) 03/01/19 07:00 MPV 10.2 fl (7.0-11.0) 03/01/19 07:00 Neut % (Auto) 40.6 % (50.0-68.0) L 03/01/19 07:00 Lymph % (Auto) 49.9 % (22.0-35.0) H 03/01/19 07:00 Evangeline % (Auto) 5.1 % (1.0-6.0) 03/01/19 07:00 Eos % (Auto) 3.8 % (1.5-5.0) 03/01/19 07:00 Baso % (Auto) 0.6 % (0.0-3.0) 03/01/19 07:00 Lymph # (Auto) 3.2 (1.2-3.4) 03/01/19 07:00 Evangeline # (Auto) 0.3 (0.1-0.6) 03/01/19 07:00 Eos # (Auto) 0.2 (0.0-0.7) 03/01/19 07:00 Baso # (Auto) 0.04 K/mm3 (0.0-2.0) 03/01/19 07:00 Absolute Neuts (auto) 2.56 (1.4-6.5) 03/01/19 07:00 PT 11.2 SECONDS (9.4-12.5) 02/27/19 16:00 INR 1.01 02/27/19 16:00 APTT 52.1 Seconds (26.9-38.3) H 02/28/19 06:15 Sodium 140 mmol/L (132-148) 03/01/19 07:00 Potassium 4.0 mmol/L (3.6-5.0) 03/01/19 07:00 Chloride 109 mmol/L (98-107) H 03/01/19 07:00 Carbon Dioxide 25 mmol/L (21-33) 03/01/19 07:00 Anion Gap 9 (10-20) L 03/01/19 07:00 BUN 8 mg/dL (7-21) 03/01/19 07:00 Creatinine 0.7 mg/dl (0.7-1.2) 03/01/19 07:00 Est GFR ( Amer) > 60 03/01/19 07:00 Est GFR (Non-Af Amer) > 60 03/01/19 07:00 Random Glucose 92 mg/dL (70-110) 03/01/19 07:00 Hemoglobin A1c 5.4 % (4.2-6.5) 02/27/19 14:45 Calcium 8.8 mg/dL (8.4-10.5) 03/01/19 07:00 Phosphorus 3.9 mg/dL (2.5-4.5) 02/27/19 14:50 Magnesium 2.0 mg/dL (1.7-2.2) 02/27/19 14:50 Total Bilirubin 0.4 mg/dL (0.2-1.3) 03/01/19 07:00 AST 36 U/L (14-36) 03/01/19 07:00 ALT 13 U/L (7-56) 03/01/19 07:00 Alkaline Phosphatase 79 U/L (38-126) 03/01/19 07:00 Lactate Dehydrogenase 548 U/L (333-699) 02/27/19 14:50 Total Creatine Kinase 52 U/L (35-230) 02/27/19 14:50 Troponin I 0.95 ng/mL H* 02/28/19 06:15 Total Protein 6.5 g/dL (5.8-8.3) 03/01/19 07:00 Albumin 3.6 g/dL (3.0-4.8) 03/01/19 07:00 Globulin 2.8 gm/dL 03/01/19 07:00 Albumin/Globulin Ratio 1.3 (1.1-1.8) 03/01/19 07:00 Triglycerides 224 mg/dL (35-160) H 02/27/19 14:45 Cholesterol 230 mg/dL (130-200) H 02/27/19 14:45 LDL Cholesterol Direct 169 mg/dL (0-129) H 02/27/19 14:45 HDL Cholesterol 37 mg/dL (29-60) 02/27/19 14:45 Urine Color Yellow (YELLOW) 02/27/19 16:20 Urine Appearance Clear (CLEAR) 02/27/19 16:20 Urine pH 6.0 (4.7-8.0) 02/27/19 16:20 Ur Specific [place] 1.025 (1.005-1.035) 02/27/19 16:20 Urine Protein Trace mg/dL (<30 mg/dL) H 02/27/19 16:20 Urine Glucose (UA) Negative mg/dL (NEGATIVE) 02/27/19 16:20 Urine Ketones Negative mg/dL (NEGATIVE) 02/27/19 16:20 Urine Blood Large (NEGATIVE) H 04/16/19 16:20 Urine Nitrate Negative (NEGATIVE) 02/27/19 16:20 Urine Bilirubin Negative (NEGATIVE) 02/27/19 16:20 Urine Urobilinogen 0.2 E.U./dL (<1 E.U./dL) 02/27/19 16:20 Ur Leukocyte Esterase Negative Ellie/uL (NEGATIVE) 02/27/19 16:20 Urine RBC 5 - 10 /hpf (0-2) H 02/27/19 16:20 Urine WBC None /hpf (0-6) 02/27/19 16:20 Ur Epithelial Cells 10 - 12 /hpf (0-5) H 02/27/19 16:20 Urine Bacteria Few /hpf (NONE) 02/27/19 16:20 Urine HCG, Qual Negative (NEGATIVE) 02/27/19 20:55 - Hospital Course Hospital Course: Upon Admission: 48-year-old female with past medical history of CAD with 1 stent placement 7 years ago, hypertension, migraine, obesity, fibromyalgia, and active smoker presents with chest pain and shortness of breath. Patient states that her chest pain started 5 days ago and has gotten progressively worse. She locates the pain to be in the midsternal radiating to her hands bilaterally. 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 However today chest pain has gotten progressively worse accompanied with shortness of breath that is worse with exertion. Hospital Course: Pt was diagnosed with NSTEMI as EKG showed no acute changes. Serial Troponin levels were 0.51, 0.88, 0.95. Pt was started on aspirin, plavix and heparin drip . Pt was continued on ARB, and started on b-tamara. She was taken to [facility] where a RCA stent was placed. Pt tolerating the procedure well Upon Discharge: Pt is feeling better. She is s/p cardiac cath with BUDDY placement. CP is resolving. Her VSS, labs wnl. Physical exam unchanged. She is to be discharged home with the following medications: ASA 81mg qd Plavix 75mg qd Losartan 50mg qd Coreg 6.25 bid Atorvastatin 40mg hs continue home topamax continue home fiorecet Medications were delivered to bedside Discharge Exam - Head Exam Head Exam: ATRAUMATIC, NORMOCEPHALIC - Eye Exam Eye Exam: EOMI, Normal appearance - ENT Exam ENT Exam: Mucous Membranes Moist - Neck Exam Neck exam: Normal Inspection - Respiratory Exam Respiratory Exam: NORMAL BREATHING PATTERN - Cardiovascular Exam Cardiovascular Exam: REGULAR RHYTHM, +S1, +S2 - GI/Abdominal Exam GI & Abdominal Exam: Normal Bowel Sounds, Unremarkable - Extremities Exam Extremities exam: normal inspection - Back Exam Back exam: NORMAL INSPECTION - Neurological Exam Neurological exam: Alert, Oriented x3 - Psychiatric Exam Psychiatric exam: Normal Affect, Normal Mood - Skin Skin Exam: Dry, Intact, Warm Discharge Plan - Discharge Medications Prescriptions: Aspirin [Ecotrin] 81 mg PO DAILY #14 tabec Atorvastatin Calcium 40 mg PO DAILY #14 tablet Carvedilol [Coreg] 6.25 mg PO 0800,1800 #28 tab Clopidogrel [Plavix] 75 mg PO DAILY #14 tab Losartan [Cozaar] 50 mg PO DAILY #14 tab - Follow Up Plan Condition: STABLE Disposition: HOME/ ROUTINE Instructions: High Blood Pressure (DC), Heart Disease in Women (DC), Medicines After a Heart Attack, Quitting Smoking, What Can Go Wrong After a Heart Attack?, Coronary Heart Disease (DC), Chest Pain (DC), Hypertension (DC) Additional Instructions: Please follow up with your primary care physician, Dr. Alvarez, within 3-5 days of discharge Please follow up with your dealer development manager, Dr. Jones within 1 week of discharge Please resume your previous medications. Please take your medications as directed You have been STARTED on the following medication. Carvedilol 6.25mg. Please take this medication twice a day, as directed on the instructions on the bottle Atorvastatin 40mg. Please take this medication daily as directed on the instructions on the bottle. Please discuss your medications with your doctors Please stop smoking. If your symptoms, or you experience new symptoms, please return to the nearest emergency room Referrals: Austen Jones MD [Staff Provider] - Austen Alvarez DO [Family Provider] - <Brandi Kim - Last Filed: 03/01/19 18:19> Provider - Provider Date of Admission: 02/27/19 16:25 Attending physician: Brandi Kim MD Primary care physician: Brandi Kim MD Consults: 02/27/19 16:29 Cardiology Consult Routine Comment: Consulting Provider: Austen Jones Consulting Physician: Austen Jones Reason for Consult: [facility] Course - Lab Results Lab Results: Most Recent Lab Values WBC 6.3 10^3/uL (4.5-11.0) 03/01/19 07:00 RBC 4.09 10^6/uL (3.5-6.1) 03/01/19 07:00 Hgb 13.3 g/dL (12.0-16.0) 03/01/19 07:00 Hct 41.6 % (36.0-48.0) 03/01/19 07:00 MCV 101.7 fl (80.0-105.0) 03/01/19 07:00 MCH 32.5 pg (25.0-35.0) 03/01/19 07:00 MCHC 32.0 g/dl (31.0-37.0) 03/01/19 07:00 RDW 12.7 % (11.5-14.5) 03/01/19 07:00 Plt Count 254 10^3/uL (120.0-450.0) 03/01/19 07:00 MPV 10.2 fl (7.0-11.0) 03/01/19 07:00 Neut % (Auto) 40.6 % (50.0-68.0) L 03/01/19 07:00 Lymph % (Auto) 49.9 % (22.0-35.0) H 03/01/19 07:00 Evangeline % (Auto) 5.1 % (1.0-6.0) 03/01/19 07:00 Eos % (Auto) 3.8 % (1.5-5.0) 03/01/19 07:00 Baso % (Auto) 0.6 % (0.0-3.0) 03/01/19 07:00 Lymph # (Auto) 3.2 (1.2-3.4) 03/01/19 07:00 Evangeline # (Auto) 0.3 (0.1-0.6) 03/01/19 07:00 Eos # (Auto) 0.2 (0.0-0.7) 03/01/19 07:00 Baso # (Auto) 0.04 K/mm3 (0.0-2.0) 03/01/19 07:00 Absolute Neuts (auto) 2.56 (1.4-6.5) 03/01/19 07:00 PT 11.2 SECONDS (9.4-12.5) 02/27/19 16:00 INR 1.01 02/27/19 16:00 APTT 52.1 Seconds (26.9-38.3) H 02/28/19 06:15 Sodium 140 mmol/L (132-148) 03/01/19 07:00 Potassium 4.0 mmol/L (3.6-5.0) 03/01/19 07:00 Chloride 109 mmol/L (98-107) H 03/01/19 07:00 Carbon Dioxide 25 mmol/L (21-33) 03/01/19 07:00 Anion Gap 9 (10-20) L 03/01/19 07:00 BUN 8 mg/dL (7-21) 03/01/19 07:00 Creatinine 0.7 mg/dl (0.7-1.2) 03/01/19 07:00 Est GFR ( Amer) > 60 03/01/19 07:00 Est GFR (Non-Af Amer) > 60 03/01/19 07:00 Random Glucose 92 mg/dL (70-110) 03/01/19 07:00 Hemoglobin A1c 5.4 % (4.2-6.5) 02/27/19 14:45 Calcium 8.8 mg/dL (8.4-10.5) 03/01/19 07:00 Phosphorus 3.9 mg/dL (2.5-4.5) 02/27/19 14:50 Magnesium 2.0 mg/dL (1.7-2.2) 02/27/19 14:50 Total Bilirubin 0.4 mg/dL (0.2-1.3) 03/01/19 07:00 AST 36 U/L (14-36) 03/01/19 07:00 ALT 13 U/L (7-56) 03/01/19 07:00 Alkaline Phosphatase 79 U/L (38-126) 03/01/19 07:00 Lactate Dehydrogenase 548 U/L (333-699) 02/27/19 14:50 Total Creatine Kinase 52 U/L (35-230) 02/27/19 14:50 Troponin I 0.95 ng/mL H* 02/28/19 06:15 Total Protein 6.5 g/dL (5.8-8.3) 03/01/19 07:00 Albumin 3.6 g/dL (3.0-4.8) 03/01/19 07:00 Globulin 2.8 gm/dL 03/01/19 07:00 Albumin/Globulin Ratio 1.3 (1.1-1.8) 03/01/19 07:00 Triglycerides 224 mg/dL (35-160) H 02/27/19 14:45 Cholesterol 230 mg/dL (130-200) H 02/27/19 14:45 LDL Cholesterol Direct 169 mg/dL (0-129) H 02/27/19 14:45 HDL Cholesterol 37 mg/dL (29-60) 02/27/19 14:45 Urine Color Yellow (YELLOW) 02/27/19 16:20 Urine Appearance Clear (CLEAR) 02/27/19 16:20 Urine pH 6.0 (4.7-8.0) 02/27/19 16:20 Ur Specific [place] 1.025 (1.005-1.035) 02/27/19 16:20 Urine Protein Trace mg/dL (<30 mg/dL) H 02/27/19 16:20 Urine Glucose (UA) Negative mg/dL (NEGATIVE) 02/27/19 16:20 Urine Ketones Negative mg/dL (NEGATIVE) 02/27/19 16:20 Urine Blood Large (NEGATIVE) H 02/27/19 16:20 Urine Nitrate Negative (NEGATIVE) 02/27/19 16:20 Urine Bilirubin Negative (NEGATIVE) 02/27/19 16:20 Urine Urobilinogen 0.2 E.U./dL (<1 E.U./dL) 02/27/19 16:20 Ur Leukocyte Esterase Negative Ellie/uL (NEGATIVE) 02/27/19 16:20 Urine RBC 5 - 10 /hpf (0-2) H 02/27/19 16:20 Urine WBC None /hpf (0-6) 02/27/19 16:20 Ur Epithelial Cells 10 - 12 /hpf (0-5) H 02/27/19 16:20 Urine Bacteria Few /hpf (NONE) 02/27/19 16:20 Urine HCG, Qual Negative (NEGATIVE) 02/27/19 20:55 Attending/Attestation - Attestation I have personally seen and examined this patient.: Yes I have fully participated in the care of the patient.: Yes I have reviewed all pertinent clinical information, including history, physical exam and plan: Yes Notes (Text): 03/01/19 17:42 Attending note; Patient seen and examined with resident. Patient is alert and awake. s/p cath and RCA stent placement. R groin clean. Patient is ambulating fine. Patient is a 48-year-old female with past medical history of CAD with 1 stent placement 7 years ago, hypertension, migraine, obesity, fibromyalgia, and active smoker presents with chest pain and shortness of breath. 1. Chest pain/non-ST elevation PR; EKG shows nonspecific ST-T changes. treated with aspirin, Plavix and heparin drip. status post cardiac cath and RCA stent placement. Case discussed with Dr. Rolon in detail. Patient can be discharged home today. Patient will follow-up with cardiology next week. 2. Hypertension; continue Cozaar . Started on Coreg. 3. Migraine; Continue Topamax. Fioricet as needed ordered. 4. hypercholesterolemia continue Lipitor. 5. Fibromyalgia; patient has muscular tenderness. Medications delivered by the bedside. Upon discharge the patient will follow up with PMD Dr. Alvarez. Follow-up with Dr. Rolon next week. 03/01/19 18:19
[2019-03-01 12:49] VITALS: TEMP 97.6
--- NOTE | 2019-03-01 12:52 | CON ---
DATE OF CONSULTATION: 02/28/2019 REQUESTING PHYSICIAN: Dr. Kim. REASON FOR CONSULTATION: Chest pain, known coronary artery disease. HISTORY: This is a 48-year-old woman, known to me with a history of coronary artery disease, status post prior [id number] myocardial fraction and PCI 7 years ago, who presents to the emergency room with several days history of exertional chest discomfort. At first, she felt that her symptoms were muscular in nature, but each episode tended to occur with exertion and was improved with rest. She had associated dyspnea as well. She has been a smoker for many years and continues to smoke half pack per day. She claims compliance with her medications. Upon admission chest pain has resolved. However, her troponin has risen. Further evaluation was requested. She has had variable compliance with medical followup. She claims compliance with the medications. PAST MEDICAL HISTORY: The past history is notable for hypertension, obesity, migraines, fibromyalgia, prior shoulder surgery, left oophorectomy, and a D and C. MEDICATIONS: Her current medications include Topamax, losartan, Lipitor, and Xanax p.r.n. ALLERGIES: NONE. FAMILY HISTORY: Mother at the age of 53 with complications of heart and renal disease. Her father from lung cancer at the age of 59. Several of the paternal family members have had premature heart disease. SOCIAL HISTORY: She continues to smoke less than a pack per day. She denies alcohol use. 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 REVIEW OF SYSTEMS: A twelve-point review of systems is notable for occasional joint pain and intermittent exertional dyspnea, but otherwise negative. PHYSICAL EXAMINATION: GENERAL: She is an overweight, middle-aged woman. VITAL SIGNS: Her blood pressure was 160/90 with a pulse of 56 and sinus, respirations are 16. She is afebrile. HEENT: Normocephalic, atraumatic. NECK: Supple. No JVD noted. CHEST: Bilateral scattered rhonchi heard. HEART: PMI displaced laterally with systolic murmur at the left sternal border. ABDOMEN: Soft, mildly obese, nontender with normoactive bowel sounds. EXTREMITIES: No clubbing, cyanosis or edema. SKIN: Warm and dry. PSYCHIATRIC: Normal mood and affect. NEUROLOGIC: Alert and oriented x3. No gross motor or sensory deficits notable. DIAGNOSTIC DATA: White count 7.6, hemoglobin and hematocrit are 13.2 and 40.7 with a platelet count of 256,000. PT 11.2, potassium 4.1, BUN and creatinine are 11 and 0.6. Hemoglobin A1c is 5.4%. Initial troponin was 0.51. Repeat is 0.88 and followup is 0.95. Cholesterol 230 with an LDL of 169, triglycerides 224, HDL 37. Chest x-ray reveals normal cardiac silhouette with clear lung dickson. Electrocardiogram reveals sinus rhythm with voltage criteria for LVH and anterior septal wall myocardial infarction and inferior wall myocardial fraction pattern of undetermined age cannot be excluded. IMPRESSION: 1. Apparent [id number] elation myocardial infarction, clinically stable at present. 2. Known coronary artery disease, status post remote percutaneous coronary intervention. 3. Persistent tobacco abuse. 4. History of hypertension and hyperlipidemia. 5. Rest of the problems as noted. RECOMMENDATIONS: Aspirin and Plavix therapy had been initiated. The patient was started on IV heparin. Beta-tamara therapy will continue at this time. Given her presentation and current age, coronary angiography and possible repeat PCI should suitable anatomy be found, has been recommended. The risks and benefits have been discussed with her and she is able agreeable to proceed. Procedure has been scheduled for morning. The need for smoking abstinence was strongly emphasized to her. Thank you for this consultation, and we will be happy to follow along through her hospital course. Austen Jones MD [email or web address]
--- NOTE | 2019-03-01 15:06 | PN ---
DATE: 03/01/2019 SUBJECTIVE: The patient was seen lying in bed on telemetry, she had 6/10 chest pain this morning at rest. Sublingual nitroglycerin was administered and she was clinically improved with minimal residual pain. Electrocardiogram showed no acute changes. She is scheduled for cardiac catheterization this morning. Her current medications include IV heparin, carvedilol 3.125 mg b.i.d., Cozaar 50 mg daily, aspirin, Plavix, Lipitor, Pepcid, and Topamax. PHYSICAL EXAMINATION: GENERAL: She is a middle-aged woman who appears somewhat anxious. VITAL SIGNS: Blood pressure is 150/80 with pulse of 60 and sinus, respirations are 14. She is afebrile. HEENT: No JVD. CHEST: Few scattered rhonchi heard. HEART: PMI displaced laterally. ABDOMEN: Soft, obese, nontender with normoactive bowel sounds. EXTREMITIES: No edema. DIAGNOSTIC DATA: Potassium 4, BUN and creatinine 8 and 0.7. White count 6.3, hemoglobin and hematocrit 13.3 and 41.6 with platelet count of 254,000. IMPRESSION: 1. Non-ST segment myocardial fraction with recurrent chest pain. 2. Coronary artery disease status post remote percutaneous coronary intervention. 3. Persistent tobacco abuse. RECOMMENDATIONS: Current medications will be continued. The patient will undergo urgent catheterization this morning, and if a suitable anatomy is found, that PCI will be performed. Further recommendations will be made based on those findings. The need for tobacco abstinence and aggressive risk factor control was discussed with her. Austen Jones MD
--- NOTE | 2019-03-01 15:41 | CARDCATH ---
PROCEDURE DATE: 03/01/2019 PROCEDURES: 1. Selective left and right coronary angiography. 2. Left ventriculography. 3. PCI of distal RCA with drug-eluting stent. 4. Right femoral arteriography. 5. Mynx deployment. HISTORY: This is a 48-year-old woman with known coronary disease status post prior PCI of the left circumflex artery who was admitted with a non ST segment elevation myocardial infarction. She continued to have intermittent chest pain despite medical therapy and anticoagulants. Urgent catheterization was advised. INDICATION: Non ST segment elevation myocardial infarction. FINDINGS: HEMODYNAMICS: The aortic pressure was 160/80 with left ventricular pressure of 160/14. CORONARY ANATOMY: 1. The left mainstem was normal. 2. The left anterior descending artery and its branches had minimal irregularities. 3. The left circumflex artery had a widely patent stent in its mid portion, but the obtuse marginal branches were free of disease. 4. Right coronary artery was dominant. This had evidence of mild diffuse irregularities throughout the proximal mid segment. At the takeoff of the posterior ascending artery, there was a severe 90% proximal stenosis. The posterolateral branch was of moderate size giving rise to several small posterolateral subbranches. LEFT VENTRICULOGRAPHY: A hand injection was performed in the left ventricle revealing normal wall motion with an ejection fraction of 60%. There was no aortic valve gradient noted on catheter pullback. CORONARY INTERVENTION: A total of 4000 units of intravenous heparin was administered and the ACT was 278 seconds during the procedure. A JR4 guiding catheter was utilized and a [place] wire was advanced into the posterior ascending branch. In order to protect the posterolateral branch, a second wire was utilized. A Choice PT wire was advanced and placed into the distal posterolateral branch. Following this, a 2.0 x 10 mm balloon was placed over the [place] wire and advanced into the proximal PDA. This was inflated to 12 atmospheres. The balloon was then removed. Flow continued to be present in both the PDA and PLV branches. Following this, a 2.75 x 15 mm Resolute [place] drug-eluting stent was advanced into the PDA and deployed with some overlap into the distal RCA. This was inflated to 14 atmospheres for 45 seconds. There was 0% residual stenosis at the site of the lesion. Following this, the Choice PT wire was withdrawn and advanced into the PDA and the [place] wire was withdrawn and advanced through the stent and through a site strut into the posterolateral branch. The initial 2.0 x 10 mm balloon was then taken and advanced through the struts of the stent and inflated to splay out the stent struts at the ostium of the posterolateral branch. GERA grade III flow was present at both sides following the intervention. Following this, all balloon catheters and wires were removed. RIGHT FEMORAL ARTERIOGRAPHY: A right femoral arteriogram was performed in the WHITE projection. This revealed no evidence of significant disease. The puncture site appeared to be in the proximal SFA. The puncture site was then closed with deployment of a Mynx device. CONCLUSION: 1. Patent left circumflex stent. 2. Severe RCA disease involving the ostial PDA. 3. Normal LV function. 4. Successful PCI with distal RCA and PDA branch utilizing a 2.75 x 15 mm Resolute stent as described above. RECOMMENDATIONS: Aspirin and Plavix therapy will be continued for one year. Aggressive risk factor control will be advised as well. Statin therapy has been initiated. Smoking abstinence is strongly encouraged. uAsten Jones MD
[2019-03-01 17:56] VITALS: BP 121/60
--- NOTE | 2019-03-01 19:07 | CARD ---
APPROVED REPORT Date of service: 03/01/2019 EKG Measurement Heart [id number] <Conclusion> Sinus bradycardia Otherwise normal ECG
--- NOTE | 2019-03-01 19:12 | CARD ---
APPROVED REPORT Date of service: 03/01/2019 EKG Measurement Heart [id number] ID [id number] <Conclusion> Normal sinus rhythm Normal ECG
[2019-03-01 19:56] VITALS: RESP 18
== END 2019-03-01 19:30 | disposition home or self-care (01) | DRG 247 ==
LOC: ED 14:04 → ERH 16:25 → 2RSO 18:42
PROVIDERS: ADMIT Internal Medicine; ATTEND Internal Medicine
PROC: 027034Z Dilation of Coronary Artery, One Artery with Drug-eluting Intraluminal Device, Percutaneous Approach (ICD-10-PCS; principal; 2019-03-01)
PROC: 4A023N7 Measurement of Cardiac Sampling and Pressure, Left Heart, Percutaneous Approach (ICD-10-PCS; 2019-03-01)
PROC: B211YZZ Fluoroscopy of Multiple Coronary Arteries using Other Contrast (ICD-10-PCS; 2019-03-01)
PROC: B215YZZ Fluoroscopy of Left Heart using Other Contrast (ICD-10-PCS; 2019-03-01)
DX: I21.4 Non-ST elevation (NSTEMI) myocardial infarction (principal); I25.10 Atherosclerotic heart disease of native coronary artery without angina pectoris; I10 Essential (primary) hypertension; E78.00 Pure hypercholesterolemia, unspecified; F17.210 Nicotine dependence, cigarettes, uncomplicated; M79.7 Fibromyalgia; E78.5 Hyperlipidemia, unspecified; E66.9 Obesity, unspecified; Z68.39 Body mass index [BMI] 39.0-39.9, adult; G43.909 Migraine, unspecified, not intractable, without status migrainosus; Z80.1 Family history of malignant neoplasm of trachea, bronchus and lung; Z82.49 Family history of ischemic heart disease and other diseases of the circulatory system; Z84.1 Family history of disorders of kidney and ureter

== ENCOUNTER 2019-03-21 13:32 | Inpatient (IN) | payer BC ==
[2019-03-21 13:42] VITALS: BMI 40.7
--- NOTE | 2019-03-21 14:15 | ED PDOC ---
Arrival/HPI - General Chief Complaint: Chest Pain Time Seen by Provider: 03/21/19 13:40 Historian: Patient - History of Present Illness Narrative History of Present Illness (Text): 03/21/19 14:04 48 year old F with pmh of HTN, CAD s/p 1 stent, obesity and tobacco use presents with chief complaint of intermittent crushing chest pain w/SOB x9days. Patient reports being advised by Dr. Jones to report to the emergency department after being told of multiple episodes of chest pain lasting between 5-15 minutes for the last 9days. She mentions pain starts on left side of chest and radiates to left arm and jaw. Aspirin offers little relief. She is compliant with medications and is decreasing her tobacco use. Of note, patient had a stent placed 3wks ago. Patient denies any fevers, chills, headache, dizziness, cough, abdominal pain, nausea, vomiting, diarrhea, back pain, neck pain, or any other complaint. PMD: Dr. Alvarez Cardio: Dr. Jones Time/Duration: > week Symptom Onset: Sudden Symptom Course: Unchanged Activities at Onset: Light Context: Home Past Medical History - Provider Review Nursing Documentation Reviewed: Yes - Infectious Disease Hx of Infectious Diseases: None - Reproductive Menopause: No - Cardiac Hx Cardiac Disorders: Yes Hx Hypertension: Yes Other/Comment: stent x1 2013 - Pulmonary Hx Respiratory Disorders: No Hx Bronchitis: Yes (every other winter) Hx Pneumonia: Yes (6 years ago) - Neurological Hx Neurological Disorder: No - HEENT Hx HEENT Disorder: No - Renal Hx Renal Disorder: No - Endocrine/Metabolic Hx Endocrine Disorders: No - Hematological/Oncological Hx Blood Disorders: No - Integumentary Hx Dermatological Disorder: No - Musculoskeletal/Rheumatological Hx Musculoskeletal Disorders: No Hx Falls: No - Gastrointestinal Hx Gastrointestinal Disorders: Yes Hx Diverticulitis: Yes - Genitourinary/Gynecological Hx Genitourinary Disorders: No - Psychiatric Hx Psychophysiologic Disorder: No Hx Substance Use: No - Surgical History Hx Appendectomy: Yes Hx Cardiac Catheterization: Yes Hx Coronary Stent: Yes Other/Comment: left ovary/fallopian tube removal,8 surgeries on left shoulder (1994 -2006) - Anesthesia Hx Anesthesia Reactions: No Family/Social History - Physician Review Nursing Documentation Reviewed: Yes Family/Social History: Unknown Family HX Smoking Status: Former Smoker Hx Alcohol Use: Yes Hx Substance Use: No Allergies/Home Meds Allergies/Adverse Reactions: Allergies Sulfa (Sulfonamide Antibiotics) Adverse Reaction (Verified 04/26/18 13:36) RASH Home Medications: Home Meds Medication Instructions Recorded Confirmed Varenicline Tartrate [Chantix] 1 each PO 03/21/19 Review of Systems - Physician Review All systems were reviewed & negative as marked: Yes - Review of Systems Constitutional: absent: Fevers ENT: absent: Sore Throat, Rhinorrhea, Epistaxis Respiratory: SOB (not active). absent: Cough, Wheezing Cardiovascular: Chest Pain. absent: Orthopnea Gastrointestinal: absent: Abdominal Pain, Diarrhea, Nausea, Vomiting, Hematochezia, Hematemesis Genitourinary Female: absent: Dysuria, Hematuria Musculoskeletal: absent: Arthralgias, Back Pain, Myalgias Skin: absent: Rash Neurological: absent: Headache, Dizziness, Facial Droop, Disequilibrium, Seizure Physical Exam Vital Signs Reviewed: Yes Vital Signs Temp Pulse Resp BP Pulse Ox 03/21/19 13:42 98.3 F 70 18 146/78 97 Temperature: Afebrile Blood Pressure: Normal Pulse: Regular Respiratory Rate: Normal Appearance: Positive for: Well-Appearing, Non-Toxic, Comfortable Pain Distress: Mild Mental Status: Positive for: Alert and Oriented X 3 - Systems Exam Head: Present: Atraumatic, Normocephalic Pupils: Present: PERRL Extroacular Muscles: Present: EOMI Conjunctiva: Present: Normal Mouth: Present: Moist Mucous Membranes Neck: Present: Normal Range of Motion Respiratory/Chest: Present: Clear to Auscultation, Good Air Exchange. No: Respiratory Distress, Accessory Muscle Use Cardiovascular: Present: Regular Rate and Rhythm, Normal S1, S2. No: Murmurs Abdomen: No: Tenderness, Distention, Peritoneal Signs Back: Present: Normal Inspection Upper Extremity: Present: Normal Inspection. No: Cyanosis, Edema Lower Extremity: Present: Normal Inspection. No: Edema Neurological: Present: Speech Normal Skin: Present: Warm, Dry, Normal Color. No: Rashes Psychiatric: Present: Alert, Oriented x 3, Normal Insight, Normal Concentration Medical Decision Making ED Course and Treatment: 03/21/19 14:15 Impression: 48 year old F presents with chief complaint of intermittent crushing chest pain w/SOB x 9days HEART Score: Plan: -- Labs -- EKG -- Chest X-ray -- Urinalysis --SL NTG -- Reassess and disposition Prior Visits: Notes and results from previous visits were reviewed. Patient was last seen in the emergency department on [facility] Notes: 03/21/19 16:30 Labs reviewed with no leukocytosis and negative troponin. Patient reports continued chest pain despite NTG. Call placed to Dr. Nevarez(hospitalist) 03/21/19 16:[address] Flakita Nevarez who accepts patient onto her service. She requests Dr. Quiñonez(cardiology) to be notified of patient. Call placed to Dr. Quiñonez. 03/21/19 16:[address] Quiñonez who agress with plan of management and will see patient - Lab Interpretations Lab Results: 03/21/19 14:10 03/21/19 15:40 Lab Results 03/21/19 15:40: Sodium 140, Potassium 4.1, Chloride 110 H, Carbon Dioxide 24, Anion Gap 11, BUN 12, Creatinine 0.9, Est GFR ( Amer) > 60, Est GFR (Non- Af Amer) > 60, Random Glucose 91, Calcium 8.5, Magnesium 2.0, Total Bilirubin 0.2, AST 31, ALT 15, Alkaline Phosphatase 80, Troponin I < 0.01 D, NT-Pro-B Natriuret Pep 227, Total Protein 6.6, Albumin 3.7, Globulin 2.9, Albumin/Globulin Ratio 1.3 03/21/19 15:20: Urine Color Yellow, Urine Appearance Turbid, Urine pH 7.0, Ur Specific [place] 1.020, Urine Protein Trace H, Urine Glucose (UA) Negative, Urine Ketones Negative, Urine Blood Large H, Urine Nitrate Negative, Urine Bilirubin Negative, Urine Urobilinogen 0.2, Ur Leukocyte Esterase Trace H, Urine RBC Tntc H, Urine WBC 0 - 2 03/21/19 14:10: APTT 23.4 L 03/21/19 14:10: WBC 9.6 D, RBC 4.00, Hgb 13.4, Hct 40.1, MCV 100.3, MCH 33.5, MCHC 33.4, RDW 12.6, Plt Count 275, MPV 10.0, Neut % (Auto) 60.1, Lymph % (Auto) 32.3, [place] % (Auto) 3.8, Eos % (Auto) 3.3, Baso % (Auto) 0.5, Lymph # (Auto) 3.1, [place] # (Auto) 0.4, Eos # (Auto) 0.3, Baso # (Auto) 0.05, Absolute Neuts (auto) 5.78 I have reviewed the lab results: Yes - RAD Interpretation Narrative RAD Interpretations (Text): 03/21/19 15:29 Chest X-ray -- No active disease. Radiology Orders: 03/21/19 14:02 CHEST PORTABLE [RAD] Stat Flow Trader: Radiologist - Scribe Statement The provider has reviewed the documentation as recorded by the Silvestre Fleming All medical record entries made by the Scribe were at my direction and personally dictated by me. I have reviewed the chart and agree that the record accurately reflects my personal performance of the history, physical exam, medical decision making, and the department course for this patient. I have also personally directed, reviewed, and agree with the discharge instructions and disposition. Disposition/Present on Arrival - Present on Arrival Any Indicators Present on Arrival: No History of DVT/PE: No History of Uncontrolled Diabetes: No Urinary Catheter: No History of Decub. Ulcer: No History Surgical Site Infection Following: None - Disposition Have Diagnosis and Disposition been Completed?: Yes Diagnosis: Angina at rest Disposition: HOSPITALIZED Disposition Time: 16:40 Patient Plan: Admission Patient Problems: Current Active Problems Problem Status Onset Angina at rest Acute Condition: FAIR Discharge Instructions (ExitCare): Chest Pain (ED) Forms: [employer] (Uzbek)
[2019-03-21 14:32] LABS: BASO # 0.05 K/mm3 (0.0-2.0); BASO % 0.5 % (0.0-3.0); EOS # 0.3 (0.0-0.7); EOS % 3.3 % (1.5-5.0); HEMOGLOBIN 13.4 g/dL (12.0-16.0); LYMPH # 3.1 (1.2-3.4); LYMPH % 32.3 % (22.0-35.0); MEAN CELL VOLUME 100.3 fl (80.0-105.0); MEAN CORPUSCULAR HEMOGLOBIN 33.5 pg (25.0-35.0); MEAN CORPUSCULAR HGB CONC 33.4 g/dl (31.0-37.0); MONO # 0.4 (0.1-0.6); MONO % 3.8 % (1.0-6.0); RED CELL DISTRIBUTION WIDTH 12.6 % (11.5-14.5); WHITE BLOOD COUNT 9.6 10^3/uL (4.5-11.0)
--- NOTE | 2019-03-21 14:42 | RAD ---
Date of service: 03/21/2019 HISTORY: chest pain COMPARISON: 02/27/2019 TECHNIQUE: 1 view obtained. FINDINGS: LUNGS: No active pulmonary disease. PLEURA: No significant pleural effusion identified, no pneumothorax apparent. CARDIOVASCULAR: No aortic atherosclerotic calcification present. Normal cardiac size. Mild vascular congestion OSSEOUS STRUCTURES: No significant abnormalities. VISUALIZED UPPER ABDOMEN: Normal. OTHER FINDINGS: None. IMPRESSION: No active disease.
[2019-03-21 15:30] LABS: URINE BILIRUBIN NEGATIVE (NEGATIVE); URINE BLOOD LARGE (NEGATIVE); URINE GLUCOSE (UA) NEGATIVE (NEGATIVE); URINE LEUKOCYTE ESTERASE TRACE Leu/uL (NEGATIVE); URINE PROTEIN TRACE mg/dL (<30 mg/dL); URINE UROBILINOGEN 0.2 E.U./dL (<1 E.U./dL)
[2019-03-21 15:31] LABS: URINE APPEARANCE TURBID (CLEAR); URINE COLOR YELLOW (YELLOW)
[2019-03-21 15:33] LABS: URINE RBC TNTC /hpf (0-2); URINE WBC 0 - 2 /hpf (0-6)
[2019-03-21] MEDS ORDERED: Sodium Chloride 0.9% 1,000 ML IV STA (16:01)
[2019-03-21 16:10] LABS: ALB/GLOB RATIO 1.3 (1.1-1.8); ALBUMIN 3.7 g/dL (3.0-4.8); ALT/SGPT 15 U/L (7-56); AST/SGOT 31 U/L (14-36); BLOOD UREA NITROGEN 12 mg/dL (7-21); CALCIUM 8.5 mg/dL (8.4-10.5); GFR NON-AFRICAN AMERICAN > 60
[2019-03-21 16:15] LABS: B-TYPE NATRIURETIC PEPTIDE 227 pg/mL (0-450); TROPONIN I < 0.01 ng/mL
--- NOTE | 2019-03-21 18:41 | CP.PCM.HP ---
<Chito Key - Last Filed: 03/21/19 18:28> History of Present Illness - History of Present Illness History of Present Illness: Chito Key DO, PGY-1 Hospitalist Admission History and Physical for Dr. Flakita Nevarez CC: chest pain HPI: Patient is a 48 year old female with PMH of HTN, CAD (recent MT, s/p PCI), diverticulitis, tobacco abuse, and fibromyalgia presents to ED with a complaint of CP worsening over the past 3 days. She describes the chest pain as a pressure like sensation that is worse with exertion and radiates to her L arm. She expresses concern that this CP is similar to her recent MT (approximately 3 weeks ago). She admits to regularly lifting heavy objects for her work and states that, at times, she gets CP with these activities. She also admits to some intermittent SOB associated with worsening of the CP. She otherwise denies fever/chills, cough, dizziness, palpitations, diaphoresis, abd pain/nausea/vomiting, or urinary complaints. 12-point ROS was otherwise negative except as specified above. PMD: Dr. Alvarez Past Medical History: HTN, recent MT (s/p PCI of distal RCA w/BUDDY), CAD (s/p additional PCI in 2006), diverticulitis, tobacco abuse, and fibromyalgia Past Surgical History: x2, shoulder surgery x8, left oophorectomy, D&C Allergies: Sulfa Home medications: Fioricet as needed, Coreg 3.125 mg BID, Topamax 75 mg BID, Cozaar 50 mg daily, Plavix 75 mg daily, Lipitor 40 mg daily, ASA 81 mg daily Family History: Mother with kidney disease, heart disease, and hypertension, she passed at 53. Patient's father passed from lung cancer at 59. Patient does have a grandfather the past in his 50s, and uncles the past 1 at age 32 and the other at 48 Social History: Admits to current 1 PPD smoking history for the past 20 years. She denies EtOH or illicit drug use. 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 Pharmacy: [facility] in [place] Present on Admission - Present on Admission Any Indicators Present on Admission: No History of DVT/PE: No History of Uncontrolled Diabetes: No Urinary Catheter: No Decubitus Ulcer Present: No Past Patient History - Infectious Disease Hx of Infectious Diseases: None - Past Medical History & Family History Past Medical History?: Yes - Past Social History Smoking Status: Former Smoker - CARDIAC Hx Cardiac Disorders: Yes Hx Hypertension: Yes Other/Comment: stent x1 2012 - PULMONARY Hx Respiratory Disorders: No Hx Bronchitis: Yes (every other winter) Hx Pneumonia: Yes (6 years ago) - NEUROLOGICAL Hx Neurological Disorder: No - HEENT Hx HEENT Problems: No - RENAL Hx Chronic Kidney Disease: No - ENDOCRINE/METABOLIC Hx Endocrine Disorders: No - HEMATOLOGICAL/ONCOLOGICAL Hx Blood Disorders: No - INTEGUMENTARY Hx Dermatological Problems: No - MUSCULOSKELETAL/RHEUMATOLOGICAL Hx Musculoskeletal Disorders: No Hx Falls: No - GASTROINTESTINAL Hx Gastrointestinal Disorders: Yes Hx Diverticulitis: Yes - GENITOURINARY/GYNECOLOGICAL Hx Genitourinary Disorders: No - PSYCHIATRIC Hx Psychophysiologic Disorder: No Hx Substance Use: No - SURGICAL HISTORY Hx Appendectomy: Yes Hx Cardiac Catheterization: Yes Hx Coronary Stent: Yes Other/Comment: left ovary/fallopian tube removal,8 surgeries on left shoulder (1994 -2006) - ANESTHESIA Hx Anesthesia Reactions: No Meds Allergies/Adverse Reactions: Allergies Allergy/AdvReac Type Severity Reaction Status Date / Time Sulfa (Sulfonamide AdvReac RASH Verified 04/26/18 13:36 Antibiotics) Physical Exam - Constitutional Appears: Non-toxic, No Acute Distress - Head Exam Head Exam: ATRAUMATIC, NORMOCEPHALIC - Eye Exam Eye Exam: EOMI, PERRL - ENT Exam ENT Exam: Mucous Membranes Moist - Neck Exam Neck exam: Positive for: Full Rom, Normal Inspection - Respiratory Exam Respiratory Exam: Clear to Auscultation Bilateral, NORMAL BREATHING PATTERN. absent: Accessory Muscle Use, Rales, Rhonchi, Wheezes, Respiratory Distress - Cardiovascular Exam Cardiovascular Exam: REGULAR RHYTHM, RRR, +S1, +S2. absent: Diastolic murmur, Gallop, Rubs, Systolic Murmur - GI/Abdominal Exam GI & Abdominal Exam: Normal Bowel Sounds, Soft. absent: Guarding, Rebound, Tenderness - Extremities Exam Extremities exam: Positive for: full ROM, normal inspection. Negative for: pedal edema - Back Exam Back exam: NORMAL INSPECTION - Neurological Exam Neurological exam: Alert, Oriented x3 - Psychiatric Exam Psychiatric exam: Normal Affect, Normal Mood - Skin Skin Exam: Dry, Intact, Warm Results - Vital Signs Recent Vital Signs: Last Vital Signs Temp 98.3 F 03/21/19 13:42 Pulse 67 03/21/19 17:03 Resp 16 03/21/19 17:03 BP 126/69 03/21/19 17:03 Pulse Ox 95 03/21/19 17:03 - Labs Result Diagrams: 03/21/19 14:10 03/21/19 15:40 Labs: Laboratory Results - last 24 hr 03/21/19 03/21/19 03/21/19 14:10 14:10 15:20 WBC 9.6 D RBC 4.00 Hgb 13.4 Hct 40.1 MCV 100.3 MCH 33.5 MCHC 33.4 RDW 12.6 Plt Count 275 MPV 10.0 Neut % (Auto) 60.1 Lymph % (Auto) 32.3 [place] % (Auto) 3.8 Eos % (Auto) 3.3 Baso % (Auto) 0.5 Lymph # (Auto) 3.1 [place] # (Auto) 0.4 Eos # (Auto) 0.3 Baso # (Auto) 0.05 Absolute Neuts (auto) 5.78 APTT 23.4 L Sodium Potassium Chloride Carbon Dioxide Anion Gap BUN Creatinine Est GFR ( Amer) Est GFR (Non-Af Amer) Random Glucose Calcium Magnesium Total Bilirubin AST ALT Alkaline Phosphatase Troponin I NT-Pro-B Natriuret Pep Total Protein Albumin Globulin Albumin/Globulin Ratio Urine Color Yellow Urine Appearance Turbid Urine pH 7.0 Ur Specific [place] 1.020 Urine Protein Trace H Urine Glucose (UA) Negative Urine Ketones Negative Urine Blood Large H Urine Nitrate Negative Urine Bilirubin Negative Urine Urobilinogen 0.2 Ur Leukocyte Esterase Trace H Urine RBC Tntc H Urine WBC 0 - 2 03/21/19 15:40 WBC RBC Hgb Hct MCV MCH MCHC RDW Plt Count MPV Neut % (Auto) Lymph % (Auto) [place] % (Auto) Eos % (Auto) Baso % (Auto) Lymph # (Auto) [place] # (Auto) Eos # (Auto) Baso # (Auto) Absolute Neuts (auto) APTT Sodium 140 Potassium 4.1 Chloride 110 H Carbon Dioxide 24 Anion Gap 11 BUN 12 Creatinine 0.9 Est GFR ( Amer) > 60 Est GFR (Non-Af Amer) > 60 Random Glucose 91 Calcium 8.5 Magnesium 2.0 Total Bilirubin 0.2 AST 31 ALT 15 Alkaline Phosphatase 80 Troponin I < 0.01 D NT-Pro-B Natriuret Pep 227 Total Protein 6.6 Albumin 3.7 Globulin 2.9 Albumin/Globulin Ratio 1.3 Urine Color Urine Appearance Urine pH Ur Specific [place] Urine Protein Urine Glucose (UA) Urine Ketones Urine Blood Urine Nitrate Urine Bilirubin Urine Urobilinogen Ur Leukocyte Esterase Urine RBC Urine WBC Assessment & Plan - Assessment and Plan (Free Text) Assessment: 48 yo F with PMH of HTN, recent MT (s/p PCI of distal RCA w/BUDDY), CAD (s/p additional PCI in 2006), diverticulitis, tobacco abuse, and fibromyalgia admitted for CP and ACS r/o. 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 Jones, consulted, all recs appreciated Migraines Continue home topamax Will hold patient's PRN fioricet pending cardiology eval HTN Continue home cozaar, coreg HLD Continue home lipitor Tobacco abuse Advise regularly on the importance of cessation Advise on negative CV effects of smoking Hematuria Patient is currently menstruating DVT/GI PPX: SCD/protonix Full Code HHD Monitor on telemetry Patient seen, examined with, and plan discussed with my attending Dr. Flakita Key D.O. IM Resident PGY-1 Pager: [phone] <Suzy Nevarez R - Last Filed: 03/22/19 12:26> Results - Vital Signs Recent Vital Signs: Last Vital Signs Temp 98 F 03/22/19 06:00 Pulse 60 03/22/19 10:00 Resp 16 03/22/19 06:00 BP 148/80 03/22/19 09:05 Pulse Ox 96 03/22/19 06:00 - Labs Result Diagrams: 03/22/19 03:01 03/22/19 03:01 Labs: Laboratory Results - last 24 hr 03/21/19 03/21/19 03/21/19 14:10 14:10 15:20 WBC 9.6 D RBC 4.00 Hgb 13.4 Hct 40.1 MCV 100.3 MCH 33.5 MCHC 33.4 RDW 12.6 Plt Count 275 MPV 10.0 Neut % (Auto) 60.1 Lymph % (Auto) 32.3 [place] % (Auto) 3.8 Eos % (Auto) 3.3 Baso % (Auto) 0.5 Lymph # (Auto) 3.1 [place] # (Auto) 0.4 Eos # (Auto) 0.3 Baso # (Auto) 0.05 Absolute Neuts (auto) 5.78 APTT 23.4 L D-Dimer, Quantitative Sodium Potassium Chloride Carbon Dioxide Anion Gap BUN Creatinine Est GFR ( Amer) Est GFR (Non-Af Amer) Random Glucose Hemoglobin A1c Calcium Phosphorus Magnesium Total Bilirubin AST ALT Alkaline Phosphatase Troponin I NT-Pro-B Natriuret Pep Total Protein Albumin Globulin Albumin/Globulin Ratio Triglycerides Cholesterol LDL Cholesterol Direct HDL Cholesterol TSH 3rd Generation Urine Color Yellow Urine Appearance Turbid Urine pH 7.0 Ur Specific [place] 1.020 Urine Protein Trace H Urine Glucose (UA) Negative Urine Ketones Negative Urine Blood Large H Urine Nitrate Negative Urine Bilirubin Negative Urine Urobilinogen 0.2 Ur Leukocyte Esterase Trace H Urine RBC Tntc H Urine WBC 0 - 2 03/21/19 03/21/19 03/21/19 15:40 19:42 21:28 WBC RBC Hgb Hct MCV MCH MCHC RDW Plt Count MPV Neut % (Auto) Lymph % (Auto) [place] % (Auto) Eos % (Auto) Baso % (Auto) Lymph # (Auto) [place] # (Auto) Eos # (Auto) Baso # (Auto) Absolute Neuts (auto) APTT D-Dimer, Quantitative 224 Sodium 140 Potassium 4.1 Chloride 110 H Carbon Dioxide 24 Anion Gap 11 BUN 12 Creatinine 0.9 Est GFR ( Amer) > 60 Est GFR (Non-Af Amer) > 60 Random Glucose 91 Hemoglobin A1c Calcium 8.5 Phosphorus Magnesium 2.0 Total Bilirubin 0.2 AST 31 ALT 15 Alkaline Phosphatase 80 Troponin I < 0.01 D < 0.01 NT-Pro-B Natriuret Pep 227 Total Protein 6.6 Albumin 3.7 Globulin 2.9 Albumin/Globulin Ratio 1.3 Triglycerides Cholesterol LDL Cholesterol Direct HDL Cholesterol TSH 3rd Generation Urine Color Urine Appearance Urine pH Ur Specific [place] Urine Protein Urine Glucose (UA) Urine Ketones Urine Blood Urine Nitrate Urine Bilirubin Urine Urobilinogen Ur Leukocyte Esterase Urine RBC Urine WBC 03/22/19 03/22/19 03/22/19 03:01 03:01 03:01 WBC 7.6 D RBC 3.85 Hgb 12.7 Hct 39.0 MCV 101.3 MCH 33.0 MCHC 32.6 RDW 12.7 Plt Count 251 MPV 9.9 Neut % (Auto) 43.8 L Lymph % (Auto) 46.3 H [place] % (Auto) 5.8 Eos % (Auto) 3.4 Baso % (Auto) 0.7 Lymph # (Auto) 3.5 H [place] # (Auto) 0.4 Eos # (Auto) 0.3 Baso # (Auto) 0.05 Absolute Neuts (auto) 3.34 APTT D-Dimer, Quantitative Sodium 141 Potassium 4.5 Chloride 111 H Carbon Dioxide 25 Anion Gap 10 BUN 10 Creatinine 0.6 L Est GFR ( Amer) > 60 Est GFR (Non-Af Amer) > 60 Random Glucose 110 Hemoglobin A1c 5.5 Calcium 8.9 Phosphorus 4.0 Magnesium 2.2 Total Bilirubin 0.3 AST 28 ALT 15 Alkaline Phosphatase 76 Troponin I < 0.01 NT-Pro-B Natriuret Pep Total Protein 6.4 Albumin 3.5 Globulin 2.9 Albumin/Globulin Ratio 1.2 Triglycerides 91 Cholesterol 147 LDL Cholesterol Direct 102 HDL Cholesterol 31 TSH 3rd Generation Urine Color Urine Appearance Urine pH Ur Specific [place] Urine Protein Urine Glucose (UA) Urine Ketones Urine Blood Urine Nitrate Urine Bilirubin Urine Urobilinogen Ur Leukocyte Esterase Urine RBC Urine WBC 03/22/19 03:01 WBC RBC Hgb Hct MCV MCH MCHC RDW Plt Count MPV Neut % (Auto) Lymph % (Auto) [place] % (Auto) Eos % (Auto) Baso % (Auto) Lymph # (Auto) [place] # (Auto) Eos # (Auto) Baso # (Auto) Absolute Neuts (auto) APTT D-Dimer, Quantitative Sodium Potassium Chloride Carbon Dioxide Anion Gap BUN Creatinine Est GFR ( Amer) Est GFR (Non-Af Amer) Random Glucose Hemoglobin A1c Calcium Phosphorus Magnesium Total Bilirubin AST ALT Alkaline Phosphatase Troponin I NT-Pro-B Natriuret Pep Total Protein Albumin Globulin Albumin/Globulin Ratio Triglycerides Cholesterol LDL Cholesterol Direct HDL Cholesterol TSH 3rd Generation 3.04 Urine Color Urine Appearance Urine pH Ur Specific [place] Urine Protein Urine Glucose (UA) Urine Ketones Urine Blood Urine Nitrate Urine Bilirubin Urine Urobilinogen Ur Leukocyte Esterase Urine RBC Urine WBC Attending/Attestation - Attestation I have personally seen and examined this patient.: Yes I have fully participated in the care of the patient.: Yes I have reviewed all pertinent clinical information: Yes Notes (Text): Patient seen and examined by me with resident at approximately 5PM on 03/21/19 in the emergency room. Case including HPI, physical exam, and assessment and plan discussed with resident. Agree with above with following additions/corrections. Patient is a 48-year-old female with past medical history significant for hypertension, coronary artery disease status post 2 stent placements last one approximately 3 weeks ago, diverticulitis, tobacco abuse, fibromyalgia, and migraines that presented to the emergency room with chest pain. Patient states that she had a cardiac catheterization and stent placement approximately 3 weeks ago. She states that she was having some chest pain approximately 2 weeks ago and followed up with Dr. Rolon in the office. She was doing okay for 1 week. Approximately 2 days ago, patient started to have some chest pain. She states the pain is on and off. This is not associated with anything in particular. She states that the pain occurred twice after some activity. The pain lasts appr oximately 5-15 minutes. Patient states that the pain feels like a crushing pain in the middle of her chest and radiates to her left arm and neck. She states that the pain in her neck and arm is a "numbness and burning feeling." She states that she feels short of breath with the pain. Patient states that she has tried taking an extra aspirin without any relief. She states she did take a Xanax last night which did help a little bit. She denies any nausea or vomiting. She states she is having some abdominal cramping secondary to menstruating. No fevers or chills. No headaches or dizziness. No dysuria. No diarrhea or constipation. No palpitations. Patient is a current smoker but is trying to quit and is on Chantix. 12 point review of systems reviewed by me. Please see above HPI. All other syst ems negative. Physical exam: General: Awake and alert sitting up in bed in no acute distress. HEENT: Normocephalic, atraumatic. Extraocular muscles intact. Pupils equal and reactive, no scleral icterus. Oropharynx is pink and moist. No pharyngeal erythema or exudate appreciated. Neck is supple. Cardiovascular: Regular rhythm. Normal S1 and S2. No murmus, rubs, or gallops appreciated Pulmonary: Normal respiratory effort. No rhonci, rales, or wheezing appreciated. Gastrointestinal: Soft, nondistended. Nontender. Positive bowel sounds all 4 quadrants. No guarding. Musculoskeletal: Moves all extremities. No calf tenderness. No edema appreciated. Central nervous system: AAO x3. CN2-12 grossly intact. Dermatologic: Skin warm and dry. Assessment and plan: Patient is a 48-year-old female with past medical history significant for hypertension, coronary artery disease status post 2 stent josie cements last one approximately 3 weeks ago, diverticulitis, tobacco abuse, fibromyalgia, and migraines that presented to the emergency room with chest pain. 1. Chest pain in a patient with CAD s/p stent placement. Pain improved with nitro in the emergency room. Cardiology consulted. First troponin within normal limits. Follow up serial troponins. Continue ASA, Plavix, Lipitor, Coreg, and Cozaar. Monitor on telemetry 2. Hypertension. Continue home coreg and cozaar 3. Migraines. Continue home topamax 4. Tobacco abuse. Patient is trying to quit. Currently on Chantix at home. Case was discussed in detail with the patient and patient's at bedside regarding current diagnosis, study results, and treatment plan. All questions answered.
[2019-03-22 03:55] LABS: BASO # 0.05 K/mm3 (0.0-2.0); BASO % 0.7 % (0.0-3.0); EOS # 0.3 (0.0-0.7); EOS % 3.4 % (1.5-5.0); HEMOGLOBIN 12.7 g/dL (12.0-16.0); LYMPH # 3.5 (1.2-3.4); LYMPH % 46.3 % (22.0-35.0); MEAN CELL VOLUME 101.3 fl (80.0-105.0); MEAN CORPUSCULAR HGB CONC 32.6 g/dl (31.0-37.0); MEAN PLATELET VOLUME 9.9 fl (7.0-11.0); MONO # 0.4 (0.1-0.6); MONO % 5.8 % (1.0-6.0); RBC 3.85 10^6/uL (3.5-6.1); RED CELL DISTRIBUTION WIDTH 12.7 % (11.5-14.5)
[2019-03-22 04:06] LABS: WHITE BLOOD COUNT 7.6 10^3/uL (4.5-11.0)
[2019-03-22 04:16] LABS: ALB/GLOB RATIO 1.2 (1.1-1.8); ALBUMIN 3.5 g/dL (3.0-4.8); ALT/SGPT 15 U/L (7-56); AST/SGOT 28 U/L (14-36); BLOOD UREA NITROGEN 10 mg/dL (7-21); CALCIUM 8.9 mg/dL (8.4-10.5); GFR NON-AFRICAN AMERICAN > 60; HDL CHOLESTEROL 31 mg/dL (29-60)
[2019-03-22 04:27] LABS: LDL CHOLESTEROL 102 mg/dL (0-129); TROPONIN I < 0.01 ng/mL
[2019-03-22] MEDS: Pantoprazole 40 mg EC Tab PO SCH (06:07)
--- NOTE | 2019-03-22 10:32 | CARD ---
APPROVED REPORT Date of service: 03/21/2019 EKG Measurement Heart [id number] <Conclusion> Normal sinus rhythm Minimal voltage criteria for LVH, may be normal variant Possible Lateral infarct, age undetermined Abnormal ECG
--- NOTE | 2019-03-22 10:48 | CARD ---
APPROVED REPORT Date of service: 03/22/2019 EKG Measurement Heart [id number] <Conclusion> Normal sinus rhythm Normal ECG
[2019-03-22] MEDS ORDERED: VARENICLINE TARTRATE PO SCH (11:30)
[2019-03-22] MEDS ORDERED: VARENICLINE 1 MG PO SCH ×2 (11:45→11:55)
[2019-03-22] MEDS ORDERED: Apap-Butalbital-Caffeine 325-50-40mg Tab PO ONE (12:20)
--- NOTE | 2019-03-22 12:34 | CP.PCM.PN ---
<Chito Key - Last Filed: 03/22/19 12:35> Subjective - Date & Time of Evaluation Date of Evaluation: 03/22/19 Time of Evaluation: 07:00 - Subjective Subjective: Chito Key DO, PGY-1 Hospitalist Progress Note for Dr. Flakita Nevarez Patient was seen and examined at bedside this AM. She reports continuing to have intermittent chest pain through the night but that it improved s/p NG treatment. She states she is having a migraine this AM and is requesting fioricet. She otherwise offers no additional complaints and denies fever/chills, CP, SOB, abd pain/nausea/vomiting, or urinary complaints. Objective - Vital Signs/Intake and Output Vital Signs (last 24 hours): Temp Pulse Resp BP Pulse Ox 98 F 60 16 148/80 96 03/22/19 06:00 03/22/19 10:00 03/22/19 06:00 03/22/19 09:05 03/22/19 06:00 - Medications Medications: Current Medications Aspirin (Ecotrin) 81 mg PO DAILY [facility] Last Admin: 03/22/19 09:05 Dose: 81 mg Atorvastatin Calcium (Lipitor) 40 mg PO DAILY [facility] Last Admin: 03/22/19 09:04 Dose: 40 mg Carvedilol (Coreg) 3.125 mg PO 0800,1800 [facility] Last Admin: 03/22/19 09:05 Dose: 3.125 mg Clopidogrel Bisulfate (Plavix) 75 mg PO DAILY [facility] Last Admin: 03/22/19 09:05 Dose: 75 mg Home Med (Home Med) 1 unit PO BID [facility] Losartan Potassium (Cozaar) 50 mg PO DAILY [facility] Last Admin: 03/22/19 09:05 Dose: 50 mg Pantoprazole Sodium (Protonix Ec Tab) 40 mg PO 0600 [facility] Last Admin: 03/22/19 06:07 Dose: 40 mg Topiramate (Topamax) 75 mg PO BID [facility]; Protocol Last Admin: 03/22/19 09:04 Dose: 75 mg - Labs Labs: 03/22/19 03:01 03/22/19 03:01 APTT 23.4 Seconds (26.9-38.3) L 03/21/19 14:10 - Constitutional Appears: Non-toxic, No Acute Distress - Head Exam Head Exam: ATRAUMATIC, NORMOCEPHALIC - Eye Exam Eye Exam: EOMI, PERRL - ENT Exam ENT Exam: Mucous Membranes Moist - Neck Exam Neck Exam: Full ROM. absent: Lymphadenopathy, Thyromegaly - Respiratory Exam Respiratory Exam: Clear to Ausculation Bilateral, NORMAL BREATHING PATTERN. absent: Accessory Muscle Use, Rales, Rhonchi, Wheezes, Respiratory Distress - Cardiovascular Exam Cardiovascular Exam: REGULAR RHYTHM, RRR, +S1, +S2. absent: Diastolic murmur, Gallop, Rubs, Murmur - GI/Abdominal Exam GI & Abdominal Exam: Soft, Normal Bowel Sounds. absent: Guarding, Tenderness - Extremities Exam Extremities Exam: Full ROM. absent: Pedal Edema - Back Exam Back Exam: NORMAL INSPECTION - Neurological Exam Neurological Exam: Alert, Awake, Oriented x3 - Psychiatric Exam Psychiatric exam: Normal Affect, Normal Mood - Skin Skin Exam: Dry, Intact, Warm Assessment and Plan - Assessment and Plan (Free Text) Assessment: 48 yo F with PMH of HTN, recent [place] (s/p PCI of distal RCA w/BUDDY), CAD (s/p additional PCI in 2006), diverticulitis, tobacco abuse, and fibromyalgia admitted for CP and ACS r/o. Plan: Chest pain May be 2/2 angina vs musculoskeletal CP from heavy lifting Repeat EKG in AM without concerning findings, trop negative x 3 Patient continues to have persistent chest pain which is relieved by NG May continue NG PRN for chest pain Per Dr. Jones, plan for cath tomorrow, will continue to monitor until then Last TTE completed in 02/2017 with LVEF of 61%, no dysfunction noted Cardiology following, all recs appreciated Migraines Continue home topamax Resume patient's home fioricet PRN migraine HTN Continue home cozaar, coreg HLD Continue home lipitor Tobacco abuse Continue to advise on the importance of cessation, including negative CV effects of smoking Hematuria Patient is currently menstruating DVT/GI PPX: SCD/protonix Full Code HHD Monitor on telemetry Patient seen, examined with, and plan discussed with my attending Dr. Flakita Key D.O. IM Resident PGY-1 Pager: [phone] <Suzy Nevarez R - Last Filed: 03/23/19 13:20> Objective - Vital Signs/Intake and Output Vital Signs (last 24 hours): Temp Pulse Resp BP Pulse Ox 98.2 F 88 20 117/63 98 03/23/19 12:29 03/23/19 12:29 03/23/19 12:29 03/23/19 12:29 03/23/19 09:07 Intake and Output: 03/23/19 03/23/19 06:59 18:59 Intake Total 240 Balance 240 - Medications Medications: Current Medications Acetaminophen/Butalbital/Caffeine (Fioricet) 1 tab PO DAILY PRN PRN Reason: Headache Last Admin: 03/23/19 12:06 Dose: 1 tab Amlodipine Besylate (Norvasc) 10 mg PO DAILY [facility] Last Admin: 03/23/19 12:06 Dose: 10 mg Aspirin (Ecotrin) 81 mg PO DAILY [facility] Last Admin: 03/23/19 09:37 Dose: Not Given Atorvastatin Calcium (Lipitor) 40 mg PO DAILY [facility] Last Admin: 03/23/19 09:37 Dose: Not Given Carvedilol (Coreg) 3.125 mg PO 0800,1800 [facility] Last Admin: 03/23/19 08:13 Dose: Not Given Clopidogrel Bisulfate (Plavix) 75 mg PO DAILY [facility] Last Admin: 03/23/19 09:37 Dose: Not Given Home Med (Home Med) 1 unit PO BID [facility] Last Admin: 03/23/19 09:37 Dose: Not Given Sodium Chloride (Sodium Chloride 0.9%) 1,000 mls @ 100 mls/hr IV .Q10H [facility] Stop: 03/23/19 14:16 Last Admin: 03/23/19 12:12 Dose: 100 mls/hr Pantoprazole Sodium (Protonix Ec Tab) 40 mg PO 0600 [facility] Last Admin: 03/23/19 06:40 Dose: 40 mg Topiramate (Topamax) 75 mg PO BID [facility]; Protocol Last Admin: 03/23/19 09:37 Dose: Not Given - Labs Labs: 03/23/19 06:35 03/23/19 06:35 APTT 23.4 Seconds (26.9-38.3) L 03/21/19 14:10 Attending/Attestation - Attestation I have personally seen and examined this patient.: Yes I have fully participated in the care of the patient.: Yes I have reviewed all pertinent clinical information, including history, physical exam and plan: Yes Notes (Text): Patient seen and examined by me with resident at approximately 8:35AM on 03/22/19. Case including HPI, physical exam, and assessment and plan discussed with resident. Agree with above with following additions/corrections. Patient is a 48-year-old female with past medical history significant for hypertension, coronary artery disease status post 2 stent placements last one approximately 3 weeks ago, diverticulitis, tobacco abuse, fibromyalgia, and migraines that presented to the emergency room with chest pain. Patient states that she is feeling better today. States that the chest pain has improved from what she was having at home. She states that she does feel like she is starting to have a migraine headache and is asking for Fioricet. She denies any shortness of breath or palpitations. No nausea or vomiting. Patient states she is having mild menstrual cramps. No fevers or chills. No headaches or dizziness. No dysuria. Physical exam: General: Awake and alert sitting up in bed in no acute distress. HEENT: Normocephalic, atraumatic. Extraocular muscles intact. Pupils equal and reactive, no scleral icterus. Oropharynx is pink and moist. No pharyngeal erythema or exudate appreciated. Neck is supple. Cardiovascular: Regular rhythm. Normal S1 and S2. No murmus, rubs, or gallops appreciated Pulmonary: Normal respiratory effort. No rhonci, rales, or wheezing appreciated. Gastrointestinal: Soft, nondistended. Nontender. Positive bowel sounds all 4 quadrants. No guarding. Musculoskeletal: Moves all extremities. No calf tenderness. No edema appreciated. Central nervous system: AAO x3. CN2-12 grossly intact. Dermatologic: Skin warm and dry. Assessment and plan: Patient is a 48-year-old female with past medical history significant for hypertension, coronary artery disease status post 2 stent placements last one approximately 3 weeks ago, diverticulitis, tobacco abuse, fibromyalgia, and migraines that presented to the emergency room with chest pain. 1. Chest pain in a patient with CAD s/p stent placement. Pain improved. Cardiology recommendations appreciated. Troponins within normal limits. Patient for cardiac cath tomorrow. Continue ASA, Plavix, Lipitor, Coreg, and Cozaar. Continue to monitor on telemetry 2. Hypertension. Continue home coreg and cozaar 3. Migraines. Continue home topamax. Will give a dose of Fioricet. 4. Tobacco abuse. Patient is trying to quit. Currently on Chantix. Case was discussed in detail with the patient bedside regarding current diagnosis, study results, and treatment plan. All questions answered.
[2019-03-22 17:04] VITALS: O2SAT 98
[2019-03-22] MEDS: VARENICLINE 1 MG PO SCH (17:11)
[2019-03-23] MEDS: Pantoprazole 40 mg EC Tab PO SCH (06:40)
[2019-03-23] MEDS ORDERED: Iodixanol 320 MG/ML 200 ML BOTTLE IV ONE (06:57)
[2019-03-23] MEDS ORDERED: Iodixanol 320 MG/ML 100 ML BOTTLE IV ONE (06:57)
[2019-03-23] MEDS ORDERED: Phenylephrine 10 mg/ml Inj ONE (06:57)
[2019-03-23] MEDS ORDERED: Nitroglycerin 50mg in D5W 0 MG/0 ML BOTTLE IV ONE (06:57)
[2019-03-23] MEDS ORDERED: Iohexol 350mgl/ml 50 ML ONE (06:57)
[2019-03-23] MEDS ORDERED: Lidocaine PF 2% (5 ml) Inj (For Cardiac Arrhy) ONE (06:57)
[2019-03-23 07:00] LABS: BASO # 0.03 K/mm3 (0.0-2.0); BASO % 0.4 % (0.0-3.0); EOS # 0.3 (0.0-0.7); EOS % 3.4 % (1.5-5.0); HEMOGLOBIN 12.9 g/dL (12.0-16.0); LYMPH # 3.3 (1.2-3.4); LYMPH % 41.6 % (22.0-35.0); MEAN CELL VOLUME 100.3 fl (80.0-105.0); MEAN CORPUSCULAR HEMOGLOBIN 32.6 pg (25.0-35.0); MEAN CORPUSCULAR HGB CONC 32.5 g/dl (31.0-37.0); MEAN PLATELET VOLUME 9.7 fl (7.0-11.0); MONO # 0.3 (0.1-0.6); MONO % 4.3 % (1.0-6.0); RBC 3.96 10^6/uL (3.5-6.1); RED CELL DISTRIBUTION WIDTH 12.4 % (11.5-14.5); WHITE BLOOD COUNT 7.8 10^3/uL (4.5-11.0)
[2019-03-23 07:25] LABS: ALB/GLOB RATIO 1.2 (1.1-1.8); ALBUMIN 3.6 g/dL (3.0-4.8); ALT/SGPT 9 U/L (7-56); AST/SGOT 30 U/L (14-36); BLOOD UREA NITROGEN 10 mg/dL (7-21); CALCIUM 8.9 mg/dL (8.4-10.5); GFR NON-AFRICAN AMERICAN > 60
[2019-03-23] MEDS ORDERED: Apap-Butalbital-Caffeine 325-50-40mg Tab PO PRN (08:00)
--- NOTE | 2019-03-23 09:35 | CON ---
DATE OF CONSULTATION: 03/22/2019 REQUESTING PHYSICIAN: Dr. Nevarez. REASON FOR CONSULTATION: Chest pain. HISTORY: This is a 48-year-old woman, well-known to me with a history of coronary artery disease, status post remote PCI of the left circumflex and recent PCI of the distal RCA, who has had recurrent chest pain over the past several days. Her RCA procedure was performed just last month. Since discharge she states she has had crushing retrosternal chest discomfort. Most episodes occur at rest, but some occur with exertion. She was given sublingual nitroglycerin in the emergency room and with some improvement. She claims compliance with her medical regimen. She has been a smoker for many years and has been started on Chantix and has decided to stop smoking as of today. PAST MEDICAL HISTORY: Her past history is notable for the problems mentioned above. She has had pneumonia in the past as well. She has had prior shoulder surgery as well as a left oophorectomy. MEDICATIONS: Medications at home included aspirin, Plavix, and Chantix. ALLERGIES: SHE HAS HAD A REACTION TO SULFAS IN THE PAST. SOCIAL HISTORY: She is a smoker up until today. FAMILY HISTORY: Unremarkable for premature heart disease. REVIEW OF SYSTEMS: A 12-point review of systems is notable mainly for the problems mentioned above. She denies any PND or orthopnea. PHYSICAL EXAMINATION: GENERAL: She is an overweight, middle-aged woman. VITAL SIGNS: Her blood pressure is 148/80 with a pulse of 66 and sinus, respirations are 16. She is afebrile. HEENT: No JVD. CHEST: Few scattered rhonchi heard. HEART: PMI in normal position. No pathological murmurs or gallops noted. ABDOMEN: Soft and nontender, mildly obese with normoactive bowel sounds. EXTREMITIES: No edema. SKIN: Warm and dry. PSYCHIATRIC: Normal mood and affect. NEUROLOGIC: Alert and oriented x3. No gross motor or sensory deficits appreciable. DIAGNOSTIC DATA: Electrocardiogram reveals sinus rhythm with nonspecific ST-T abnormalities. Blood work revealed white count of 7.6, hemoglobin and hematocrit of 12.7 and 39 with a platelet count of 251,000. Potassium 4.5, BUN and creatinine are 10 and 0.6. Three sets of cardiac enzymes are negative. IMPRESSION AND PLAN: Chest pain, suspect this is more likely noncardiac in nature, but given her recent history of stenting, repeat catheterization to definitively assess her coronary anatomy and to exclude any component of this early stent stenosis is advisable. Smoking abstinence should proceed. Resumption of statin and beta-tamara therapy is advised as well. The risks and benefits of the procedure were discussed with the patient. She is agreeable to proceed. This will be performed in the morning. Further recommendations will be based on those findings. Thank you for this consultation. Austen Jones MD
[2019-03-23] MEDS: VARENICLINE 1 MG PO SCH (09:37)
[2019-03-23] MEDS ORDERED: Midazolam 2 MG/2 ML VIAL ONE (09:45)
[2019-03-23] MEDS ORDERED: Nitroglycerin 50mg in D5W 50 MG/250 ML BOTTLE IV ONE (10:00)
[2019-03-23] MEDS ORDERED: Sodium Chloride 0.9% 1,000 ML IV SCH (10:15)
--- NOTE | 2019-03-23 13:43 | PN ---
DATE: 03/23/2019 SUBJECTIVE: The patient is seen lying in bed. She continues to have some vague chest discomfort at times. She is scheduled for cardiac catheterization this morning. Cardiac enzymes have been negative. PHYSICAL EXAMINATION: GENERAL: She is an overweight middle-aged woman. VITAL SIGNS: Blood pressure is 122/80 with a pulse of 60 and sinus, respirations of 14. She is afebrile. HEENT: No JVD. CHEST: Few scattered rhonchi. HEART: Normal first and second sounds. No pathological murmurs noted. ABDOMEN: Soft, mildly obese, nontender with bowel sounds. EXTREMITIES: No edema. DIAGNOSTICS DATA: Potassium 4.9, BUN and creatinine 10 and 0.6. White count 7.8, hemoglobin and hematocrit 12.9 and 39.7, platelet count of 266,000. CURRENT MEDICATIONS: Include aspirin, Plavix, Lipitor, losartan, Protonix, and Topamax. IMPRESSION AND PLAN: Recurrent chest pain. Unclear if this is cardiac or GI in nature given her present symptoms a repeat catheterization will be planned today to verify patency of her recently placed stent as well as to exclude any other cardiac issues. Further recommendations will be made based on those results. Austen Jones MD MTDD
--- NOTE | 2019-03-23 16:43 | CARDCATH ---
PROCEDURE DATE: 03/23/2019 PROCEDURES: 1. Selective left and right coronary angiography. HISTORY: This is a 48-year-old woman with known coronary disease status post recent PCI of her RCA, who was readmitted with severe chest pain. She has had crushing retrosternal chest pain on and off for the past several weeks. She did receive some relief with nitroglycerin in the emergency room. Cardiac enzymes have been negative and electrocardiogram is unchanged. Given her impressive symptoms, cardiac catheterization was recommended to exclude any early stent problems. INDICATION: As above. A 6-Turkmen arterial sheath was placed into the right femoral artery and standard angiography performed with right left Tatiana catheters. Conscious sedation was administered by me and the patient was observed under my supervision and nursing observation from 09:41 a.m. until 09:58 p.m. FINDINGS: Aortic pressure was 120/70, left heart pressure was not measured. CORONARY ANGIOGRAPHY: 1. Left mainstem was long and normal. 2. Left anterior descending artery branches were patent and normal. 3. The left circumflex artery had a widely patent stent in its midportion. There was no evidence of significant disease in the left circumflex system. RIGHT CORONARY ARTERY Was dominant. With the initial injection, there was evidence of diffuse vessel narrowing in the mid and early distal segment of the vessel as well as in the posterolateral branch and PDA branches. The previously placed stent was patent. Catheter was withdrawn slightly and repeat injection showed some improvement in the vessel caliber. 200 mcg of the intracoronary nitroglycerin was infused with complete resolution of what appeared to be catheter-induced vessel spasm. Left ventriculogram was deferred. CONCLUSION: 1. Patent RCA and LCX stents. 2. Catheter-induced coronary spasm possibly suggestive of vasospasm as cause of her symptomatology. RECOMMENDATIONS Continued aspirin and Plavix therapy is planned. Statin therapy will continue as well. The patient will be started on a calcium channel tamara for antispasmodic purposes. Continued smoking abstinence was advised. Austen Jones MD
--- NOTE | 2019-03-23 16:44 | CP.PCM.DIS ---
Provider - Provider Date of Admission: 03/21/19 16:37 Attending physician: Suzy Nevarez DO Primary care physician: NO PRIMARY CARE PROVIDER Consults: 03/21/19 20:30 Transition In Care/Readmission Reduction Routine Comment: Physician Instructions: Reason For Exam: READMISSION Time Spent in preparation of Discharge (in minutes): 40 Diagnosis - Discharge Diagnosis (1) Angina at rest Status: Resolved (2) Chest pain Status: Resolved Priority: High (3) Migraine Status: Resolved (4) Tobacco use disorder Status: Chronic Hospital Course - Lab Results Lab Results: Micro Results 03/21/19 16:00 Urine,Clean Catch Urine Culture - Final 10-50,000 CFU/ML. MULTIPLE SPECIES. PROBABLE CONTAMINATION. Most Recent Lab Values WBC 7.8 10^3/uL (4.5-11.0) 03/23/19 06:35 RBC 3.96 10^6/uL (3.5-6.1) 03/23/19 06:35 Hgb 12.9 g/dL (12.0-16.0) 03/23/19 06:35 Hct 39.7 % (36.0-48.0) 03/23/19 06:35 MCV 100.3 fl (80.0-105.0) 03/23/19 06:35 MCH 32.6 pg (25.0-35.0) 03/23/19 06:35 MCHC 32.5 g/dl (31.0-37.0) 03/23/19 06:35 RDW 12.4 % (11.5-14.5) 03/23/19 06:35 Plt Count 266 10^3/uL (120.0-450.0) 03/23/19 06:35 MPV 9.7 fl (7.0-11.0) 03/23/19 06:35 Neut % (Auto) 50.3 % (50.0-68.0) 03/23/19 06:35 Lymph % (Auto) 41.6 % (22.0-35.0) H 03/23/19 06:35 Mcdonald % (Auto) 4.3 % (1.0-6.0) 03/23/19 06:35 Eos % (Auto) 3.4 % (1.5-5.0) 03/23/19 06:35 Baso % (Auto) 0.4 % (0.0-3.0) 03/23/19 06:35 Lymph # (Auto) 3.3 (1.2-3.4) 03/23/19 06:35 Mcdonald # (Auto) 0.3 (0.1-0.6) 03/23/19 06:35 Eos # (Auto) 0.3 (0.0-0.7) 03/23/19 06:35 Baso # (Auto) 0.03 K/mm3 (0.0-2.0) 03/23/19 06:35 Absolute Neuts (auto) 3.94 (1.4-6.5) 03/23/19 06:35 APTT 23.4 Seconds (26.9-38.3) L 03/21/19 14:10 D-Dimer, Quantitative 224 ng/mlDDU (0-243) 03/21/19 19:42 Sodium 143 mmol/L (132-148) 03/23/19 06:35 Potassium 4.9 mmol/L (3.6-5.0) 03/23/19 06:35 Chloride 111 mmol/L (98-107) H 03/23/19 06:35 Carbon Dioxide 25 mmol/L (21-33) 03/23/19 06:35 Anion Gap 12 (10-20) 03/23/19 06:35 BUN 10 mg/dL (7-21) 03/23/19 06:35 Creatinine 0.6 mg/dl (0.7-1.2) L 03/23/19 06:35 Est GFR ( Amer) > 60 03/23/19 06:35 Est GFR (Non-Af Amer) > 60 03/23/19 06:35 Random Glucose 90 mg/dL (70-110) 03/23/19 06:35 Hemoglobin A1c 5.5 % (4.2-6.5) 03/22/19 03:01 Calcium 8.9 mg/dL (8.4-10.5) 03/23/19 06:35 Phosphorus 4.0 mg/dL (2.5-4.5) 03/22/19 03:01 Magnesium 2.2 mg/dL (1.7-2.2) 03/22/19 03:01 Total Bilirubin 0.4 mg/dL (0.2-1.3) 03/23/19 06:35 AST 30 U/L (14-36) 03/23/19 06:35 ALT 9 U/L (7-56) 03/23/19 06:35 Alkaline Phosphatase 75 U/L (38-126) 03/23/19 06:35 Troponin I < 0.01 ng/mL 03/22/19 03:01 NT-Pro-B Natriuret Pep 227 pg/mL (0-450) 03/21/19 15:40 Total Protein 6.5 g/dL (5.8-8.3) 03/23/19 06:35 Albumin 3.6 g/dL (3.0-4.8) 03/23/19 06:35 Globulin 2.9 gm/dL 03/23/19 06:35 Albumin/Globulin Ratio 1.2 (1.1-1.8) 03/23/19 06:35 Triglycerides 91 mg/dL (35-160) 03/22/19 03:01 Cholesterol 147 mg/dL (130-200) 03/22/19 03:01 LDL Cholesterol Direct 102 mg/dL (0-129) 03/22/19 03:01 HDL Cholesterol 31 mg/dL (29-60) 03/22/19 03:01 TSH 3rd Generation 3.04 mIU/mL (0.46-4.68) 03/22/19 03:01 Urine Color Yellow (YELLOW) 03/21/19 15:20 Urine Appearance Turbid (CLEAR) 03/21/19 15:20 Urine pH 7.0 (4.7-8.0) 03/21/19 15:20 Ur Specific [place] 1.020 (1.005-1.035) 03/21/19 15:20 Urine Protein Trace mg/dL (<30 mg/dL) H 03/21/19 15:20 Urine Glucose (UA) Negative mg/dL (NEGATIVE) 03/21/19 15:20 Urine Ketones Negative mg/dL (NEGATIVE) 03/21/19 15:20 Urine Blood Large (NEGATIVE) H 03/21/19 15:20 Urine Nitrate Negative (NEGATIVE) 03/21/19 15:20 Urine Bilirubin Negative (NEGATIVE) 03/21/19 15:20 Urine Urobilinogen 0.2 E.U./dL (<1 E.U./dL) 03/21/19 15:20 Ur Leukocyte Esterase Trace Ellie/uL (NEGATIVE) H 03/21/19 15:20 Urine RBC Tntc /hpf (0-2) H 03/21/19 15:20 Urine WBC 0 - 2 /hpf (0-6) 03/21/19 15:20 - Hospital Course Hospital Course: Chito Key DO, PGY-1 Hospitalist Discharge Summary for Dr. Flakita Nevarez Prior to admission: Patient is a 48 year old female with PMH of HTN, CAD (recent HI, s/p PCI), diverticulitis, tobacco abuse, and fibromyalgia who presented to ED with a complaint of chest pain that had worsened over the past 3 days prior to presentation. Of note, patient had recently been admitted for HI and had stents placed 3 weeks prior. She was subsequently admitted for ACS r/o. Hospitalization course: Patient was evaluated by her primary event marketing assistant, Dr. Jones. Patient underwent f/u cardiac cath today. 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 She was seen and examined s/p cath and stated that she felt better. Her CP had resolved after first administration of norvasc. She was maintained in supine position s/p cath as per protocol and was recommended for discharge per Dr. Jones afterward. Patient was subsequently instructed to stop taking her home dose of cozaar and was instead started on CCB (norvasc). Prescriptions were given to patient prior to discharge with appropriate outpatient f/u instructions as below. Discharge plan was discussed with patient. All questions were answered. Patient seen, examined, and discharge plan discussed with my attending Dr. Flakita Key D.O. IM Resident PGY-1 Discharge Exam - Head Exam Head Exam: ATRAUMATIC, NORMOCEPHALIC - Eye Exam Eye Exam: EOMI, PERRL - ENT Exam ENT Exam: Mucous Membranes Moist - Neck Exam Neck exam: Full Rom, Normal Inspection - Respiratory Exam Respiratory Exam: Clear to PA & Lateral, UNREMARKABLE. absent: Accessory Muscle Use, Rales, Rhonchi, Wheezes, Respiratory Distress - Cardiovascular Exam Cardiovascular Exam: REGULAR RHYTHM, RRR, +S1, +S2. absent: Diastolic murmur, Gallop, Rubs, Systolic Murmur - GI/Abdominal Exam GI & Abdominal Exam: Normal Bowel Sounds, Soft, Unremarkable. absent: Tenderness - Extremities Exam Extremities exam: full ROM Additional comments: R groin examined s/p cath, no visible hematoma, erythema, or other concerning findings - Back Exam Additional comments: not examined as patient was lying supine s/p cath - Neurological Exam Neurological exam: Alert, Oriented x3 - Psychiatric Exam Psychiatric exam: Normal Affect, Normal Mood - Skin Skin Exam: Dry, Intact, Warm Discharge Plan - Discharge Medications Prescriptions: amLODIPine [Norvasc] 10 mg PO DAILY #30 tab - Follow Up Plan Condition: FAIR Disposition: HOME/ ROUTINE Instructions: Chest Pain (DC), Chest Pain (GEN) Additional Instructions: Please follow up with your primary medical doctor within 3-5 days of discharge. Please follow up with Dr. Jones within 1 week of discharge. Please stop taking your home medication Cozaar. Please start taking Norvasc 10 mg daily. We have given you a 30 day supply, please get refills from your primary care doctor. Please follow up with your primary medical doctor, or Dr. Jones, to continue this and your other medicines. Please continue to take your other home medications as previously prescribed. If your symptoms return or you experience new concerning symptoms, please go to nearest emergency department. Referrals: Austen Jones MD [Staff Provider] - Austen Alvarez DO [Family Provider] -
[2019-03-23 18:23] VITALS: BP 135/83; PULSE 87
[2019-03-23 18:36] VITALS: RESP 20; TEMP 97.1
== END 2019-03-23 19:08 | disposition home or self-care (01) | DRG 281 ==
LOC: ED 13:32 → ERH 16:37 → 3RSO 18:58 → 2RSO 03-23 10:45
PROVIDERS: ADMIT Hospitalist; ATTEND Hospitalist
PROC: 4A023N7 Measurement of Cardiac Sampling and Pressure, Left Heart, Percutaneous Approach (ICD-10-PCS; principal; 2019-03-23)
PROC: B211YZZ Fluoroscopy of Multiple Coronary Arteries using Other Contrast (ICD-10-PCS; 2019-03-23)
DX: I25.111 Atherosclerotic heart disease of native coronary artery with angina pectoris with documented spasm (principal); I21.9 Acute myocardial infarction, unspecified; Z68.41 Body mass index [BMI] 40.0-44.9, adult; K57.92 Diverticulitis of intestine, part unspecified, without perforation or abscess without bleeding; I10 Essential (primary) hypertension; M79.7 Fibromyalgia; G43.909 Migraine, unspecified, not intractable, without status migrainosus; F17.200 Nicotine dependence, unspecified, uncomplicated; E66.9 Obesity, unspecified; Z79.02 Long term (current) use of antithrombotics/antiplatelets; Z79.82 Long term (current) use of aspirin; Z79.899 Other long term (current) drug therapy; Z90.721 Acquired absence of ovaries, unilateral; Z87.01 Personal history of pneumonia (recurrent); Z95.5 Presence of coronary angioplasty implant and graft; Z82.49 Family history of ischemic heart disease and other diseases of the circulatory system; Z80.1 Family history of malignant neoplasm of trachea, bronchus and lung